=== PATIENT | male | born 1950 | race Caucasian/White ===

== ENCOUNTER → 2018-01-18 09:57 | Outpatient (CLI) | payer BC, MEDICARE, SELFPAY ==
--- NOTE | 2018-01-18 | DI.US.S_ITS ---
PROCEDURE: US ARTERIAL DUPLEX LE BI INDICATIONS: CLAUDICATION BILATERAL TECHNIQUE: Color and pulse Doppler interrogation was performed of both lower extremity arterial systems, with image documentation. COMPARISON: None. FINDINGS: Right lower extremity: Common femoral artery: 111 cm/sec, with triphasic flow. Deep femoral artery: 43 cm/sec, with biphasic flow. Proximal superficial femoral artery: 97 cm/sec, with phasic flow. Mid superficial femoral artery: 88 cm/sec, with triphasic flow. Distal superficial femoral artery: 81 cm/sec, with triphasic flow. Popliteal artery: 77 cm/sec, with triphasic flow. Posterior tibial artery: 68 cm/sec, with biphasic flow. Anterior tibial artery/dorsalis pedis: 48 cm/sec, with triphasic flow. Peterson-scale imaging description: Mild atheromatous plaque throughout. No hemodynamically significant stenosis. Left lower extremity: Common femoral artery: 111 cm/sec, with triphasic flow. Deep femoral artery: 46 cm/sec, with biphasic flow. Proximal superficial femoral artery: 71 cm/sec, with biphasic flow. Mid superficial femoral artery: 78 cm/sec, with triphasic flow. Distal superficial femoral artery: 70 cm/sec, with triphasic flow. Popliteal artery: 82 cm/sec, with triphasic flow. Posterior tibial artery: 58 cm/sec, with triphasic flow. Anterior tibial artery/dorsalis pedis: 33 cm/sec, with triphasic flow. Peterson-scale imaging description: Mild atheromatous plaque throughout. No hemodynamically significant stenosis. IMPRESSION: 1. Mild scattered atheromatous plaque is present throughout the bilateral lower extremities. No hemodynamically significant stenosis to explain patient's calf pain. Dictated by: Paradise Read M.D. on 01/18/2018 at 11:25 Approved by: Paradise Read M.D. on 01/18/2018 at 11:29
== END ==
PROVIDERS: Visit Provider Family Medicine
DX: I73.9 Peripheral vascular disease, unspecified (principal)
CPT/HCPCS: 93925

== ENCOUNTER 2019-09-15 16:48 | Emergency (ER) | payer BC, MEDICARE, SELFPAY ==
--- NOTE | 2019-09-15 16:54 | DI.CT.S_ITS ---
PROCEDURE: CT CERVICAL SPINE WO CON INDICATIONS: mechanical fall, stubled, + LOC, on Coumadin. TECHNIQUE: Noncontrast 3 mm thick sections acquired from the skull base to the T4 level. Sagittal and coronal reformats were then constructed. For radiation dose reduction, the following was used: automated exposure control, adjustment of mA and/or kV according to patient size. COMPARISON: [facility], CR, XR HAND RT MIN 3V, 09/15/2019, 17:16. [facility], CT, CT FACIAL BONES WO CON, 09/15/2019, 17:02. [facility], CT, CT HEAD/BRAIN WO CON, 09/15/2019, 17:02. [facility], MR, C-SPINE WITHOUT CONTRAST, 12/22/2015, 7:52. FINDINGS: Image quality: This examination is limited by involuntary motion artifact. Bones: No fractures or dislocations. Visualized superior ribs are intact. There is mild retrolisthesis seen at the C2-C3 level. 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 There is minimal retrolisthesis seen at C4-C5. The C5-C6 disc space is relatively well-preserved, although bridging anterior osteophytes are seen anteriorly. At C6-C7, there is at least moderate disc space narrowing. Bridging anterior osteophytes are seen anteriorly. At C7-T1, there is moderate to severe loss of disc height seen. Bridging anterior osteophytes are seen. Posteriorly projected endplate osteophytes are seen. Soft tissues: Prevertebral soft tissues are normal in thickness. No paravertebral hematomas. No apical pneumothoraces. IMPRESSION: No acute fractures are seen. Multiple levels of degenerative change are seen, which are progressed compared to 2016. The alignment abnormalities are similar to 2016. Dictated by: Osmin Saul M.D. on 09/15/2019 at 16:46 Approved by: Osmin Saul M.D. on 09/15/2019 at 16:49
--- NOTE | 2019-09-15 16:54 | DI.CT.S_ITS ---
PROCEDURE: CT HEAD/BRAIN WO CON INDICATIONS: mechanical fall, stubled, + LOC, on coumadin. TECHNIQUE: Noncontrast 4.5 mm thick angled axial sections acquired from the foramen magnum to the vertex, with coronal and sagittal reformats. For radiation dose reduction, the following was used: automated exposure control, adjustment of mA and/or kV according to patient size. COMPARISON: [facility], MR, BRAIN W&WO CONTRAST, 09/27/2014, 18:15. [facility], CR, XR HAND RT MIN 3V, 09/15/2019, 17:16. [facility], CT, CT CERVICAL SPINE WO CON, 09/15/2019, 17:02. [facility], CT, CT FACIAL BONES WO CON, 09/15/2019, 17:02. FINDINGS: Image quality: Excellent. CSF spaces: Basal cisterns are patent. No extra-axial fluid collections. The ventricles are symmetric in size and shape. Brain: No intracranial bleeds or masses. There is cerebral volume loss for age, with resultant ventricular and sulcal prominence. There are periventricular and deep white matter chronic small vessel ischemic changes. There is intracranial internal carotid artery atherosclerosis. Skull and face: Calvarium and visualized facial bones appear intact, without suspicious lesions. Sinuses: Visualized sinuses and mastoids are clear. IMPRESSION: Unremarkable intracranial study for age, without acute intracranial hemorrhage. Note is made of age-appropriate brain parenchymal volume loss and chronic small vessel ischemic changes. Dictated by: Osmin Saul M.D. on 09/15/2019 at 16:42 Approved by: Osmin Saul M.D. on 09/15/2019 at 16:43
[2019-09-15 16:55] VITALS: BP 134/107; PULSE 77; RESP 14; TEMP 36.6; O2SAT 98
--- NOTE | 2019-09-15 17:04 | DI.CT.S_ITS ---
PROCEDURE: CT FACIAL BONES WO CON INDICATIONS: fall, on Coumadin, facial trauma on right TECHNIQUE: Noncontrast 2.5 mm thick axial images acquired from the mandible through the frontal sinuses, with coronal and sagittal reformatting. For radiation dose reduction, the following was used: automated exposure control, adjustment of mA and/or kV according to patient size. COMPARISON: [facility], CR, XR HAND RT MIN 3V, 09/15/2019, 17:16. [facility], CT, CT CERVICAL SPINE WO CON, 09/15/2019, 17:02. [facility], CT, CT HEAD/BRAIN WO CON, 09/15/2019, 17:02. FINDINGS: Image quality: Excellent. Bones and teeth: Orbital salinas are intact. Sinus salinas show no fracture or deformity. Nasal bones and septum are intact. Visualized portions of the mandible demonstrate no fractures or subluxation. Zygomatic arches are intact. Pterygoid plates are intact. Visualized portions of the skull base and auditory canals are intact. Sinuses: Mild mucosal thickening is seen involving the inferior right maxillary sinus. Paranasal sinuses are otherwise well aerated, without fluid levels, mucosal thickening, or mucoceles. Mastoid air cells are aerated. Soft tissues: Mild soft tissue irregularity and hematoma can be seen involving the right cheek. Vascular: Visualized vascular structures appear normal in the absence of contrast. Bony vascular foramina and canals are intact. IMPRESSION: No displaced facial bone fractures are seen. Mild soft tissue facial injury on the right. Focal mild right maxillary sinus disease. Dictated by: Osmin Saul M.D. on 09/15/2019 at 16:43 Approved by: Osmin Saul M.D. on 09/15/2019 at 16:46
--- NOTE | 2019-09-15 17:04 | DI.RAD.S_ITS ---
PROCEDURE: XR HAND RT MIN 3V INDICATIONS: fall, on Coumadin, facial trauma on right TECHNIQUE: 3 views of the hand(s) acquired. COMPARISON: None. FINDINGS: Bones: Mildly comminuted fractures are seen involving the 4th and 5th metacarpal bases. No definite intra-articular involvement is detected. No definite additional fractures are detected. Age-appropriate bony degenerative changes are seen. No suspicious lytic or blastic lesions are seen. Soft tissues: No suspicious soft tissue calcifications. IMPRESSION: Fractures are seen involving the 4th and 5th metacarpal bases. If it would be helpful for clinical management decision making, please consider a dedicated hand CT for further evaluation. Dictated by: Osmin Saul M.D. on 09/15/2019 at 16:29 Approved by: Osmin Saul M.D. on 09/15/2019 at 16:31
[2019-09-15] MEDS: TET,DIPH,PERTUSS(ACELL),VAC/PF 0.5 ML SYRINGE IM (17:13)
--- NOTE | 2019-09-15 17:24 | ED.HEATRA ---
HPI - Head Injury General Chief complaint: Trauma Stated complaint: GLF, hit his face Time Seen by Provider: 09/15/19 16:58 Source: patient and family Mode of arrival: Ambulatory Limitations: no limitations History of Present Illness HPI Narrative: CC: A mechanical trip and fall with head neck and facial injury. HPI: The patient is a 69-year-old male with a chronic history of atrial fibrillation for which she is on Xarelto. The patient states that he has had surgery on his back with an infection and now has a week right leg that he must use a cane to ambulate. He states that he was outside and tripped and fell. He used his right hand try and break his fall and injured his right hand. He struck his head on the pavement and is unsure whether or not he lost consciousness but does not remember after the fall and getting up. He complains of a mild headache and right facial pain with an abrasion over his face. He denies any incontinence of urine or stool or seizure activity. He has had no abdominal pain nausea vomiting. He currently has a headache but denies any neck pain. He denies any loss of vision blind spots in front of his eyes however he states that his eyes did not want a focus and seem to want across. He complains of chronic back pain but denies any chest pain or shortness of breath. He has a mild cough. He is a former smoker. He has had no nasal congestion sinus congestion sore throat. He has had no diarrhea and no urinary symptoms. Related Data Home Medications Medication Instructions Recorded Confirmed melatonin 10 mg PO HS #0 06/02/17 09/25/19 trazodone 100 mg PO BEDTIME #0 06/02/17 09/25/19 Xarelto 20 mg PO DAILY 09/15/19 09/25/19 Alfuzosine 10 mg PO DAILY 09/20/19 09/20/19 cyclobenzaprine 10 mg PO TID PRN 09/20/19 09/25/19 famotidine 20 mg PO DAILY 09/20/19 09/25/19 furosemide 20 mg PO DAILY 09/20/19 09/25/19 lisinopril 2.5 mg PO DAILY 09/20/19 09/25/19 metoclopramide HCl [Reglan] 5 mg PO TID 09/20/19 09/25/19 omeprazole 40 mg PO DAILY 09/20/19 09/25/19 oxybutynin chloride 10 mg PO DAILY 09/20/19 09/25/19 pramipexole 0.25 mg PO DAILY 09/20/19 09/25/19 spironolactone 25 mg PO DAILY 09/20/19 09/25/19 Previous Rx's Medication Instructions Recorded hydrocodone-acetaminophen 1 tab PO Q6H PRN 7 Days #20 tab 09/29/19 miscellaneous medical supply See Rx Instructions .ROUTE 09/29/19 .COMPLEX #1 each Allergies Allergy/AdvReac Type Severity Reaction Status Date / Time methadone [METHADONE] Allergy Unknown Verified 09/20/19 12:19 Review of Systems Review of Systems Narrative: His review of systems were all negative except for those mentioned in the history of present illness. 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 Does not appear toxic or ill. HEAD: AT/NC except for an abrasion over his right lateral cheek/maxilla and zygoma. He is diffusely tender to palpation in this area without any depression or bony deformity. EENT: PERRL, FROM of eyes, no discharge, no nystagmus EARS:No drainage from the ears, Tympanic membranes intact bilaterally, clear EAC, no evidence of hemotympanum. NOSE:No epistaxis or nasal drainage MOUTH:Oral mucosa is moist and pink, posterior pharynx is without erythema or exudate. NECK: Supple, no obvious JVD, Trachea is midline without stridor, no palpable LN. SPINE: Palpationof the cervical, Thoracic, and Sacral spine reveals no gross deformity or tenderness. No CVA tenderness. The patient has a scar over the lower lumbar spine which is tender to palpation. THORAX: No deformity, retractions, chest wall tenderness. LUNGS: Clear, symmetrical breath sounds without respiratory distress. HEART: Normal heart tones, heart tones are distant and irregular irregular without an appreciable murmur. ABDOMEN: Soft, non-tender, normal bowel sounds without guarding, rebound, rigidity or palpable mass. EXTREMITIES: No edema, deformity,or cyanosis. The patient's right hand was used to catch himself. He has no tenderness or deformity of the distal radius or ulna. The patient's the patient is tender to palpation over his 3rd 4th and 5th metacarpals of his right hand. He has an abrasion over the palmar metacarpophalangeal joint of his right hand. SKIN: No rash, bruising, petechiae or purpura noted other than those already mentioned. NEURO: Awake, alert, oriented, conversive, cranial nerves II-XII are symmetrical , moves all 4 extremities and is ambulatory with a cane. The patient has symmetrical sensation. The patellar reflex on the left was 1+ well on the right it was 2+. The patient has no drift in his right or left hand in arms against gravity. The patient cannot hold his right leg off the bed against gravity. The right leg drops to the at and then is lifted slightly off the bed. The patient has symmetrical dorsiflexion and plantar flexion strength in his feet. 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 Initial Vital Signs Initial Vital Signs: Vital Signs Temperature 97.8 F 09/15/19 16:55 Pulse Rate 77 09/15/19 16:55 Respiratory Rate 14 09/15/19 16:55 Blood Pressure 134/107 H 09/15/19 16:55 Pulse Oximetry 98 09/15/19 16:55 Course Orders Ordered: Discontinued Medications Hydrocodone Bitart/Acetaminophen (Amagon 5/325) 1 tab PO NOW ONE Stop: 09/15/19 18:08 Last Admin: 09/15/19 18:43 Dose: 1 tab Documented by: RSTONE Diphtheria/Tetanus/Acell Pertussis (Adacel) 0.5 ml IM .ONCE ONE Stop: 09/15/19 17:01 Last Admin: 09/15/19 17:13 Dose: 0.5 ml Documented by: LU Vital Signs Vital signs: Vital Signs - 8 hr 09/15/19 16:55 Temperature 97.8 F Pulse Rate 77 Respiratory Rate 14 Blood Pressure 134/107 H Pulse Oximetry 98 MDM - Head Injury Medical Records Attestation: I reviewed the patient's medical records. Lab Data Attestation: I reviewed the patient's lab results. Result diagrams: 09/15/19 17:34 09/15/19 17:34 Labs: Lab Results 09/15/19 09/15/19 09/15/19 Range/Units 17:34 17:34 17:34 WBC 5.5 (4.5-11.0) X10^3/uL RBC 4.46 L (4.5-5.9) X10^6/uL Hgb 14.0 (13.5-17.5) g/dL Hct 39.8 L (41-53) % MCV 89.4 (80-100) fL MCH 31.4 (26-34) PG MCHC 35.1 (30-36) % RDW 13.4 (11.6-14.8) % Plt Count 251 (150-400) X10^3/uL Neut % (Auto) 57.9 (50-75) % Lymph % (Auto) 30.1 (25-40) % [place] % (Auto) 8.3 (3-14) % Eos % (Auto) 2.2 (2-4) % Baso % (Auto) 1.5 (0-2) % Neut # (Auto) 3200 (9422-0788) /uL Lymph # (Auto) 1700 (4987-6500) /uL [place] # (Auto) 500 (0-900) /uL Eos # (Auto) 100 (0-450) /uL Baso # (Auto) 100 (0-100) /uL PT 27.0 H (10.1-12.7) SECONDS INR 2.4 H (0.9-1.3) Sodium 130 L (137-145) mmol/L Potassium 4.5 (3.4-5.1) mmol/L Chloride 96 L (98-107) mmol/L Carbon Dioxide 27 (22-32) mmol/L BUN 13 (9-20) mg/dL Creatinine 0.91 (0.66-1.25) mg/dL Estimated GFR > 60.0 (>60) mL/min BUN/Creatinine Ratio 14.3 (6-22) Glucose 101 (80-110) mg/dL Calcium 9.3 (8.4-10.2) mg/dL Total Bilirubin 0.4 (0.2-1.3) mg/dL AST 25 (17-59) IU/L ALT 13 (<50) IU/L Alkaline Phosphatase 80 (38-126) U/L Total Protein 7.8 (6.3-8.2) g/dL Albumin 4.2 (3.5-5.0) g/dL Globulin 3.6 (1.7-4.1) g/dL Albumin/Globulin Ratio 1.2 (1.0-2.8) ECG Data Attestation: I personally reviewed and interpreted this ECG as follows: Interpretation: The patient's EKG obtained on September 14 at 5:13 p.m. reveals atrial fibrillation with a ventricular rate of 82. The QRS is 86 milliseconds in duration. QTC is 439 milliseconds. There is mild left axis deviation. The patient has a Q-wave in lead III he and V1 with inverted T-waves in V1 and III. There is also an inverted T-wave in AVF. The patient has artifact in V1. There is low-voltage throughout the precordial leads. There is no acute diagnostic ST segment changes. The EKG is consistent with inferior wall ischemia. Discharge Plan Departure Patient Disposition: Home Clinical Impression: Head, face & neck injury, Fall, Concussion, Abrasion of face, Atrial fibrillation, Injury of hand, right Discharge Date/Time: 09/15/19 19:38 Instructions: DI for Concussion, DI for a Hand Fracture, DI for Closed Head Injury, DI for Abrasion Activity Restrictions/Additional Instructions: 1. Follow up with Dr. Cowan for the fractures in your right hand. 2. The CT scans of your face head and neck revealed that there are no fractures of your facial bones the cervical spine or any bleeding inside your head. 3. Follow-up in be rechecked by calling your primary care physician on Tuesday. If you develop increasing confusion disorientation, persistent nausea and vomiting worsening headache you need to return to the emergency department. 4. For your abrasion on your face, wash it daily and apply a triple antibiotic. Prescriptions: No Action melatonin 10 MG capsule 10 mg PO HS Qty: 0 RF: 0 trazodone 100 MG tablet 100 mg PO BEDTIME Qty: 0 RF: 0 Xarelto 20 mg tablet 20 mg PO DAILY RF: 0 Alfuzosine 10 mg PO DAILY RF: 0 cyclobenzaprine 10 mg Tablet 10 mg PO TID PRN (Reason: Spasms) RF: 0 oxybutynin chloride 10 mg Tablet Extended Release 24hr 10 mg PO DAILY RF: 0 spironolactone 25 mg Tablet 25 mg PO DAILY RF: 0 famotidine 20 mg Tablet 20 mg PO DAILY RF: 0 pramipexole 0.125 mg Tablet 0.25 mg PO DAILY RF: 0 omeprazole 20 mg Capsule,Delayed Release(Dr/Ec) 40 mg PO DAILY RF: 0 furosemide 20 mg Tablet 20 mg PO DAILY RF: 0 lisinopril 2.5 mg Tablet 2.5 mg PO DAILY RF: 0 metoclopramide HCl [Reglan] 5 MG tablet 5 mg PO TID RF: 0 hydrocodone-acetaminophen 5-325 mg Tablet 1 tab PO Q6H PRN (Reason: Muscle Pain) 7 Days Qty: 20 RF: 0 miscellaneous medical supply Misc See Rx Instructions .ROUTE .COMPLEX Qty: 1 RF: 0 Referrals: Cory Cowan MD [Physician] - (call for a follow up evaluation and treatment of metacarpal fractures of the right hand.)
[2019-09-15 17:35] VITALS: BP 122/74; PULSE 77; RESP 18; O2SAT 99
--- NOTE | 2019-09-15 17:38 | DI.RAD.S_ITS ---
PROCEDURE: XR CHEST 1V INDICATIONS: Trip, fall head, neck facial injury, cough TECHNIQUE: One view of the chest was acquired. COMPARISON: [facility], CR, XR HAND RT MIN 3V, 09/15/2019, 17:16. [facility], CT, CT HEAD/BRAIN WO CON, 09/15/2019, 17:02. [facility], CT, CT FACIAL BONES WO CON, 09/15/2019, 17:02. [facility], CT, CT CERVICAL SPINE WO CON, 09/15/2019, 17:02. FINDINGS: Surgical changes and devices: None. Lungs and pleura: An incomplete inspiratory result is noted, causing a crowded appearance to the lung markings. No focal infiltrates are seen. No pneumothorax or significant pleural effusions are seen. Mediastinum: The cardiac contours are within normal limits. The aorta demonstrates calcification and tortuosity. Bones and chest wall: Age-appropriate bony degenerative changes are seen. No suspicious bony lesions. Overlying soft tissues appear unremarkable. IMPRESSION: No acute portable chest abnormality is seen. Dictated by: Osmin Saul M.D. on 09/15/2019 at 17:13 Approved by: Osmin aSul M.D. on 09/15/2019 at 17:14
[2019-09-15 17:43] LABS: Add Manual Diff / Slide Review NO; Basophils Absolute Auto 100 /uL (0-100); Basophils Percent Auto 1.5 % (0-2); Eosinophils Absolute Auto 100 /uL (0-450); Eosinophils Percent Auto 2.2 % (2-4); Hematocrit 39.8 % (41-53); Lymphocytes Absolute Auto 1700 /uL (1100-4500); Lymphocytes Percent Auto 30.1 % (25-40); Mean Corpuscular HGB Conc 35.1 % (30-36); Mean Corpuscular Hemoglobin 31.4 PG (26-34); Mean Corpuscular Volume 89.4 fL (80-100); Monocytes Absolute Auto 500 /uL (0-900); Monocytes Percent Auto 8.3 % (3-14); Neutrophils Absolute Auto 3200 /uL (1500-7000); Neutrophils Percent Auto 57.9 % (50-75); Platelet Count 251 X10^3/uL (150-400); Red Blood Cell Count 4.46 X10^6/uL (4.5-5.9); Red Cell Distribution Width 13.4 % (11.6-14.8); White Blood Cell Count 5.5 X10^3/uL (4.5-11.0)
[2019-09-15 17:52] LABS: INR 2.4 (0.9-1.3)
[2019-09-15 17:55] LABS: Alanine Aminotransferase 13 IU/L (<50); Albumin 4.2 g/dL (3.5-5.0); Albumin Globulin Ratio 1.2 (1.0-2.8); Alkaline Phosphatase 80 U/L (38-126); Aspartate Aminotransferase 25 IU/L (17-59); BUN Creatinine Ratio 14.3 (6-22); Bilirubin Total 0.4 mg/dL (0.2-1.3); Blood Urea Nitrogen 13 mg/dL (9-20); Calcium 9.3 mg/dL (8.4-10.2); Carbon Dioxide 27 mmol/L (22-32); Chloride 96 mmol/L (98-107); Estimated Glomerular Filt Rate > 60.0 mL/min (>60); Globulin 3.6 g/dL (1.7-4.1); Glucose 101 mg/dL (80-110); HEMOLYSIS < 15 (0-50); Potassium 4.5 mmol/L (3.4-5.1); Sodium 130 mmol/L (137-145); Total Protein 7.8 g/dL (6.3-8.2)
[2019-09-15] MEDS: HYDROCODONE/ACET 5/325 TABLET 1 TAB PO (18:43)
[2019-09-15 18:48] VITALS: BP 126/67; PULSE 76; RESP 16; O2SAT 98
[2019-09-15 19:37] VITALS: BP 137/87; PULSE 83; RESP 16; TEMP 36.5; O2SAT 99
== END 2019-09-15 19:38 | disposition home or self-care (01) ==
PROVIDERS: Emergency Provider Emergency Medicine
DX: S19.9XXA Unspecified injury of neck, initial encounter (principal); S06.0X0A Concussion without loss of consciousness, initial encounter; S00.81XA Abrasion of other part of head, initial encounter; S69.91XA Unspecified injury of right wrist, hand and finger(s), initial encounter; I48.91 Unspecified atrial fibrillation; Z79.01 Long term (current) use of anticoagulants; Z23 Encounter for immunization; W19.XXXA Unspecified fall, initial encounter; R07.9 Chest pain, unspecified
CPT/HCPCS: 29125; 36415; 70450; 70486; 71045; 72125; 73130; 80053; 85025; 85610; 90471; 93005; 93010; 99285; 90715

== ENCOUNTER 2019-09-20 12:07 | Inpatient (IN) | payer BC, MEDICARE, SELFPAY ==
[2019-09-20] VITALS (8 sets, daily range): BP systolic 111–147; BP diastolic 62–87; PULSE 81–94; RESP 15–19; TEMP 36.2–37.2; O2SAT 97–100; BMI 28.0
--- NOTE | 2019-09-20 12:20 | ED_ITS ---
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 Patient presents to the emergency department reporting left-sided ankle and foot pain that started yesterday. He reports falling a few days ago from what he believes to be a slippery bathroom floor but did not experience ankle pain at this time. Patient reports a dull aching 5/10 pain that is worse with weight-bearing and palpation. Today he was not able to put any weight on his ankle. Patient denies any difficulty wiggling his toes. He denies any other injury such as hitting his head, hip pain, knee p ain, chills, cough, shortness of breath, chest pain, syncope, dizziness or any other concerns. Family states he has had a temp of 99?F for the past 2 nights without any other symptoms. Patient has a cast on right wrist from previous injury from fall. Related Data Home Medications Medication Instructions Recorded Confirmed melatonin 10 mg PO HS #0 06/02/17 09/25/19 trazodone 100 mg PO BEDTIME #0 06/02/17 09/25/19 Xarelto 20 mg PO DAILY 09/15/19 09/25/19 Alfuzosine 10 mg PO DAILY 09/20/19 09/20/19 cyclobenzaprine 10 mg PO TID PRN 09/20/19 09/25/19 famotidine 20 mg PO DAILY 09/20/19 09/25/19 furosemide 20 mg PO DAILY 09/20/19 09/25/19 hydrocodone-acetaminophen 1 tab PO Q6H PRN 09/20/19 09/25/19 lisinopril 2.5 mg PO DAILY 09/20/19 09/25/19 metoclopramide HCl [Reglan] 5 mg PO TID 09/20/19 09/25/19 metoprolol succinate 25 mg PO BID 09/20/19 09/25/19 omeprazole 40 mg PO DAILY 09/20/19 09/25/19 oxybutynin chloride 10 mg PO DAILY 09/20/19 09/25/19 pramipexole 0.25 mg PO DAILY 09/20/19 09/25/19 spironolactone 25 mg PO DAILY 09/20/19 09/25/19 Previous Rx's Medication Instructions Recorded cephalexin 500 mg PO Q8H #20 cap 09/22/19 Allergies Allergy/AdvReac Type Severity Reaction Status Date / Time methadone [METHADONE] Allergy Unknown Verified 09/20/19 12:19 Review of Systems <JULIUS Davis - Last Filed: 09/20/19 18:35> Review of Systems Narrative: REVIEW OF SYSTEMS: GENERAL: Denies chills. HENT: No head trauma. EYES: No double vision or vision loss. CARDIOVASCULAR: No chest pain or syncope. RESPIRATORY: No shortness of breath or cough. GASTROINTESTINAL: No nausea, vomiting, diarrhea, or constipation. MUSCULOSKELETAL: Complains of right ankle and foot pain, see HPI. INTEGUMENTARY: No rash, lesions, or pruritus. NEURO: No numbness, tingling. Patient History <JULIUS Davis - Last Filed: 09/20/19 18:35> Social History household members: spouse Smoking Status: Former smoker alcohol intake: current Smoking Status: Former smoker alcohol intake frequency: 0-2 drinks per day Substance Use Type: does not use Exam <JULIUS Davis - Last Filed: 09/20/19 18:35> Initial Vital Signs Initial Vital Signs: Vital Signs Temperature 98.9 F 09/20/19 12:10 Pulse Rate 87 09/20/19 12:10 Respiratory Rate 15 09/20/19 12:10 Blood Pressure 131/87 09/20/19 12:10 Pulse Oximetry 97 09/20/19 12:10 PHYSICAL EXAMINATION: GENERAL: Well groomed, alert, and cooperative. Answers questions promptly and appropriately. Vital signs noted. HENT: Normocephalic, atraumatic. EYES: Symmetrical, sclera white, no periorbital swelling. CARDIOVASCULAR: AFib as seen on monitor. RESPIRATORY: Normal respiratory rate, trachea midline, airway patent. No stridor, nasal flaring or accessory muscle use. MUSCULOSKELETAL: Tenderness and mild to moderate swelling noted to left lateral malleolus, some tenderness to right malleolus. Patient also exhibits some tenderness to distal aspect of 5th metatarsal. No ecchymosis. No pain to palpation of knee. EXTREMITIES: CMS intact. No pedal edema. SKIN: Warm, dry, soft, appropriate color for ethnicity. No lesions, rashes, or wounds on visible area. NEURO: Alert and Oriented X 3. PSYCH: Appropriate affect and mood. <Serjio Palma MD - Last Filed: 09/29/19 07:55> Initial Vital Signs Initial Vital Signs: Vital Signs Temperature 98.9 F 09/20/19 12:10 Pulse Rate 87 09/20/19 12:10 Respiratory Rate 15 09/20/19 12:10 Blood Pressure 131/87 09/20/19 12:10 Pulse Oximetry 97 09/20/19 12:10 Course <JULIUS Davis - Last Filed: 09/20/19 18:35> Course Course Narrative: Discussed with patient and daughter about discharge instructions, daughter was concerned about mobility around the house as patient is unable to bear weight on ankle. Physical therapy was called for re-evaluation. Patient was given a Vicodin before evaluation to help with pain in hopes of improving mobility. Physical therapy evaluated patient, reported he was very unstable, patient was unable to use walker due to fracture right wrist. Patient is at increased risk for falls due to previous drop foot and current left ankle swelling and cellulitis. Orders Ordered: Discontinued Medications Acetaminophen (Tylenol) 650 mg PO NOW ONE Stop: 09/20/19 12:24 Last Admin: 09/20/19 12:54 Dose: 650 mg Documented by: DENIZ Acetaminophen (Tylenol) 650 mg PO Q6HR PRN PRN Reason: Fever/Mild Pain (1-3) Hydrocodone Bitart/Acetaminophen ([place] 5/325) 1 tab PO NOW ONE Stop: 09/20/19 16:29 Last Admin: 09/20/19 16:34 Dose: 1 tab Documented by: LU Hydrocodone Bitart/Acetaminophen ([place] 5/325) 1 tab PO Q4HR PRN PRN Reason: Pain, Moderate (4-6) Last Admin: 09/22/19 09:02 Dose: 1 tab Documented by: Admin: 09/21/19 21:39 Dose: 1 tab Documented by: Admin: 09/21/19 16:53 Dose: 1 tab Documented by: Admin: 09/21/19 09:35 Dose: 1 tab Documented by: Admin: 09/21/19 05:06 Dose: 1 tab Documented by: Admin: 09/20/19 21:34 Dose: 1 tab Documented by: KAREL Bisacodyl (Dulcolax) 10 mg NM DAILY PRN PRN Reason: Constipation Cyclobenzaprine HCl (Flexeril) 10 mg PO TID PRN PRN Reason: Spasms Last Admin: 09/22/19 09:02 Dose: 10 mg Documented by: Admin: 09/21/19 21:40 Dose: 10 mg Documented by: Admin: 09/21/19 16:52 Dose: 10 mg Documented by: Admin: 09/21/19 09:35 Dose: 10 mg Documented by: Admin: 09/20/19 22:11 Dose: 10 mg Documented by: KAREL Docusate Sodium (Colace) 100 mg PO BID PRN PRN Reason: Constipation Last Admin: 09/21/19 09:35 Dose: 100 mg Documented by: Admin: 09/20/19 22:12 Dose: 100 mg Documented by: KAREL Famotidine (Pepcid Ac) 20 mg PO DAILY [facility] Last Admin: 09/22/19 07:47 Dose: 20 mg Documented by: Admin: 09/21/19 09:25 Dose: 20 mg Documented by: HATTIE Furosemide (Lasix) 20 mg PO DAILY [facility] Last Admin: 09/22/19 07:47 Dose: 20 mg Documented by: Admin: 09/21/19 09:25 Dose: 20 mg Documented by: HATTIE Heparin Sodium (Porcine) (Heparin) 5,000 unit SUBCUT BID [facility] Last Admin: 09/20/19 21:34 Dose: 5,000 unit Documented by: KAREL Vancomycin HCl/Dextrose (Vancomycin) 1,500 mg in 300 mls @ 200 mls/hr IV NOW ONE Stop: 09/20/19 16:11 Last Infusion: 09/20/19 16:59 Dose: 0 mls/hr Documented by: Admin: 09/20/19 15:18 Dose: 200 mls/hr Documented by: LU Sodium Chloride (Normal Saline 0.9%) 1,000 mls @ 150 mls/hr IV CONT SIVAN Last Infusion: 09/20/19 18:32 Dose: 0 mls/hr Documented by: Admin: 09/20/19 15:18 Dose: 150 mls/hr Documented by: LU Doxycycline Hyclate 100 mg/ (Sodium Chloride) 100 mls @ 100 mls/hr IV Q12H [facility] Last Infusion: 09/21/19 01:06 Dose: 0 mls/hr Documented by: Admin: 09/20/19 23:39 Dose: 100 mls/hr Documented by: KAREL Sodium Chloride (Normal Saline 0.9%) 250 mls @ 21 mls/hr IV Q24H PRN PRN Reason: Flush Last Admin: 09/20/19 23:39 Dose: 21 mls/hr Documented by: WANDA Ceftriaxone Sodium/Dextrose (Rocephin) 2 gm in 50 mls @ 100 mls/hr IV Q24H [facility] Last Infusion: 09/22/19 10:40 Dose: 0 mls/hr Documented by: Admin: 09/22/19 09:06 Dose: 100 mls/hr Documented by: Rosalinda Infusion: 09/21/19 12:31 Dose: 100 mls/hr Documented by: Y Admin: 09/21/19 12:01 Dose: 100 mls/hr Documented by: HATTIE Vancomycin HCl/Dextrose (Vancomycin) 1,500 mg in 300 mls @ 200 mls/hr IV Q12H [facility] Last Infusion: 09/22/19 14:30 Dose: 0 mls/hr Documented by: Rosalinda Admin: 09/22/19 11:35 Dose: 150 mls/hr Documented by: Infusion: 09/22/19 01:29 Dose: 200 mls/hr Documented by: Admin: 09/21/19 23:59 Dose: 200 mls/hr Documented by: Infusion: 09/21/19 18:00 Dose: 200 mls/hr Documented by: Admin: 09/21/19 12:55 Dose: 200 mls/hr Documented by: CWOOD Sodium Chloride (Normal Saline 0.9%) 500 mls @ 1,000 mls/hr IV BOLUS ONE Stop: 09/22/19 07:56 Last Admin: 09/22/19 07:50 Dose: 1,000 mls/hr Documented by: BETHANY Ketorolac Tromethamine (Toradol) 15 mg IV Q6HR PRN PRN Reason: Pain, Moderate (4-6) Stop: 09/25/19 19:44 Last Admin: 09/21/19 17:52 Dose: 15 mg Documented by: KAREL Lisinopril (Zestril) 2.5 mg PO DAILY [facility] Last Admin: 09/22/19 07:47 Dose: 2.5 mg Documented by: Admin: 09/21/19 09:25 Dose: 2.5 mg Documented by: HATTIE Melatonin (Melatonin) 9 mg PO BEDTIME [facility] Last Admin: 09/21/19 21:39 Dose: 9 mg Documented by: KAREL Metoclopramide HCl (Reglan) 5 mg PO TID [facility] Last Admin: 09/21/19 09:27 Dose: 5 mg Documented by: Admin: 09/20/19 22:23 Dose: Not Given Documented by: KAREL Metoclopramide HCl (Reglan) 5 mg PO AC [facility] Last Admin: 09/22/19 10:48 Dose: 5 mg Documented by: Admin: 09/22/19 07:50 Dose: 5 mg Documented by: Admin: 09/21/19 16:42 Dose: 5 mg Documented by: KAREL Metoprolol Succinate (Toprol Xl) 25 mg PO BID [facility] Last Admin: 09/22/19 07:47 Dose: 25 mg Documented by: Admin: 09/21/19 19:33 Dose: 25 mg Documented by: Admin: 09/21/19 09:26 Dose: 25 mg Documented by: Admin: 09/20/19 22:12 Dose: 25 mg Documented by: KAREL Metoprolol Tartrate (Lopressor) 5 mg IV NOW ONE Stop: 09/22/19 04:37 Last Admin: 09/22/19 04:50 Dose: 5 mg Documented by: KEITH Naloxone HCl (Narcan) 0.2 mg IV Q2MIN PRN PRN Reason: Opiate Reversal Non-Formulary Medication (Melatonin) 10 mg PO BEDTIME [facility] Last Admin: 09/20/19 22:07 Dose: Not Given Documented by: KAREL Ondansetron HCl (Zofran) 4 mg IV Q8HR PRN PRN Reason: Nausea And Vomiting Oxybutynin Chloride (Ditropan Xl) 10 mg PO DAILY [facility] Last Admin: 09/22/19 07:50 Dose: 10 mg Documented by: Y Admin: 09/21/19 09:26 Dose: 10 mg Documented by: HATTIE Pramipexole Dihydrochloride (Mirapex) 0.25 mg PO DAILY [facility] Last Admin: 09/22/19 07:51 Dose: 0.25 mg Documented by: Y Admin: 09/21/19 09:26 Dose: 0.25 mg Documented by: HATTIE Rivaroxaban (Xarelto) 20 mg PO DAILY [facility] Last Admin: 09/22/19 07:47 Dose: 20 mg Documented by: Y Admin: 09/21/19 09:26 Dose: 20 mg Documented by: HATTIE Sodium Chloride (Normal Saline 0.9% Flush) 10 ml IV PRN PRN PRN Reason: Flush Last Admin: 09/21/19 17:52 Dose: 10 ml Documented by: KAREL Sodium Chloride (Normal Saline 0.9% Flush) 10 ml IV BID [facility] Last Admin: 09/22/19 07:51 Dose: 10 ml Documented by: Admin: 09/21/19 21:39 Dose: 10 ml Documented by: Admin: 09/21/19 09:27 Dose: 10 ml Documented by: Admin: 09/20/19 22:24 Dose: 10 ml Documented by: KAREL Spironolactone (Aldactone) 25 mg PO DAILY [facility] Last Admin: 09/22/19 07:48 Dose: 25 mg Documented by: Rosalinda Admin: 09/21/19 09:25 Dose: 25 mg Documented by: HATTIE Trazodone HCl (Desyrel) 100 mg PO BEDTIME [facility] Last Admin: 09/21/19 21:39 Dose: 100 mg Documented by: Admin: 09/20/19 22:11 Dose: 100 mg Documented by: KAREL Vancomycin HCl (Vancomycin Per Pharmacy) 1 request MISC NOW ONE Stop: 09/21/19 10:16 Last Admin: 09/21/19 12:55 Dose: Not Given Documented by: HATTIE Vancomycin HCl (Vancomycin Trough) 1 request [facility] NOW ONE Stop: 09/22/19 23:31 Consultations Consultation #1: Patient staffed with Dr. Palma discussed history, symptoms, results, and plan of care. 1545: Spoke with Dr. Guzman for possible admission, concern with wrist fracture, left-sided drop foot, and difficulty bearing weight on left foot due to new infection. Discussed patient lives at home with his . Discussed that patient does not meet inpatient criteria. 1720: Physical therapy at bedside to evaluate mobility of patient. 1730: Spoke with Dr. Guzman about PT evaluation, accepts patient to be admitted under observation. Requested CT before admission. Vital Signs Vital signs: Vital Signs - 8 hr 09/20/19 12:10 09/20/19 14:16 09/20/19 15:27 Temperature 98.9 F Pulse Rate 87 93 H 94 H Respiratory Rate 15 19 18 Blood Pressure 131/87 Blood Pressure [Left Arm] 116/67 Blood Pressure [Right Arm] 120/74 Pulse Oximetry 97 98 100 09/20/19 16:56 Temperature Pulse Rate 93 H Respiratory Rate 16 Blood Pressure Blood Pressure [Left Arm] 111/62 Blood Pressure [Right Arm] Pulse Oximetry 98 <Serjio Palma MD - Last Filed: 09/29/19 07:55> Orders Ordered: Discontinued Medications Acetaminophen (Tylenol) 650 mg PO NOW ONE Stop: 09/20/19 12:24 Last Admin: 09/20/19 12:54 Dose: 650 mg Documented by: LAURELOTEM Acetaminophen (Tylenol) 650 mg PO Q6HR PRN PRN Reason: Fever/Mild Pain (1-3) Hydrocodone Bitart/Acetaminophen ([place] 5/325) 1 tab PO NOW ONE Stop: 09/20/19 16:29 Last Admin: 09/20/19 16:34 Dose: 1 tab Documented by: LU Hydrocodone Bitart/Acetaminophen ([place] 5/325) 1 tab PO Q4HR PRN PRN Reason: Pain, Moderate (4-6) Last Admin: 09/22/19 09:02 Dose: 1 tab Documented by: Admin: 09/21/19 21:39 Dose: 1 tab Documented by: Admin: 09/21/19 16:53 Dose: 1 tab Documented by: Admin: 09/21/19 09:35 Dose: 1 tab Documented by: Admin: 09/21/19 05:06 Dose: 1 tab Documented by: Admin: 09/20/19 21:34 Dose: 1 tab Documented by: KAREL Bisacodyl (Dulcolax) 10 mg NM DAILY PRN PRN Reason: Constipation Cyclobenzaprine HCl (Flexeril) 10 mg PO TID PRN PRN Reason: Spasms Last Admin: 09/22/19 09:02 Dose: 10 mg Documented by: Admin: 09/21/19 21:40 Dose: 10 mg Documented by: Admin: 09/21/19 16:52 Dose: 10 mg Documented by: Admin: 09/21/19 09:35 Dose: 10 mg Documented by: Admin: 09/20/19 22:11 Dose: 10 mg Documented by: KAREL Docusate Sodium (Colace) 100 mg PO BID PRN PRN Reason: Constipation Last Admin: 09/21/19 09:35 Dose: 100 mg Documented by: Admin: 09/20/19 22:12 Dose: 100 mg Documented by: KAREL Famotidine (Pepcid Ac) 20 mg PO DAILY [facility] Last Admin: 09/22/19 07:47 Dose: 20 mg Documented by: Admin: 09/21/19 09:25 Dose: 20 mg Documented by: HATTIE Furosemide (Lasix) 20 mg PO DAILY [facility] Last Admin: 09/22/19 07:47 Dose: 20 mg Documented by: Admin: 09/21/19 09:25 Dose: 20 mg Documented by: HATTIE Heparin Sodium (Porcine) (Heparin) 5,000 unit SUBCUT BID [facility] Last Admin: 09/20/19 21:34 Dose: 5,000 unit Documented by: KAREL Vancomycin HCl/Dextrose (Vancomycin) 1,500 mg in 300 mls @ 200 mls/hr IV NOW O NE Stop: 09/20/19 16:11 Last Infusion: 09/20/19 16:59 Dose: 0 mls/hr Documented by: Admin: 09/20/19 15:18 Dose: 200 mls/hr Documented by: RSTONE Sodium Chloride (Normal Saline 0.9%) 1,000 mls @ 150 mls/hr IV CONT SIVAN Last Infusion: 09/20/19 18:32 Dose: 0 mls/hr Documented by: Admin: 09/20/19 15:18 Dose: 150 mls/hr Documented by: LU Doxycycline Hyclate 100 mg/ (Sodium Chloride) 100 mls @ 100 mls/hr IV Q12H [facility] Last Infusion: 09/21/19 01:06 Dose: 0 mls/hr Documented by: Admin: 09/20/19 23:39 Dose: 100 mls/hr Documented by: KAREL Sodium Chloride (Normal Saline 0.9%) 250 mls @ 21 mls/hr IV Q24H PRN PRN Reason: Flush Last Admin: 09/20/19 23:39 Dose: 21 mls/hr Documented by: WANDA Ceftriaxone Sodium/Dextrose (Rocephin) 2 gm in 50 mls @ 100 mls/hr IV Q24H [facility] Last Infusion: 09/22/19 10:40 Dose: 0 mls/hr Documented by: Admin: 09/22/19 09:06 Dose: 100 mls/hr Documented by: Infusion: 09/21/19 12:31 Dose: 100 mls/hr Documented by: Admin: 09/21/19 12:01 Dose: 100 mls/hr Documented by: HATTIE Vancomycin HCl/Dextrose (Vancomycin) 1,500 mg in 300 mls @ 200 mls/hr IV Q12H [facility] Last Infusion: 09/22/19 14:30 Dose: 0 mls/hr Documented by: Admin: 09/22/19 11:35 Dose: 150 mls/hr Documented by: Infusion: 09/22/19 01:29 Dose: 200 mls/hr Documented by: Admin: 09/21/19 23:59 Dose: 200 mls/hr Documented by: Infusion: 09/21/19 18:00 Dose: 200 mls/hr Documented by: Admin: 09/21/19 12:55 Dose: 200 mls/hr Documented by: HATTIE Sodium Chloride (Normal Saline 0.9%) 500 mls @ 1,000 mls/hr IV BOLUS ONE Stop: 09/22/19 07:56 Last Admin: 09/22/19 07:50 Dose: 1,000 mls/hr Documented by: BETHANY Ketorolac Tromethamine (Toradol) 15 mg IV Q6HR PRN PRN Reason: Pain, Moderate (4-6) Stop: 09/25/19 19:44 Last Admin: 09/21/19 17:52 Dose: 15 mg Documented by: KAREL Lisinopril (Zestril) 2.5 mg PO DAILY [facility] Last Admin: 09/22/19 07:47 Dose: 2.5 mg Documented by: Admin: 09/21/19 09:25 Dose: 2.5 mg Documented by: HATTIE Melatonin (Melatonin) 9 mg PO BEDTIME [facility] Last Admin: 09/21/19 21:39 Dose: 9 mg Documented by: KAREL Metoclopramide HCl (Reglan) 5 mg PO TID [facility] Last Admin: 09/21/19 09:27 Dose: 5 mg Documented by: Admin: 09/20/19 22:23 Dose: Not Given Documented by: KAREL Metoclopramide HCl (Reglan) 5 mg PO AC [facility] Last Admin: 09/22/19 10:48 Dose: 5 mg Documented by: Admin: 09/22/19 07:50 Dose: 5 mg Documented by: Admin: 09/21/19 16:42 Dose: 5 mg Documented by: KAREL Metoprolol Succinate (Toprol Xl) 25 mg PO BID [facility] Last Admin: 09/22/19 07:47 Dose: 25 mg Documented by: Admin: 09/21/19 19:33 Dose: 25 mg Documented by: Admin: 09/21/19 09:26 Dose: 25 mg Documented by: Admin: 09/20/19 22:12 Dose: 25 mg Documented by: KAREL Metoprolol Tartrate (Lopressor) 5 mg IV NOW ONE Stop: 09/22/19 04:37 Last Admin: 09/22/19 04:50 Dose: 5 mg Documented by: KEITH Naloxone HCl (Narcan) 0.2 mg IV Q2MIN PRN PRN Reason: Opiate Reversal Non-Formulary Medication (Melatonin) 10 mg PO BEDTIME [facility] Last Admin: 09/20/19 22:07 Dose: Not Given Documented by: KAREL Ondansetron HCl (Zofran) 4 mg IV Q8HR PRN PRN Reason: Nausea And Vomiting Oxybutynin Chloride (Ditropan Xl) 10 mg PO DAILY [facility] Last Admin: 09/22/19 07:50 Dose: 10 mg Documented by: Rosalinda Admin: 09/21/19 09:26 Dose: 10 mg Documented by: HATTIE Pramipexole Dihydrochloride (Mirapex) 0.25 mg PO DAILY [facility] Last Admin: 09/22/19 07:51 Dose: 0.25 mg Documented by: Rosalinda Admin: 09/21/19 09:26 Dose: 0.25 mg Documented by: HATTIE Rivaroxaban (Xarelto) 20 mg PO DAILY [facility] Last Admin: 09/22/19 07:47 Dose: 20 mg Documented by: Rosalinda Admin: 09/21/19 09:26 Dose: 20 mg Documented by: HATTIE Sodium Chloride (Normal Saline 0.9% Flush) 10 ml IV PRN PRN PRN Reason: Flush Last Admin: 09/21/19 17:52 Dose: 10 ml Documented by: KAREL Sodium Chloride (Normal Saline 0.9% Flush) 10 ml IV BID [facility] Last Admin: 09/22/19 07:51 Dose: 10 ml Documented by: Admin: 09/21/19 21:39 Dose: 10 ml Documented by: Admin: 09/21/19 09:27 Dose: 10 ml Documented by: Admin: 09/20/19 22:24 Dose: 10 ml Documented by: KAREL Spironolactone (Aldactone) 25 mg PO DAILY [facility] Last Admin: 09/22/19 07:48 Dose: 25 mg Documented by: Admin: 09/21/19 09:25 Dose: 25 mg Documented by: HATTIE Trazodone HCl (Desyrel) 100 mg PO BEDTIME [facility] Last Admin: 09/21/19 21:39 Dose: 100 mg Documented by: Admin: 09/20/19 22:11 Dose: 100 mg Documented by: KAREL Vancomycin HCl (Vancomycin Per Pharmacy) 1 request [facility] NOW ONE Stop: 09/21/19 10:16 Last Admin: 09/21/19 12:55 Dose: Not Given Documented by: HATTIE Vancomycin HCl (Vancomycin Trough) 1 request [facility] NOW ONE Stop: 09/22/19 23:31 Vital Signs Vital signs: Vital Signs - 8 hr 09/20/19 12:10 09/20/19 14:16 09/20/19 15:27 Temperature 98.9 F Pulse Rate 87 93 H 94 H Respiratory Rate 15 19 18 Blood Pressure 131/87 Blood Pressure [Left Arm] 116/67 Blood Pressure [Right Arm] 120/74 Pulse Oximetry 97 98 100 09/20/19 16:56 Temperature Pulse Rate 93 H Respiratory Rate 16 Blood Pressure Blood Pressure [Left Arm] 111/62 Blood Pressure [Right Arm] Pulse Oximetry 98 MDM - Extremity Injury (Lower) <JULIUS Davis - Last Filed: 09/20/19 18:35> Medical Records Attestation: I reviewed the patient's medical records. Lab Data Attestation: I reviewed the patient's lab results. Result diagrams: 09/22/19 05:26 09/22/19 05:26 Labs: Lab Results 09/20/19 09/20/19 09/20/19 Range/Units 13:42 13:42 13:42 WBC 8.2 (4.5-11.0) X10^3/uL RBC 4.01 L (4.5-5.9) X10^6/uL Hgb 12.7 L (13.5-17.5) g/dL Hct 36.3 L (41-53) % MCV 90.5 (80-100) fL MCH 31.5 (26-34) PG MCHC 34.8 (30-36) % RDW 13.4 (11.6-14.8) % Plt Count 292 (150-400) X10^3/uL Neut % (Auto) 71.4 (50-75) % Lymph % (Auto) 16.8 L (25-40) % [place] % (Auto) 11.3 (3-14) % Eos % (Auto) 0.2 L (2-4) % Baso % (Auto) 0.3 (0-2) % Neut # (Auto) 5800 (2379-7379) /uL Lymph # (Auto) 1400 (4028-4632) /uL [place] # (Auto) 900 (0-900) /uL Eos # (Auto) 0 (0-450) /uL Baso # (Auto) 0 (0-100) /uL ESR 81 H (0-15) MM/HR Sodium 129 L (137-145) mmol/L Potassium 3.9 (3.4-5.1) mmol/L Chloride 91 L (98-107) mmol/L Carbon Dioxide 28 (22-32) mmol/L BUN 13 (9-20) mg/dL Creatinine 0.83 (0.66-1.25) mg/dL Estimated GFR > 60.0 (>60) mL/min BUN/Creatinine Ratio 15.7 (6-22) Glucose 159 H (80-110) mg/dL Lactate 1.8 (0.7-2.1) mmol/L Uric Acid 5.1 (3.5-8.5) mg/dL Calcium 9.3 (8.4-10.2) mg/dL Magnesium (1.6-2.3) mg/dL Total Bilirubin 1.1 (0.2-1.3) mg/dL AST 24 (17-59) IU/L ALT 16 (<50) IU/L Alkaline Phosphatase 101 (38-126) U/L C-Reactive Protein 15.1 H (<1.0) mg/dL Total Protein 8.0 (6.3-8.2) g/dL Albumin 4.2 (3.5-5.0) g/dL Globulin 3.8 (1.7-4.1) g/dL Albumin/Globulin Ratio 1.1 (1.0-2.8) Procalcitonin (<0.5) ng/mL Urine Color Urine Appearance Urine pH (4.5-8.0) Ur Specific [place] (1.000-1.035) Urine Protein (Negative) Urine Glucose (UA) (Negative) g/dL Urine Ketones (NEGATIVE) Urine Occult Blood (Negative) Urine Nitrate (Negative) Urine Bilirubin (NEGATIVE) Urine Urobilinogen (0.2) E.U./dL Ur Leukocyte Esterase (NEGATIVE) Urine RBC (0-5/HPF) Urine WBC (0-5/HPF) Ur Squamous Epith Cells (0-5/HPF) Urine Bacteria (None) Ur Culture Indicated? 09/20/19 09/20/19 09/21/19 Range/Units 13:42 15:15 04:45 WBC 5.6 (4.5-11.0) X10^3/uL RBC 3.60 L (4.5-5.9) X10^6/uL Hgb 11.5 L (13.5-17.5) g/dL Hct 32.2 L (41-53) % MCV 89.6 (80-100) fL MCH 32.1 (26-34) PG MCHC 35.8 (30-36) % RDW 13.3 (11.6-14.8) % Plt Count 253 (150-400) X10^3/uL Neut % (Auto) 54.1 (50-75) % Lymph % (Auto) 29.8 (25-40) % [place] % (Auto) 11.9 (3-14) % Eos % (Auto) 3.0 (2-4) % Baso % (Auto) 1.2 (0-2) % Neut # (Auto) 3000 (5989-0920) /uL Lymph # (Auto) 1700 (2724-2161) /uL [place] # (Auto) 700 (0-900) /uL Eos # (Auto) 200 (0-450) /uL Baso # (Auto) 100 (0-100) /uL ESR (0-15) MM/HR Sodium (137-145) mmol/L Potassium (3.4-5.1) mmol/L Chloride (98-107) mmol/L Carbon Dioxide (22-32) mmol/L BUN (9-20) mg/dL Creatinine (0.66-1.25) mg/dL Estimated GFR (>60) mL/min BUN/Creatinine Ratio (6-22) Glucose (80-110) mg/dL Lactate (0.7-2.1) mmol/L Uric Acid (3.5-8.5) mg/dL Calcium (8.4-10.2) mg/dL Magnesium 2.1 (1.6-2.3) mg/dL Total Bilirubin (0.2-1.3) mg/dL AST (17-59) IU/L ALT (<50) IU/L Alkaline Phosphatase (38-126) U/L C-Reactive Protein (<1.0) mg/dL Total Protein (6.3-8.2) g/dL Albumin (3.5-5.0) g/dL Globulin (1.7-4.1) g/dL Albumin/Globulin Ratio (1.0-2.8) Procalcitonin < 0.05 (<0.5) ng/mL Urine Color Urine Appearance Urine pH (4.5-8.0) Ur Specific [place] (1.000-1.035) Urine Protein (Negative) Urine Glucose (UA) (Negative) g/dL Urine Ketones (NEGATIVE) Urine Occult Blood (Negative) Urine Nitrate (Negative) Urine Bilirubin (NEGATIVE) Urine Urobilinogen (0.2) E.U./dL Ur Leukocyte Esterase (NEGATIVE) Urine RBC (0-5/HPF) Urine WBC (0-5/HPF) Ur Squamous Epith Cells (0-5/HPF) Urine Bacteria (None) Ur Culture Indicated? 09/21/19 09/21/19 09/22/19 Range/Units 04:45 05:00 05:26 WBC 11.5 H D (4.5-11.0) X10^3/uL RBC 4.18 L (4.5-5.9) X10^6/uL Hgb 13.1 L (13.5-17.5) g/dL Hct 38.3 L (41-53) % MCV 91.6 (80-100) fL MCH 31.3 (26-34) PG MCHC 34.2 (30-36) % RDW 13.3 (11.6-14.8) % Plt Count 331 (150-400) X10^3/uL Neut % (Auto) 82.6 H D (50-75) % Lymph % (Auto) 10.0 L (25-40) % [place] % (Auto) 6.0 (3-14) % Eos % (Auto) 1.2 L (2-4) % Baso % (Auto) 0.2 (0-2) % Neut # (Auto) 9500 H (6210-7703) /uL Lymph # (Auto) 1200 (7375-1370) /uL [place] # (Auto) 700 (0-900) /uL Eos # (Auto) 100 (0-450) /uL Baso # (Auto) 0 (0-100) /uL ESR (0-15) MM/HR Sodium 130 L (137-145) mmol/L Potassium 4.0 (3.4-5.1) mmol/L Chloride 97 L (98-107) mmol/L Carbon Dioxide 25 (22-32) mmol/L BUN 13 (9-20) mg/dL Creatinine 0.74 (0.66-1.25) mg/dL Estimated GFR > 60.0 (>60) mL/min BUN/Creatinine Ratio 17.6 (6-22) Glucose 96 (80-110) mg/dL Lactate (0.7-2.1) mmol/L Uric Acid (3.5-8.5) mg/dL Calcium 9.0 (8.4-10.2) mg/dL Magnesium (1.6-2.3) mg/dL Total Bilirubin (0.2-1.3) mg/dL AST (17-59) IU/L ALT (<50) IU/L Alkaline Phosphatase (38-126) U/L C-Reactive Protein (<1.0) mg/dL Total Protein (6.3-8.2) g/dL Albumin (3.5-5.0) g/dL Globulin (1.7-4.1) g/dL Albumin/Globulin Ratio (1.0-2.8) Procalcitonin (<0.5) ng/mL Urine Color Yellow Urine Appearance Clear Urine pH 6.5 (4.5-8.0) Ur Specific [place] <=1.005 (1.000-1.035) Urine Protein Negative (Negative) Urine Glucose (UA) Negative (Negative) g/dL Urine Ketones Negative (NEGATIVE) Urine Occult Blood Negative (Negative) Urine Nitrate Negative (Negative) Urine Bilirubin Negative (NEGATIVE) Urine Urobilinogen 0.2 (0.2) E.U./dL Ur Leukocyte Esterase Negative (NEGATIVE) Urine RBC 0-1/hpf (0-5/HPF) Urine WBC 0-1/hpf (0-5/HPF) Ur Squamous Epith Cells 0-1 /hpf (0-5/HPF) Urine Bacteria None seen (None) Ur Culture Indicated? Cult not indicated 09/22/19 09/22/19 09/22/19 Range/Units 05:26 05:26 05:26 WBC (4.5-11.0) X10^3/uL RBC (4.5-5.9) X10^6/uL Hgb (13.5-17.5) g/dL Hct (41-53) % MCV (80-100) fL MCH (26-34) PG MCHC (30-36) % RDW (11.6-14.8) % Plt Count (150-400) X10^3/uL Neut % (Auto) (50-75) % Lymph % (Auto) (25-40) % [place] % (Auto) (3-14) % Eos % (Auto) (2-4) % Baso % (Auto) (0-2) % Neut # (Auto) (8201-3364) /uL Lymph # (Auto) (9423-6145) /uL [place] # (Auto) (0-900) /uL Eos # (Auto) (0-450) /uL Baso # (Auto) (0-100) /uL ESR (0-15) MM/HR Sodium 129 L (137-145) mmol/L Potassium 4.4 (3.4-5.1) mmol/L Chloride 92 L (98-107) mmol/L Carbon Dioxide 28 (22-32) mmol/L BUN 22 H (9-20) mg/dL Creatinine 1.08 (0.66-1.25) mg/dL Estimated GFR > 60.0 (>60) mL/min BUN/Creatinine Ratio 20.4 (6-22) Glucose 97 (80-110) mg/dL Lactate (0.7-2.1) mmol/L Uric Acid 5.6 (3.5-8.5) mg/dL Calcium 9.9 (8.4-10.2) mg/dL Magnesium (1.6-2.3) mg/dL Total Bilirubin (0.2-1.3) mg/dL AST (17-59) IU/L ALT (<50) IU/L Alkaline Phosphatase (38-126) U/L C-Reactive Protein 16.0 H (<1.0) mg/dL Total Protein (6.3-8.2) g/dL Albumin (3.5-5.0) g/dL Globulin (1.7-4.1) g/dL Albumin/Globulin Ratio (1.0-2.8) Procalcitonin < 0.05 (<0.5) ng/mL Urine Color Urine Appearance Urine pH (4.5-8.0) Ur Specific [place] (1.000-1.035) Urine Protein (Negative) Urine Glucose (UA) (Negative) g/dL Urine Ketones (NEGATIVE) Urine Occult Blood (Negative) Urine Nitrate (Negative) Urine Bilirubin (NEGATIVE) Urine Urobilinogen (0.2) E.U./dL Ur Leukocyte Esterase (NEGATIVE) Urine RBC (0-5/HPF) Urine WBC (0-5/HPF) Ur Squamous Epith Cells (0-5/HPF) Urine Bacteria (None) Ur Culture Indicated? Imaging Data Extremity x-ray #1: Radiologist's Impression: [address] [address] XRay Report Signed Patient: Devonte Larson PMR#: [id number] : 1950Acct:[id number] Age/Sex: 69 / MDate of Service: 09/20/19 Loc: ED Accession Number: [id number] Procedure: XR foot LT min 3V Ordering Provider: Flor Mujica PROCEDURE: XR FOOT LT MIN 3V INDICATIONS: Midfoot pain, history of falls. TECHNIQUE: 3 views of the foot were acquired. COMPARISON: None. FINDINGS: Bones: No fractures or dislocations. No suspicious bony lesions. 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 Soft tissues: No tibiotalar joint effusion. Achilles tendon appears normal. IMPRESSION: Mild midfoot arthritis, first MTP degenerative arthritis. Dictated by: Jarrett Rosales M.D. on 09/20/2019 at 12:53 Approved by: Jarrett Rosales M.D. on 09/20/2019 at 13:01 Extremity x-ray #2: Radiologist's Impression: [address] [address] XRay Report Signed Patient: Devonte Larson PMR#: [id number] : 1950Acct:[id number] Age/Sex: 69 / MDate of Service: 09/20/19 Loc: ED Accession Number: [id number] Procedure: XR ankle LT min 3V Ordering Provider: Flor Mujica PROCEDURE: XR ANKLE LT MIN 3V INDICATIONS: Lateral malleolus pain, history of falls TECHNIQUE: 3 views of the ankle were acquired. COMPARISON: None. FINDINGS: Bones: No fractures or dislocations. Ankle mortise is normally aligned. No suspicious bony lesions. There is degenerative arthritis involving the tibiotalar joint, likely posttraumatic. Soft tissues: There is a tibiotalar joint effusion. Achilles tendon appears normal. IMPRESSION: Degenerative arthritis of the tibiotalar joint, likely posttraumatic. Tibiotalar joint effusion. No evidence acute bony abnormality of the left ankle. If clinical suspicion and/or symptoms persist, further assessment with repeat plain films, or advanced imaging (e.g., CT, MRI, or bone scan) may be helpful for further assessment. Dictated by: Jarrett Rosales M.D. on 09/20/2019 at 12:52 Approved by: Jarrett Rosales M.D. on 09/20/2019 at 12:53 MDM Narrative Medical decision making narrative: 69yo male with a history of AFib, multiple staph infections, and previous admission for elbow cellulitis at [facility] on 07/14/2019, as well as a recent right extremity fracture from a recent fall, presents emergency department for a left sided ankle pain for the past 24 hours. Patient reports 2 mechanical falls approximately 2-3 days ago without ankle pain until today. Redness, swelling, and tenderness to left lateral malleolus present. X-ray negative for fractures, CT negative for osteomyelitis at this time or occult fractures. Patient failed PT ambulation trial. I suspect patient's symptoms are most likely caused by cellulitis due to appearance of left ankle, no acute reports of trauma, no fractures found on x-ray or CT. Due to patient's extensive history of staph infections that progressed quite quickly and recent admission in June, patient was given a dose of IV vancomycin. Patient's CRP an ESR were significantly elevated, less suspicion of sepsis due to lack of fever, tachycardia, and presence of normal white blood cell count. However, I do have increased suspicion for start of osteomyelitis despite negative CT and x-ray due to significant pain with ambulation, swelling, and history of quickly progressing infections. Differential also includes ankle sprain versus contusion (less likely due to lack of ecchymosis, and patient's history). Patient was admitted to Dr. Guzman for observation. Patient consented to admission, family made aware. <Serjio Palma MD - Last Filed: 09/29/19 07:55> Lab Data Labs: Lab Results 09/20/19 09/20/19 09/20/19 Range/Units 13:42 13:42 13:42 WBC 8.2 (4.5-11.0) X10^3/uL RBC 4.01 L (4.5-5.9) X10^6/uL Hgb 12.7 L (13.5-17.5) g/dL Hct 36.3 L (41-53) % MCV 90.5 (80-100) fL MCH 31.5 (26-34) PG MCHC 34.8 (30-36) % RDW 13.4 (11.6-14.8) % Plt Count 292 (150-400) X10^3/uL Neut % (Auto) 71.4 (50-75) % Lymph % (Auto) 16.8 L (25-40) % [place] % (Auto) 11.3 (3-14) % Eos % (Auto) 0.2 L (2-4) % Baso % (Auto) 0.3 (0-2) % Neut # (Auto) 5800 (0248-5924) /uL Lymph # (Auto) 1400 (7497-3769) /uL [place] # (Auto) 900 (0-900) /uL Eos # (Auto) 0 (0-450) /uL Baso # (Auto) 0 (0-100) /uL ESR 81 H (0-15) MM/HR Sodium 129 L (137-145) mmol/L Potassium 3.9 (3.4-5.1) mmol/L Chloride 91 L (98-107) mmol/L Carbon Dioxide 28 (22-32) mmol/L BUN 13 (9-20) mg/dL Creatinine 0.83 (0.66-1.25) mg/dL Estimated GFR > 60.0 (>60) mL/min BUN/Creatinine Ratio 15.7 (6-22) Glucose 159 H (80-110) mg/dL Lactate 1.8 (0.7-2.1) mmol/L Uric Acid 5.1 (3.5-8.5) mg/dL Calcium 9.3 (8.4-10.2) mg/dL Magnesium (1.6-2.3) mg/dL Total Bilirubin 1.1 (0.2-1.3) mg/dL AST 24 (17-59) IU/L ALT 16 (<50) IU/L Alkaline Phosphatase 101 (38-126) U/L C-Reactive Protein 15.1 H (<1.0) mg/dL Total Protein 8.0 (6.3-8.2) g/dL Albumin 4.2 (3.5-5.0) g/dL Globulin 3.8 (1.7-4.1) g/dL Albumin/Globulin Ratio 1.1 (1.0-2.8) Procalcitonin (<0.5) ng/mL Urine Color Urine Appearance Urine pH (4.5-8.0) Ur Specific [place] (1.000-1.035) Urine Protein (Negative) Urine Glucose (UA) (Negative) g/dL Urine Ketones (NEGATIVE) Urine Occult Blood (Negative) Urine Nitrate (Negative) Urine Bilirubin (NEGATIVE) Urine Urobilinogen (0.2) E.U./dL Ur Leukocyte Esterase (NEGATIVE) Urine RBC (0-5/HPF) Urine WBC (0-5/HPF) Ur Squamous Epith Cells (0-5/HPF) Urine Bacteria (None) Ur Culture Indicated? 09/20/19 09/20/19 09/21/19 Range/Units 13:42 15:15 04:45 WBC 5.6 (4.5-11.0) X10^3/uL RBC 3.60 L (4.5-5.9) X10^6/uL Hgb 11.5 L (13.5-17.5) g/dL Hct 32.2 L (41-53) % MCV 89.6 (80-100) fL MCH 32.1 (26-34) PG MCHC 35.8 (30-36) % RDW 13.3 (11.6-14.8) % Plt Count 253 (150-400) X10^3/uL Neut % (Auto) 54.1 (50-75) % Lymph % (Auto) 29.8 (25-40) % [place] % (Auto) 11.9 (3-14) % Eos % (Auto) 3.0 (2-4) % Baso % (Auto) 1.2 (0-2) % Neut # (Auto) 3000 (7152-0677) /uL Lymph # (Auto) 1700 (4902-0893) /uL [place] # (Auto) 700 (0-900) /uL Eos # (Auto) 200 (0-450) /uL Baso # (Auto) 100 (0-100) /uL ESR (0-15) MM/HR Sodium (137-145) mmol/L Potassium (3.4-5.1) mmol/L Chloride (98-107) mmol/L Carbon Dioxide (22-32) mmol/L BUN (9-20) mg/dL Creatinine (0.66-1.25) mg/dL Estimated GFR (>60) mL/min BUN/Creatinine Ratio (6-22) Glucose (80-110) mg/dL Lactate (0.7-2.1) mmol/L Uric Acid (3.5-8.5) mg/dL Calcium (8.4-10.2) mg/dL Magnesium 2.1 (1.6-2.3) mg/dL Total Bilirubin (0.2-1.3) mg/dL AST (17-59) IU/L ALT (<50) IU/L Alkaline Phosphatase (38-126) U/L C-Reactive Protein (<1.0) mg/dL Total Protein (6.3-8.2) g/dL Albumin (3.5-5.0) g/dL Globulin (1.7-4.1) g/dL Albumin/Globulin Ratio (1.0-2.8) Procalcitonin < 0.05 (<0.5) ng/mL Urine Color Urine Appearance Urine pH (4.5-8.0) Ur Specific [place] (1.000-1.035) Urine Protein (Negative) Urine Glucose (UA) (Negative) g/dL Urine Ketones (NEGATIVE) Urine Occult Blood (Negative) Urine Nitrate (Negative) Urine Bilirubin (NEGATIVE) Urine Urobilinogen (0.2) E.U./dL Ur Leukocyte Esterase (NEGATIVE) Urine RBC (0-5/HPF) Urine WBC (0-5/HPF) Ur Squamous Epith Cells (0-5/HPF) Urine Bacteria (None) Ur Culture Indicated? 09/21/19 09/21/19 09/22/19 Range/Units 04:45 05:00 05:26 WBC 11.5 H D (4.5-11.0) X10^3/uL RBC 4.18 L (4.5-5.9) X10^6/uL Hgb 13.1 L (13.5-17.5) g/dL Hct 38.3 L (41-53) % MCV 91.6 (80-100) fL MCH 31.3 (26-34) PG MCHC 34.2 (30-36) % RDW 13.3 (11.6-14.8) % Plt Count 331 (150-400) X10^3/uL Neut % (Auto) 82.6 H D (50-75) % Lymph % (Auto) 10.0 L (25-40) % [place] % (Auto) 6.0 (3-14) % Eos % (Auto) 1.2 L (2-4) % Baso % (Auto) 0.2 (0-2) % Neut # (Auto) 9500 H (2772-6132) /uL Lymph # (Auto) 1200 (9409-2857) /uL [place] # (Auto) 700 (0-900) /uL Eos # (Auto) 100 (0-450) /uL Baso # (Auto) 0 (0-100) /uL ESR (0-15) MM/HR Sodium 130 L (137-145) mmol/L Potassium 4.0 (3.4-5.1) mmol/L Chloride 97 L (98-107) mmol/L Carbon Dioxide 25 (22-32) mmol/L BUN 13 (9-20) mg/dL Creatinine 0.74 (0.66-1.25) mg/dL Estimated GFR > 60.0 (>60) mL/min BUN/Creatinine Ratio 17.6 (6-22) Glucose 96 (80-110) mg/dL Lactate (0.7-2.1) mmol/L Uric Acid (3.5-8.5) mg/dL Calcium 9.0 (8.4-10.2) mg/dL Magnesium (1.6-2.3) mg/dL Total Bilirubin (0.2-1.3) mg/dL AST (17-59) IU/L ALT (<50) IU/L Alkaline Phosphatase (38-126) U/L C-Reactive Protein (<1.0) mg/dL Total Protein (6.3-8.2) g/dL Albumin (3.5-5.0) g/dL Globulin (1.7-4.1) g/dL Albumin/Globulin Ratio (1.0-2.8) Procalcitonin (<0.5) ng/mL Urine Color Yellow Urine Appearance Clear Urine pH 6.5 (4.5-8.0) Ur Specific [place] <=1.005 (1.000-1.035) Urine Protein Negative (Negative) Urine Glucose (UA) Negative (Negative) g/dL Urine Ketones Negative (NEGATIVE) Urine Occult Blood Negative (Negative) Urine Nitrate Negative (Negative) Urine Bilirubin Negative (NEGATIVE) Urine Urobilinogen 0.2 (0.2) E.U./dL Ur Leukocyte Esterase Negative (NEGATIVE) Urine RBC 0-1/hpf (0-5/HPF) Urine WBC 0-1/hpf (0-5/HPF) Ur Squamous Epith Cells 0-1 /hpf (0-5/HPF) Urine Bacteria None seen (None) Ur Culture Indicated? Cult not indicated 09/22/19 09/22/19 09/22/19 Range/Units 05:26 05:26 05:26 WBC (4.5-11.0) X10^3/uL RBC (4.5-5.9) X10^6/uL Hgb (13.5-17.5) g/dL Hct (41-53) % MCV (80-100) fL MCH (26-34) PG MCHC (30-36) % RDW (11.6-14.8) % Plt Count (150-400) X10^3/uL Neut % (Auto) (50-75) % Lymph % (Auto) (25-40) % [place] % (Auto) (3-14) % Eos % (Auto) (2-4) % Baso % (Auto) (0-2) % Neut # (Auto) (3594-1190) /uL Lymph # (Auto) (8744-9343) /uL [place] # (Auto) (0-900) /uL Eos # (Auto) (0-450) /uL Baso # (Auto) (0-100) /uL ESR (0-15) MM/HR Sodium 129 L (137-145) mmol/L Potassium 4.4 (3.4-5.1) mmol/L Chloride 92 L (98-107) mmol/L Carbon Dioxide 28 (22-32) mmol/L BUN 22 H (9-20) mg/dL Creatinine 1.08 (0.66-1.25) mg/dL Estimated GFR > 60.0 (>60) mL/min BUN/Creatinine Ratio 20.4 (6-22) Glucose 97 (80-110) mg/dL Lactate (0.7-2.1) mmol/L Uric Acid 5.6 (3.5-8.5) mg/dL Calcium 9.9 (8.4-10.2) mg/dL Magnesium (1.6-2.3) mg/dL Total Bilirubin (0.2-1.3) mg/dL AST (17-59) IU/L ALT (<50) IU/L Alkaline Phosphatase (38-126) U/L C-Reactive Protein 16.0 H (<1.0) mg/dL Total Protein (6.3-8.2) g/dL Albumin (3.5-5.0) g/dL Globulin (1.7-4.1) g/dL Albumin/Globulin Ratio (1.0-2.8) Procalcitonin < 0.05 (<0.5) ng/mL Urine Color Urine Appearance Urine pH (4.5-8.0) Ur Specific [place] (1.000-1.035) Urine Protein (Negative) Urine Glucose (UA) (Negative) g/dL Urine Ketones (NEGATIVE) Urine Occult Blood (Negative) Urine Nitrate (Negative) Urine Bilirubin (NEGATIVE) Urine Urobilinogen (0.2) E.U./dL Ur Leukocyte Esterase (NEGATIVE) Urine RBC (0-5/HPF) Urine WBC (0-5/HPF) Ur Squamous Epith Cells (0-5/HPF) Urine Bacteria (None) Ur Culture Indicated? Discharge Plan Departure Patient Disposition: Home Clinical Impression: Cellulitis of left ankle, Gait instability, Frequent falls, Debility, unspecified Discharge Date/Time: 09/20/19 18:33 Admit Date/Time: 09/22/19 09:40 Admit Provider: Tanvi Guzman
[2019-09-20] MEDS: ACETAMINOPHEN 325 MG TABLET 650 MG PO (12:54)
[2019-09-20 14:16] LABS: Add Manual Diff / Slide Review NO; Basophils Absolute Auto 0 /uL (0-100); Basophils Percent Auto 0.3 % (0-2); Eosinophils Absolute Auto 0 /uL (0-450); Eosinophils Percent Auto 0.2 % (2-4); Hematocrit 36.3 % (41-53); Hemoglobin 12.7 g/dL (13.5-17.5); Lymphocytes Absolute Auto 1400 /uL (1100-4500); Lymphocytes Percent Auto 16.8 % (25-40); Mean Corpuscular HGB Conc 34.8 % (30-36); Mean Corpuscular Hemoglobin 31.5 PG (26-34); Mean Corpuscular Volume 90.5 fL (80-100); Monocytes Absolute Auto 900 /uL (0-900); Monocytes Percent Auto 11.3 % (3-14); Neutrophils Absolute Auto 5800 /uL (1500-7000); Neutrophils Percent Auto 71.4 % (50-75); Platelet Count 292 X10^3/uL (150-400); Red Blood Cell Count 4.01 X10^6/uL (4.5-5.9); Red Cell Distribution Width 13.4 % (11.6-14.8); White Blood Cell Count 8.2 X10^3/uL (4.5-11.0)
[2019-09-20 14:33] LABS: Erythrocyte Sedimentation Rate 81 MM/HR (0-15)
[2019-09-20 14:37] LABS: Lactate (Lactic Acid) 1.8 mmol/L (0.7-2.1)
[2019-09-20 14:39] LABS: Alanine Aminotransferase 16 IU/L (<50); Albumin 4.2 g/dL (3.5-5.0); Albumin Globulin Ratio 1.1 (1.0-2.8); Alkaline Phosphatase 101 U/L (38-126); Aspartate Aminotransferase 24 IU/L (17-59); BUN Creatinine Ratio 15.7 (6-22); Bilirubin Total 1.1 mg/dL (0.2-1.3); Blood Urea Nitrogen 13 mg/dL (9-20); Calcium 9.3 mg/dL (8.4-10.2); Carbon Dioxide 28 mmol/L (22-32); Chloride 91 mmol/L (98-107); Estimated Glomerular Filt Rate > 60.0 mL/min (>60); Globulin 3.8 g/dL (1.7-4.1); Glucose 159 mg/dL (80-110); HEMOLYSIS 20 (0-50); Potassium 3.9 mmol/L (3.4-5.1); Sodium 129 mmol/L (137-145); Uric Acid 5.1 mg/dL (3.5-8.5)
[2019-09-20 14:50] LABS: C-Reactive Protein Quant 15.1 mg/dL (<1.0)
[2019-09-20] MEDS: VANCOMYCIN 1,500 MG/300 ML FROZ.PIGGY 200 MG IV (15:18)
[2019-09-20] MEDS: SODIUM CHLORIDE 0.9% 1,000 ML 150 ML IV (15:18)
[2019-09-20 15:59] LABS: Procalcitonin < 0.05 ng/mL (<0.5)
[2019-09-20] MEDS: HYDROCODONE/ACET 5/325 TABLET 1 TAB PO ×2 (16:34→21:34)
--- NOTE | 2019-09-20 17:40 | DI.CT.S_ITS ---
PROCEDURE: CT LE LT W CON INDICATIONS: Ankle pain r/o osteomyelitis versus occult fracture TECHNIQUE: Noncontrast 1-1.5 mm axial sections acquired from above the tibiotalar joint to the bottom of the calcaneus, with coronal and sagittal reformats. COMPARISON: [facility], CR, XR FOOT LT MIN 3V, 09/20/2019, 12:16. [facility], CR, XR ANKLE LT MIN 3V, 09/20/2019, 12:16. FINDINGS: Image quality: Excellent. Bones: No acute fracture or dislocation. No osseous erosion identified. There is moderate degenerative change and well corticated ossicles about the ankle joint in keeping with prior traumatic injury. There is moderate degenerative change in the mid and forefoot. Hallux valgus deformity. Soft tissues: Soft tissue thickening at the lateral malleolus. Small tibiotalar joint effusion. Scattered atherosclerotic calcifications. Achilles tendon enthesophyte. Bunion formation. IMPRESSION: 1. No acute fracture or dislocation. Sequelae of prior injury and moderate degenerative change. 2. No focal areas of sclerosis or osseous erosion to suggest osteomyelitis. Mild tibiotalar joint effusion. Mild soft tissue thickening at the lateral malleolus. Consider MRI of the ankle or 3 phase bone scan could be performed to rule out osteomyelitis. 3. Hallux valgus deformity with bunion formation. Dictated by: Aidan Hernandez M.D. on 09/20/2019 at 18:15 Approved by: Aidan Hernandez M.D. on 09/20/2019 at 18:25
--- NOTE | 2019-09-20 18:51 | PT.IIE ---
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 He has a right foot drop from a previous spine infection years ago. He has been using a care to walk but doesn't always use it in the house. Pt slipped a few days ago and fell in his bathroom. He began reporting left sided ankle pain today and had difficulty placing weight through his left ankle. Social History Household Members spouse Living Arrangements House Number of Stairs To Enter/Railing? 2 Home Equipment Straight Cane M2 PT-IP Current Condition Start: 09/20/19 18:25 Freq: NEEDED Status: Active Protocol: Document 09/20/19 18:28 [facility] (Rec: 09/20/19 18:51 [facility] [id number]) Physical Therapy Current Condition Current Condition Evaluation Date 09/20/19 Treatment Diagnosis left swollen foot, evaluate for safety with ambulation with crutches Precautions Other Precautions hx of right wrist fracture in cast and non weight bearing, right foot drop Weight Bearing Status Weight Bearing Status Full Weight Bearing M3 PT-IP Subjective Start: 09/20/19 18:25 Freq: NEEDED Status: Active Protocol: Document 09/20/19 18:28 [facility] (Rec: 09/20/19 18:51 [facility] [id number]) Subjective Physical Therapy Visit Type Type Initial Evaluation Visit Start Time 16:45 Visit Stop Time 17:05 Total Visit Minutes 20 Notes PT called to consult for safety evaluation with crutches Physical Therapy Visit Comments Patient Comments The patient reports he is unable to use his right thumb at all due to cast, he reports he is non weight wearing through his right wrist. He is eager to attempt waking with a crutch. Patient Goals The patient would like to return home with a crutch Therapy Pain Assessment Pain Present Pain Present Pain Reported Location Left Foot Intensity 5 Scale Used Numeric (1 - 10) M4 PT-IP Mobility and Gait Start: 09/20/19 18:25 Freq: NEEDED Status: Active Protocol: Document 09/20/19 18:28 [facility] (Rec: 09/20/19 18:51 [facility] [id number]) PT-Bed Mobility Assessment Rolling Type of Rolling Roll to Left Level of Assist Standby Assistance Supine to Sit Supine to Sit Contact Guard Assistance Scooting Scooting to Edge of Bed Contact Guard Assistance PT-Transfer Assessment Sit to and From Stand Sit to and from Stand Minimal Assistance Equipment Transfer Assistive Device Gait Belt Orthotic/Prosthetic Devices or Brace: Yes Gait Assessment Gait Gait Assistance Required: Maximum Assistance Distance (Feet) 15 Assistive Devices Assistive Device Gait Belt,Axillary Crutches Factors Limiting Gait Function Factors Limiting Gait Function Decreased Activity Tolerance, Decreased Strength,Limited Range of Motion,Pain,Poor Balance,Poor Safety Awareness Comments Gait Comments The patient is unable to use a walker due to restricted used and non WB right UE. A axillary crutch was used on the left side for gait. The patient ambulated around room with max A to keep from falling. He stated that his ankle felt a little better the more he walked on it. Gait was attempted again without the crutch. Due to the weakness in his right foot and the pain in his left he was still max A and lost balance a few times in his attempt to walk. The patient is a high fall risk at this time and not safe to ambulate. PT-Balance Assessment Standing Balance and Reactions Static Standing Balance Ability Fair Dynamic Standing Balance Ability Fair M5 PT-IP Objective Assessments Start: 09/20/19 18:25 Freq: NEEDED Status: Active Protocol: Document 09/20/19 18:28 [facility] (Rec: 09/20/19 18:51 [facility] [id number]) Orientation Orientation/Cognition Level of Alertness Alert Safety Awareness Decreased Safety Awareness Memory Description No Deficits Noted Gross Range of Motion Upper Extremity ROM Assessment Right Impaired Impairments right wrist fx with non weight bearing precautions Lower Extremity ROM Assessment Bilaterally Impaired Impairments history of right sided foot drop, left ankle pain with ROM all directions Strength Upper Extremity Strength Assessment Right Impaired Wrist right wrist fx Lower Extremity Strength Assessment Bilaterally Impaired Ankle left ankle 3/5 with pain, right ankle foot drop Comments Strength Comments pt has pain with weight bearing left LE, able to weight bear on the right but does not have a AFO to assist with right foot drop. Coordination Assessment Gross Coordination Gross Coordination WNL Sensation Assessment Sensation Gross Sensation WNL Muscle Tone Muscle Tone WNL Yes M7 PT-IP Assessment and Plan Start: 09/20/19 18:25 Freq: NEEDED Status: Active Protocol: Document 09/20/19 18:28 [facility] (Rec: 09/20/19 18:51 [facility] [id number]) PT Summary Assessment and Plan Potential Rehabilitation Potential Good Status of Condition at Evaluation Evolving Summary Impairments Pain,ROM,Strength,Balance, Activity Tolerance Assessment Summary 69 year old male with history of right sided foot drop from a spinal infection years ago, he has a right wrist fracture in a cast and is non WB through the right LE. He has a history of falls and daughter is present to report he has had falls at home. He fell a few days ago in his bathroom. He denies having ankle pain at the time but today the left ankle started hurting and pain increases with weight bearing. PT was called to consult safety of ambulation with crutches. With examination it was found that the patient required max A to ambulate with one crutch under his left arm. He lost his balance many times with ambulation in room and in hallway. He is unable to use 2 crutches due to wrist fx. He is unsafe to ambulate at this time. Goals Transfer Goal Minimal Assistance Gait Goal Moderate Assistance Other Goals Family is able to participate in medicare sales representative training to safely transfer pt home Days to Meet Goals 5 Frequency of Treatment Frequency Of Treatment Once a Day Treatment Plan Physical Therapy Treatment Plan Transfer Training,Gait Training Discharge Recommendations Other Discharge Recommendations needs further assessment
[2019-09-20 20:34] LABS: Magnesium 2.1 mg/dL (1.6-2.3)
--- NOTE | 2019-09-20 21:23 | PM.HP.1 ---
History of Present Illness History of Present Illness Date Patient Seen: 09/20/19 Time Patient Seen: 21:23 Chief complaint: left foot swollen x2days Narrative: Mr. Devonte Larson is a 69-year-old male with a past medical history significant for atrial fibrillation with long-term anticoagulation on Xarelto, history of spinal infection developing neurogenic bladder and right footdrop who presents to the ER with left ankle pain and swelling. The patient sustained a fall 5 days ago on 09/15/2019 which she describes as a trip and fall catching his toe and falling forward. He was evaluated in the ER and found to have a right wrist fracture and sustained abrasions to his chin and right face. He was treated and discharged home. Patient again 2 days ago which was a slip and fall the bathroom which he was able get up by himself reportedly sustained no injury. The patient developed left ankle swelling 1 day ago with increasing pain and inability to bear weight. Family at bedside also reports that the patient had low-grade temperature at home prior to presenting to the ER. Patient reports the pain is worsened with ambulation and palpation. Reports no other complaints of recent illness, no chills, nasal congestion or sore throat. He denies complaints of chest pain and has palpitation with a history of atrial fibrillation. He denies shortness of breath cough or wheezing. Has no abdominal pain, heartburn, nausea vomiting. He reports no diarrhea or constipation. He has a history of neurogenic bladder and was self catheterizing in the past but no longer needs to. Patient has a cast on the right are and at baseline the patient ambulates with a cane but has sustained frequent falls. Upon arrival to the ER the patient has a temperature of 98.9?, heart rate of 87, blood pressure 131/87, respiratory rate of 15 as an oxygen saturation 97% on room air. Imaging is obtained of the left ankle finding degenerative arthritis of the tibiotalar joint, likely posttraumatic, tibiotalar joint effusion, midfoot arthritis. CT of the left ankle is obtained to assess for osteomyelitis finding No focal areas of sclerosis or osseous erosion to suggest osteomyelitis, mild tibiotalar joint effusion, mild soft tissue thickening at the lateral malleolus, with recommendation for MRI to rule out osteomyelitis. Laboratory analysis finds a white count of 8.2, hemoglobin of 12.7, hematocrit of 36.3, platelets of 292. Electrolytes are within normal limits with potassium of 3.9 magnesium of 2.1. A BUN of 13 and creatinine 0.883. Nonfasting glucose is 159. Liver functions are all within normal range. Uric acid is 5.1, lactic acid is 1.8 ESR is 81 and CRP 15.1. Procalcitonin is less than 0.05. The patient is admitted to the medicine service for frequent falls and cellulitis left ankle. 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) Neurogenic bladder (Acute) Restless leg syndrome (Acute) Surgical History (Updated 09/21/19 @ 09:05 by JULIUS Dupont) History of spinal surgery (Acute) Family & Social History Family History (Updated 09/21/19 @ 09:06 by JULIUS Dupont) Father Stroke Mother Diabetes mellitus Brother Diabetes mellitus Social History: household members spouse Prior Living Arrangements House Safety & Behavioral: Feels Safe in Current Yes Environment Been Physically Hurt or No Threatened By a Person Suicidal Ideation Description None Suicide Plan Description No Plan Tobacco & Substance use: Smoking Status Former smoker alcohol intake current alcohol intake frequency holiday/special occasion Substance Use Type does not use Meds Home Medications and Allergies Home Medications Medication Instructions Recorded Confirmed Type melatonin 10 mg PO HS #0 06/02/17 09/20/19 History trazodone 100 mg PO BEDTIME #0 06/02/17 09/20/19 History rivaroxaban [Xarelto] 20 mg PO DAILY 09/15/19 09/20/19 History Alfuzosine 10 mg PO DAILY 09/20/19 09/20/19 History cyclobenzaprine 10 mg PO TID PRN 09/20/19 09/20/19 History famotidine 20 mg PO DAILY 09/20/19 09/20/19 History furosemide 20 mg PO DAILY 09/20/19 09/20/19 History hydrocodone-acetaminophen 1 tab PO Q6H PRN 09/20/19 09/20/19 History lisinopril 2.5 mg PO DAILY 09/20/19 09/20/19 History metoclopramide HCl [Reglan] 5 mg PO TID 09/20/19 09/20/19 History metoprolol succinate 25 mg PO BID 09/20/19 09/20/19 History omeprazole 40 mg PO DAILY 09/20/19 09/20/19 History oxybutynin chloride 10 mg PO DAILY 09/20/19 09/20/19 History pramipexole 0.25 mg PO DAILY 09/20/19 09/20/19 History spironolactone 25 mg PO DAILY 09/20/19 09/20/19 History Allergies Allergy/AdvReac Type Severity Reaction Status Date / Time methadone [METHADONE] Allergy Unknown Verified 09/20/19 12:19 Review of Systems Review of Systems ROS: Yes All systems reviewed with the patient and are negative except as otherwise documented Exam Vital Signs (past 8 hours): - 09/20/19 14:16 09/20/19 15:27 09/20/19 16:56 Temperature Pulse Rate 93 H 94 H 93 H Respiratory Rate 19 18 16 Blood Pressure Blood Pressure [Left Arm] 116/67 111/62 Blood Pressure [Right Arm] 120/74 Pulse Oximetry 98 100 98 09/20/19 18:34 09/20/19 19:41 Temperature 98.1 F Pulse Rate 92 H 88 Respiratory Rate 17 18 Blood Pressure 129/79 Blood Pressure [Left Arm] 111/70 Blood Pressure [Right Arm] Pulse Oximetry 98 100 Oxygen Delivery Method Room Air Narrative Exam Narrative: GENERAL APPEARANCE: well developed, well nourished, in no acute distress. HEENT: Abrasion right zygoma, abrasion chin, PERRLA, conjunctiva clear, EOMs intact without nystagmus, no sinus tenderness to percussion, no epistaxis or rhinorrhea, mucous membranes are moist and pink without lesions or exudate. NECK/THYROID: neck supple, nontender to palpation, no step-offs, no JVD, no carotid bruit, trachea midline. LYMPH NODES: no cervical or supraclavicular lymphadenopathy. SKIN: [place], warm and dry. Redness warmth and swelling left ankle. HEART: Irregularly irregular rhythm, S1-S2, no murmur, no rubs or gallops, brisk capillary refill, no edema LUNGS: clear to auscultation bilaterally, no coarseness crackles or wheezing, no cough present CHEST: Symmetrical movement, no accessory muscle use, good tidal volume, no pain on AP or lateral compression. ABDOMEN: Soft, no distention, no abdominal tenderness, no organomegaly, no flank or suprapubic tenderness, active bowel tones. BACK: Normal curvature, nontender to palpation, no CVA tenderness on percussion EXTREMITIES: Cast on right forearm, pain, redness, warmth and swelling left ankle from forefoot to the distal 3rd of the lower leg, left leg strength is 5/5, right leg 4/5 with no dorsiflexion. NEUROLOGIC: AAO x 3, weakness right lower extremity, cranial nerves II-XII grossly intact, sensation intact to light touch, hearing grossly normal to speech. PSYCH: cooperative, appropriate with stable behavior Objective Labs Result Diagrams: 09/21/19 04:45 09/21/19 04:45 Labs: Laboratory Results - last 24 hr 09/20/19 09/20/19 09/20/19 13:42 13:42 13:42 WBC 8.2 RBC 4.01 L Hgb 12.7 L Hct 36.3 L MCV 90.5 MCH 31.5 MCHC 34.8 RDW 13.4 Plt Count 292 Neut % (Auto) 71.4 Lymph % (Auto) 16.8 L [place] % (Auto) 11.3 Eos % (Auto) 0.2 L Baso % (Auto) 0.3 Neut # (Auto) 5800 Lymph # (Auto) 1400 [place] # (Auto) 900 Eos # (Auto) 0 Baso # (Auto) 0 ESR 81 H Sodium 129 L Potassium 3.9 Chloride 91 L Carbon Dioxide 28 BUN 13 Creatinine 0.83 Estimated GFR > 60.0 BUN/Creatinine Ratio 15.7 Glucose 159 H Lactate 1.8 Uric Acid 5.1 Calcium 9.3 Magnesium Total Bilirubin 1.1 AST 24 ALT 16 Alkaline Phosphatase 101 C-Reactive Protein 15.1 H Total Protein 8.0 Albumin 4.2 Globulin 3.8 Albumin/Globulin Ratio 1.1 Procalcitonin 09/20/19 09/20/19 13:42 15:15 WBC RBC Hgb Hct MCV MCH MCHC RDW Plt Count Neut % (Auto) Lymph % (Auto) [place] % (Auto) Eos % (Auto) Baso % (Auto) Neut # (Auto) Lymph # (Auto) [place] # (Auto) Eos # (Auto) Baso # (Auto) ESR Sodium Potassium Chloride Carbon Dioxide BUN Creatinine Estimated GFR BUN/Creatinine Ratio Glucose Lactate Uric Acid Calcium Magnesium 2.1 Total Bilirubin AST ALT Alkaline Phosphatase C-Reactive Protein Total Protein Albumin Globulin Albumin/Globulin Ratio Procalcitonin < 0.05 Assessment & Plan Assessment & Plan narrative: This is a 69-year-old male patient who has sustained multiple falls. He for all fracturing his arm 5 days ago and fell again after which the following day he developed left ankle pain swelling and redness. 1. Cellulitis left ankle, present on admission, active -patient sustained a fall the day before she ankle swelling started. -stay CT of the ankle finds talofibular joint effusion but no fractures or dislocations. On exam insufficient fluid accumulation to be tapped. -there is redness and swelling from the forefoot to the distal 3rd of lower extremity that is warm to the touch most prominent around the lateral malleolus of the left ankle and is tender to palpation. -patient with history of staph infections and started on doxycycline 100 mg IV twice daily to include MRSA coverage. 2. Frequent falls, gait instability secondary to right leg weakness and footdrop, present on admission, active. -patient endorses history of frequent falls having had 2 falls in the last 5 days. Both episodes are described as tripping. -patient uses a cane to ambulate typically in the right hand with right leg weakness, he seldom uses his AFO brace. -physical and occupational therapy to consult evaluate and treat. 3. Atrial fibrillation, probable chronic, present on admission, stable. -Twelve lead EKG obtained on 09/15/2019 finds patient atrial fibrillation with a ventricular rate of 82. -electrolytes are within normal range with a magnesium 2.1 and a potassium of 3.9. -will continue home regimen of metoprolol 25 mg twice daily for rate control. 4. Long-term anticoagulation, present on admission, stable. -Patient reports no abnormal bleeding or bruising and has no hemoptysis, hematemesis, hematochezia or melena. -Will continue rivaroxaban 20 mg daily. Isolation: None VTE prophylaxis: Patient is anticoagulated on rivaroxaban. IV fluid: Saline lock Diet: Heart healthy, low-sodium Code status: FULL CODE, the patient designates his Heather to be his surrogate decision maker. The patient is admitted to the hospital for frequent falls debility and cellulitis with IV antibiotic therapy. The patient mid as observation status with expected length of stay to be less than 2 midnights. COVID-19 COVID-19 status: Not tested Scores GCS Fidel coma scale eye opening: Spontaneous Fidel coma scale verbal response: Orientated [place] coma scale motor response: Obey commands [place] coma scale total score: 15 Quality VTE Deep Vein Thrombosis/Pulmonary Embolism Present on Admission: No
[2019-09-20] MEDS: HEPARIN 5,000 UNIT/ML VIAL 5000 UNIT SUBCUT (21:34)
[2019-09-20] MEDS: TRAZODONE 100 MG TABLET PO (22:11)
[2019-09-20] MEDS: CYCLOBENZAPRINE 10 MG TABLET PO (22:11)
[2019-09-20] MEDS: METOPROLOL ER 25 MG TABLET PO (22:12)
[2019-09-20] MEDS: DOCUSATE 100 MG CAPSULE PO (22:12)
[2019-09-20] MEDS: SODIUM CHLORIDE 0.9% FLUSH 10 ML IV (22:24)
--- NOTE | 2019-09-20 22:37 | PC.NURSE ---
Addendum entered by Melba Mccrary R.N. 09/20/19 23:29: Addendum late entry to original note: Pt admits to right hand pain. Original Note: Pt to room 223 from E.R. approximately 1900. Has difficulty ambulating from stretcher to bed on left LE. Cast in place to right wrist/forearm. Pt admits to left hand pain and left lateral ankle pain. Slight edema left ankle. Supported on pillows x 2. Elevated casted right arm on pillow. Daughter, Eda, accompanies pt to room 223 to assist in accurate healthy history. Hospitalist Ricardo has seen pt this evening shift and conversed with pt's daughter who has since left the building.
[2019-09-20] MEDS: DOXYCYCLINE 100 MG in SODIUM CHLORIDE 0.9% 100 ML IV (23:39)
[2019-09-20] MEDS: SODIUM CHLORIDE 0.9% 250 ML 21 ML IV (23:39)
[2019-09-21] VITALS (11 sets, daily range): BP systolic 96–115; BP diastolic 59–84; PULSE 83–110; RESP 16–20; TEMP 36.7–37.3; O2SAT 92–99
--- NOTE | 2019-09-21 02:15 | PC.NURSE ---
Addendum entered by Kristal Toscano R.N. 09/21/19 05:10: Up to bathroom with staff assist and voided; UA sent to lab. States pain in left ankle/right arm is 4/10; medicated with Vicodin (patient's choice). Original Note: Patient seen and assessed at 0040. Is alert and oriented. Breath sounds CTA with RA sat of 97%. HR irregular and has hx of afib; on telemetry with reading of afib CVR. Denies nausea. BT present and abdomen is soft; states he has had problems with constipation recently but last BM was yesterday. Voiding per urinal and denies dysuria but states he does experience urgency. Is able to turn himself in bed. 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 Now also having difficulty with walking related to left ankle being red and swollen. Has been experiencing frequent falls at home and noted to have bruising on chin, right upper cheek and left cheek. Stated pain was tolerable at 3/10 and declined offer of pain medication but does have leg elevated on pillows. Right arm in cast; fingers are warm and patient able to move all fingers except small finger. Fall risk score is high and bed alarm is activated.
[2019-09-21 04:57] LABS: Add Manual Diff / Slide Review NO; Basophils Absolute Auto 100 /uL (0-100); Basophils Percent Auto 1.2 % (0-2); Eosinophils Absolute Auto 200 /uL (0-450); Hematocrit 32.2 % (41-53); Hemoglobin 11.5 g/dL (13.5-17.5); Lymphocytes Absolute Auto 1700 /uL (1100-4500); Lymphocytes Percent Auto 29.8 % (25-40); Mean Corpuscular HGB Conc 35.8 % (30-36); Mean Corpuscular Hemoglobin 32.1 PG (26-34); Mean Corpuscular Volume 89.6 fL (80-100); Monocytes Absolute Auto 700 /uL (0-900); Monocytes Percent Auto 11.9 % (3-14); Neutrophils Absolute Auto 3000 /uL (1500-7000); Neutrophils Percent Auto 54.1 % (50-75); Platelet Count 253 X10^3/uL (150-400); Red Cell Distribution Width 13.3 % (11.6-14.8); White Blood Cell Count 5.6 X10^3/uL (4.5-11.0)
[2019-09-21 05:05] LABS: Bacteria Urine None Seen
[2019-09-21 05:06] LABS: Appearance Urine UA CLEAR; Bilirubin Urine UA NEGATIVE (NEGATIVE); Color Urine UA YELLOW; Glucose Urine UA NEGATIVE (Negative); Ketones Urine UA NEGATIVE (NEGATIVE); Leukocyte Esterase Urine UA NEGATIVE (NEGATIVE); Nitrite Urine UA NEGATIVE (Negative); Occult Blood Urine UA NEGATIVE (Negative); Protein Urine UA NEGATIVE (Negative); Specific Gravity Urine UA <=1.005 (1.000-1.035); Urobilinogen Urine UA 0.2 E.U./dL (0.2); pH Urine UA 6.5 (4.5-8.0)
[2019-09-21] MEDS: HYDROCODONE/ACET 5/325 TABLET 1 TAB PO ×4 (05:06→21:39)
[2019-09-21 05:08] LABS: BUN Creatinine Ratio 17.6 (6-22); Blood Urea Nitrogen 13 mg/dL (9-20); Carbon Dioxide 25 mmol/L (22-32); Chloride 97 mmol/L (98-107); Estimated Glomerular Filt Rate > 60.0 mL/min (>60); Glucose 96 mg/dL (80-110); HEMOLYSIS < 15 (0-50); Sodium 130 mmol/L (137-145)
[2019-09-21 05:12] LABS: Culture Indicated Urine Cult Not Indicated; RBC Urine 0-1/HPF (0-5/HPF); Squamous Epithelial Cell Urine 0-1 /HPF (0-5/HPF); WBC Urine 0-1/HPF (0-5/HPF)
[2019-09-21] MEDS: FUROSEMIDE 20 MG TABLET PO (09:25)
[2019-09-21] MEDS: FAMOTIDINE 20 MG TABLET PO (09:25)
[2019-09-21] MEDS: SPIRONOLACTONE 25 MG TABLET PO (09:25)
[2019-09-21] MEDS: lisinopriL 5 MG TABLET 2.5 MG PO (09:25)
[2019-09-21] MEDS: RIVAROXABAN 10 MG TABLET 20 MG PO (09:26)
[2019-09-21] MEDS: METOPROLOL ER 25 MG TABLET PO ×2 (09:26→19:33)
[2019-09-21] MEDS: OXYBUTYNIN 5 MG ER TAB 10 MG PO (09:26)
[2019-09-21] MEDS: PRAMIPEXOLE 0.25 MG TABLET PO (09:26)
[2019-09-21] MEDS: METOCLOPRAMIDE HCL 5 MG TABLET PO ×2 (09:27→16:42)
[2019-09-21] MEDS: SODIUM CHLORIDE 0.9% FLUSH 10 ML IV ×3 (09:27→21:39)
[2019-09-21] MEDS: DOCUSATE 100 MG CAPSULE PO (09:35)
[2019-09-21] MEDS: CYCLOBENZAPRINE 10 MG TABLET PO ×3 (09:35→21:40)
--- NOTE | 2019-09-21 11:22 | OT.IP.EVAL ---
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) Neurogenic bladder (Acute) Restless leg syndrome (Acute) Surgical History (Last Updated 09/21/19 @ 09:05 by JULIUS Dupont) History of spinal surgery (Acute) Occupational Therapy Inpatient Evaluation/Re-Eval M1 PT/OT-IP Prior Functional Status Start: 09/20/19 18:25 Freq: NEEDED Status: Active Protocol: Document 09/21/19 15:46 CGR (Rec: 09/21/19 16:08 CGR [email or web address]) Medical Review Prior Functional Status Medical History Reviewed Yes Communication pts daughter was present for consult today and reports her father has taken many falls at home Mobility and Gait the patient has a right wrist fracutre and is in a cast, he is non weight bearing through the right wrist. He has a right foot drop from a previous spine infection years ago. He has been using a care to walk but doesn't always use it in the house. Pt slipped a few days ago and fell in his bathroom. He began reporting left sided ankle pain today and had difficulty placing weight through his left ankle. Activities of Daily Living and IADL's Pt was IND with all ADLs Social History Household Members spouse Living Arrangements House Number of Floors (Floors) One Floor Number of Stairs To Enter/Railing? 3 steps with no rail. Home Environment Standard Height Toilet,High Toilet Home Equipment Front Wheel Walker,Straight Cane,Shower Seat with Backrest Employment Status Retired Additional Social History Comment Pt lives with his . Pt's daughter is a ESL INSTRUCTIONAL ASSISTANT at the hospital. M2 OT-IP Current Condition Start: 09/21/19 15:45 Freq: Status: Active Protocol: Document 09/21/19 15:46 CGR (Rec: 09/21/19 16:08 CGR [email or web address]) Occupational Therapy Current Condition Current Condition Evaluation Date 09/21/19 Treatment Diagnosis L ankle pain s/p fall. Diagnosis Onset Date 09/20/19 Post Operative Precautions Other Precautions Pt is NWB to the R wrist. Per MD, ok to weight bear through the forearm to use a platform walker. M3 OT- IP Subjective and Pain Start: 09/21/19 15:45 Freq: Status: Active Protocol: Document 09/21/19 15:46 CGR (Rec: 09/21/19 16:08 CGR [email or web address]) OT- Subjective Occupational Therapy Visit Type Type Initial Evaluation Visit Start Time 10:52 Visit Stop Time 11:22 Total Visit Minutes 30 Notes Partial co-treat with P.T. Occupational Therapy Visit Comments Patient/Caregiver Goals Pt's daughter states that pt's memory is not good. OT Pain Assessment Pain When Pain Assessed At Rest Pain Present Pain Present Pain Reported Location Right Arm Intensity 3 Scale Used Numeric (1 - 10) Management Techniques Modification of Treatment,Re- positioning,Timing of Activity with Medications M4 OT- IP ADL's Start: 09/21/19 15:45 Freq: Status: Active Protocol: Document 09/21/19 15:46 CGR (Rec: 09/21/19 16:08 CGR [email or web address]) OT [id number] Comments OT Self-Feeding Comments Not meal time OT ADL-Grooming Comments OT Grooming Comments not performed OT ADL-Oral Care Comments Oral Care Comments not performed OT ADL-Dressing General Eval Lower Body Dressing Ability Contact Guard Assistance Areas Needing Assistance Socks OT ADL-Toileting General Evaluation Toileting Ability Standby Assistance Devices Toileting Assistive Devices Grab Bars Comments OT Toileting Comments high toilet OT ADL-Bathing Comments OT Bathing Comments not performed M5 OT- IP IADL's Start: 09/21/19 15:45 Freq: Status: Active Protocol: Document 09/21/19 15:46 CGR (Rec: 09/21/19 16:08 CGR [email or web address]) OT-Instrumental Activities of Daily Living Deficits IADL Deficits Identified Deficits Home Safety Awareness Awareness of Need for Assistance at Home Good Awareness Ability to Problem Solve Emergency Able to Problem Solve Situations Medication Management Medication Management Caregiver Administers Money Management Money Management Caregiver Provides Assistance Meal Preparation Meal Preparation Caregiver Provides Assist Hem Inspector Hem Inspector Caregiver Provides Assist Driving Driving Comments 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 M6 OT- IP Functional Cognition Start: 09/21/19 15:45 Freq: Status: Active Protocol: Document 09/21/19 15:46 CGR (Rec: 09/21/19 16:08 CGR [email or web address]) Cognitive Factors Limiting Selfcare Function Cognitive Ability Level of Alertness Alert Patient Orientation Name,Age,Birthday,Month,Date, Year,Day of Week,Place, Situation Attention Span Ability Capable of Focused Attention, Capable of Sustained Attention Ability to Follow Commands Able to Follow Multi-Step Commands Memory Description No Deficits Noted Safety Awareness Underestimates Need for Assistance Cognitive Comments Cognitive Assessment Comments No memory defictis noted during session but per daughter pt has memory deficits. Will plan for cog testing tomorrow. OT- Vision and Hearing OT- Hearing Assessment OT- Hearing Assessment Hearing Impaired OT- Vision Assessment Visual Acuity Glasses For Reading Visual Attentiveness WFL Occular Pursuits WFL Visual Convergence WFL M7 OT- IP Mobility and Balance Start: 09/21/19 15:45 Freq: Status: Active Protocol: Document 09/21/19 15:46 CGR (Rec: 09/21/19 16:08 CGR [email or web address]) OT- Bed Mobility Assessment Supine to Sit Supine to Sit Assist Standby Assistance Sit to Supine Sit to Supine Assist Standby Assistance Scooting Scooting to Edge of Bed Standby Assistance OT-Transfer Assessment Sit to and From Stand Sit to and from Stand Contact Guard Assistance Transfers Transfer Ability Contact Guard Assistance, Moderate Assistance,1 Person Assistance Technique Transfer Destination Bed,Chair,Toilet Transfer Technique Stand Step Pivot Devices Transfer Assistive Devices Gait Belt,Front Wheeled Walker ,Platform Walker Comments Mobility Comments Pt mobilized in room with platform walker for the RUE and needed CGA for most transfers but mod a for sit to stand from toilet. OT- Gait Assessment Gait Gait Assistance Required: Contact Guard Assist Assistive Devices Assistive Device Gait Belt,Front Wheeled Walker ,Platform Walker OT- Balance Assessment Sitting Balance and Reactions Static Sitting Balance Ability Good Dynamic Sitting Balance Ability Fair M8 OT- IP Objective Assessments Start: 09/21/19 15:45 Freq: Status: Active Protocol: Document 09/21/19 15:46 CGR (Rec: 09/21/19 16:08 CGR [email or web address]) OT Gross Range of Motion Upper Extremity Range of Motion Assessment Right Impaired ROM Impairments R wrist in cast OT Strength Upper Extremity Strength Assessment Right Impaired OT- Coordination Assessment Upper Extremity Finger to Nose Test Within Functional Limits OT-Muscle Tone Assessment Muscle Tone WNL Yes OT Sensation Assessment Edema Edema Absent M9 OT- IP Assessment and Plan Start: 09/21/19 15:45 Freq: Status: Active Protocol: Document 09/21/19 15:46 CGR (Rec: 09/21/19 16:08 CGR [email or web address]) OT Summary Assessment and Plan Potential Rehabilitation Potential Good Analytic Complexity at Evaluation Moderate Summary OT Impairments Pain,Strength,Balance, Functional Cognition, Functional Mobility,Dressing, Toileting,Bathing,Toilet Transfers,Shower Transfers, Activity Tolerance Progress Towards Goals Slow Progress due to Pain,Slow Progress due to Activity Tolerance Assessment Summary Pt presents as a moderate complexity evaluation s/p fall at home. Pt now with R wrist fx in cast (from previous fall ) and L ankle pain and swelling. Pt is mobilizing better today with the platform walker but will have difficulty with LB dressing and bathing. Pt had difficulty with sit to stand from toilet . Discussed case with daughter who plans to get tub transfer bench and raised toilet seat with handles. Goals Grooming Goal Independent Dressing Goal Independent Toileting Goal Independent Bathing Goal Independent Toilet Transfer Goal Independent Shower Transfer Goal Independent,Tub Transfer Bench Days to Meet Goals 10 Frequency of Treatment Frequency Of Treatment Once a Day Treatment Plan OT Treatment Plan ADL Training,Functional Cognition Training,Functional Mobility,Patient/Family Education,Discharge Planning Other Treatment Recommendations and Next standing grooming, dressing, Treatment Focus shower Discharge Recommendations OT Discharge Recommendations SNF Rehab Other Discharge Recommendations SNF vs home with assit. Pt is a significant fall risk. Home Equipment Needs raised toilet seat with handles and tub transfer bench . Transportation Needs at Discharge Private Vehicle 11
--- NOTE | 2019-09-21 11:34 | PT.IPTN ---
Physical Therapy Treatment Note M2 PT-IP Current Condition Start: 09/20/19 18:25 Freq: NEEDED Status: Active Protocol: Document 09/20/19 18:28 AMH (Rec: 09/20/19 18:51 AMH [id number]) Physical Therapy Current Condition Current Condition Evaluation Date 09/20/19 Treatment Diagnosis left swollen foot, evaluate for safety with ambulation with crutches Precautions Other Precautions hx of right wrist fracture in cast and non weight bearing, right foot drop Weight Bearing Status Weight Bearing Status Full Weight Bearing M3 PT-IP Subjective Start: 09/20/19 18:25 Freq: NEEDED Status: Active Protocol: Document 09/21/19 10:54 SP (Rec: 09/21/19 15:06 SP [id number]) Subjective Physical Therapy Visit Type Type Treatment Note Visit Start Time 10:54 Visit Stop Time 11:34 Total Visit Minutes 40 Number of RETAIL LEADER Visits 1 Physical Therapy Visit Comments Patient Comments Pt was willing to work with PT , arrived during OT treatment. Patient Goals Cotreatment with OT. Therapy Pain Assessment Pain When Pain Assessed At Rest Pain Present Pain Present Pain Reported Location Right Arm Intensity 2 Scale Used 2/10 L foot at rest, 7-8/10 during WB gait Pain Management Techniques Re-positioning,Timing of Activity with Medications M4 PT-IP Mobility and Gait Start: 09/20/19 18:25 Freq: NEEDED Status: Active Protocol: Document 09/21/19 10:54 SP (Rec: 09/21/19 15:06 SP [id number]) PT-Bed Mobility Assessment Sit to Supine Sit to Supine Standby Assistance PT-Transfer Assessment Sit to and From Stand Sit to and from Stand Contact Guard Assistance, Minimal Assistance,Use of Upper Extremities Equipment Transfer Assistive Device Gait Belt,Platform Walker Orthotic/Prosthetic Devices or Brace: Yes Transfers Transfer Destination Bed,Chair,Toilet Transfer Technique Stand Step Pivot Transfer Ability Level of Assist Contact Guard Assistance,Use of Upper Extremities Comments Mobility Comments Pt was sitting in chair when arrived, in midst of OT treatment. Pt required CGA- Gisel to sit to stand from chair, cGA during gait using platform fWW, SBA sitting to supine. see assessment comments. Gait Assessment Gait Gait Assistance Required: Contact Guard Assist,Minimum Assistance Distance (Feet) 150 Able to Maintain Weight Bearing Status Yes During Gait Assistive Devices Assistive Device Gait Belt,Platform Walker Orthotic/Prosthetic Devices or Brace: Yes Gait Deviations General Gait Pattern Antalgic,Decreased Stride Length,Decreased Feet Clearance,Step-to Gait Factors Limiting Gait Function Factors Limiting Gait Function Decreased Activity Tolerance, Decreased Strength,Limited Range of Motion,Pain,Poor Balance,Poor Safety Awareness Comments Gait Comments See assessment comments. PT-Balance Assessment Sitting Balance and Reactions Static Sitting Balance Ability Normal Dynamic Sitting Balance Ability Good Standing Balance and Reactions Static Standing Balance Ability Fair Dynamic Standing Balance Ability Fair Device Used platform FWW M5 PT-IP Objective Assessments Start: 09/20/19 18:25 Freq: NEEDED Status: Active Protocol: Document 09/20/19 18:28 AMH (Rec: 09/20/19 18:51 AMH [id number]) Orientation Orientation/Cognition Level of Alertness Alert Safety Awareness Decreased Safety Awareness Memory Description No Deficits Noted Gross Range of Motion Upper Extremity ROM Assessment Right Impaired Impairments right wrist fx with non weight bearing precautions Lower Extremity ROM Assessment Bilaterally Impaired Impairments history of right sided foot drop, left ankle pain with ROM all directions Strength Upper Extremity Strength Assessment Right Impaired Wrist right wrist fx Lower Extremity Strength Assessment Bilaterally Impaired Ankle left ankle 3/5 with pain, right ankle foot drop Comments Strength Comments pt has pain with weight bearing left LE, able to weight bear on the right but does not have a AFO to assist with right foot drop. Coordination Assessment Gross Coordination Gross Coordination WNL Sensation Assessment Sensation Gross Sensation WNL Muscle Tone Muscle Tone WNL Yes M6 PT-IP Treatment Start: 09/20/19 18:25 Freq: NEEDED Status: Active Protocol: Document 09/21/19 10:54 SP (Rec: 09/21/19 15:06 SP [id number]) Physical Therapy Treatment Exercises Exercises Ankle Pumps,Heel Slides Education Education Provided Precautions,Safety M7 PT-IP Assessment and Plan Start: 09/20/19 18:25 Freq: NEEDED Status: Active Protocol: Document 09/21/19 10:54 SP (Rec: 09/21/19 15:06 SP [id number]) PT Summary Assessment and Plan Potential Rehabilitation Potential Good Status of Condition at Evaluation Evolving Summary Impairments Pain,ROM,Strength,Balance, Activity Tolerance Assessment Summary Provided and adjusted height of platform FWW (RUE support). Pt required Gisel to complete sit to stand from chair using LUE on chair arm and platform RUE to rest on for contact balance. Pt allowed to WB through R elbow (NWB through R wrist/hand) during mobility. Pt ambulated chair to bathroom toilet using platform FWW approx 8 ft, provided SBA for safety while OT gave support CGA and Min A for slow descent , cued for LUE reaching back and using on toilet for self guidence. Pt able to complete self hygiene, mod A to stand from low toilet provided by OT , RETAIL LEADER SBA. Pt requested to rest in chair after bathroom use. Pt was able to ambulate using platform FWW in hallway approx 150 ft with cuing for R knee flexion during RLE advancement to allow for increrased foot clearance with improvement as distance progressed, CGA. Pt stated experienced increased pain in L lateral foot during WB/gait but tolerable 7-8/10, 2/10 at rest end of tx. Pt requested to lay back down SBA sitting to supine end. Pt had all needs in reach before left. Pt is able to ambulate with nursing between PT treatments, per patient request. Goals Transfer Goal Minimal Assistance Gait Goal Moderate Assistance Other Goals Family is able to participate in care consultant training to safely transfer pt home Days to Meet Goals 5 Frequency of Treatment Frequency Of Treatment Once a Day Treatment Plan Physical Therapy Treatment Plan Transfer Training,Gait Training Other Recommendations and Next Treatment transfers, gait with LRAD, Focus assess stairs 3 platform steps to assimulate home enterance using SPC or platform FWW if requires more support. Recommendations To Nursing Amount of Assist Needed 1 Person Assist Discharge Recommendations PT Discharge Recommendations Home with Assistance,Home Health Other Discharge Recommendations caregiver training with daughter Equipment Needed for Home Before (R)Platform FWW if unable to Discharge ambulate with SPC as PLOF. Transportation Needs at Discharge Private Vehicle
[2019-09-21] MEDS: CEFTRIAXONE 2 GM/50 ML FROZ.PIGGY IV (12:01)
--- NOTE | 2019-09-21 12:50 | CM.DANOTE ---
Addendum entered by Annabel Christy LPN 09/21/19 13:13: Pt is currently on IV antibiotics for L foot cellulitis. His swollen foot has also impeded his functional mobility. Dr. Guzman this morning in Team Rounds did state that she thought he would be able to d/c on oral antibiotics once he is stable to d/c to the home setting. Original Note: Discharge Planning/Care Management DCP: assessment: Case received, EMR reviewed. Discussed in Team Rounds. Met then with pt who was just completing session with OT/PT. Introduced self and role. Pt is a 69 year old male who admitted yesterday evening to care of hospitalist team. PCP: Bindu Mancia Payer: [facility] out of [facility] (pt's spouse works) and Medicare A and B. Admission status: OBS: per [facility] BOONE Suero. Pt with history of falls and some debility from a prior spinal infection. Uses a cane prn. R foot drop. currently has a case on R wrist from a prior fall. Dr. Guzman has consulted informally with orthopedic: Dr. Cowan who has advised on needed DME. OT and PT are assisting to obtain this and teach pt how to use it. Pt's daughter Eda, a ARMED SECURITY OFFICER at on the acute care floor has been allowed to be at bedside part of the time because pt does reportedly have some short term memory deficits. Eda was not here during the therapy session and reports it is very likely he will not retain much of what was told or shown him by the therapists. She is here now in the hospital and is speaking with the therapy team now. OT/CJ, confirms she plans to do a SLUMS test as part of session tomorrow to look more deeply at cognitive status. PT/OT notes are not in yet. DCP team will be following. At very least would anticipate pt would benefit from HH services at d/c....DCP team will be following. CM Discharge Assessment Start: 09/21/19 12:47 Freq: Status: Active Protocol: Document 09/21/19 12:47 ITV (Rec: 09/21/19 12:49 ITV [id number]) Discharge Planning Assessment Advance Directives? Yes History Provided By Patient,Family Member,Medical Record Has Patient been admitted in last 30 No days? Prior Living Arrangements House Household Members spouse DME Already Rented / Owned Cane Comment AFO for long time R foot-drop, reportedly used rarely. Review Status In Process
[2019-09-21] MEDS: VANCOMYCIN 1,500 MG/300 ML FROZ.PIGGY 200 MG IV ×2 (12:55→23:59)
--- NOTE | 2019-09-21 14:42 | PC.NURSE ---
Safety: Pt reports pain in his back and in his rt wrist, recieved vicodin x2 and had relief of pain. Pt is very unsteady on feet, loses balance easily. Must have 1-2 people with him for safety. Rt arm is in a cast and this seems to leave him off balance, he does have foot drop to the rt side and then a cellulitis to the lt lateral malleolous. He can't recall injuring his lt lower leg. However does report he has fallen several times and he does have bruises to his face as well as abrasions. He has some light scattered bruises across body. He does limp with the lt lateral malleolous, it is painful. Discussed use of call light and use of same in the bathroom. If he takes a couple of steps and then stops he is safer than just trying to walk to the bathroom with out stopping, he can be seen visably weaving. Is is willing to go slowly. Cont w/poc.
--- NOTE | 2019-09-21 17:33 | PC.NURSE ---
Addendum entered by Melba Mccrary R.N. 09/22/19 00:01: Medicated for sleep and pain multiple sites 09/29. Bed alarm in place and reinforced to pt to call for needs and when desires/needs out of bed. Pt acknowledges agreement. Addendum entered by Melba Mccrary R.N. 09/21/19 20:05: Hospitalist Ricardo in to see patient. Addendum entered by Melba Mccrary R.N. 09/21/19 19:41: Pt moved from one recliner to one that has footrest for elevation of BL LE's. With standing only, SENIOR COMPLIANCE ANALYST Loraine reports pt's HR 150. BP taken and recorded with administered early metoprolol dose. Loraine reports pt's HR has been elevated one teens and greater. Pt now at rest in recliner with BL LE's elevated. Hospitalist Ricardo was informed of this scenario. Addendum entered by Melba Mccrary R.N. 09/21/19 18:04: C/o back pain re so much time in bed. Little if any relief from vicodin. Administered toradol as per emar. Pt set up for oral care as per request. Original Note: Pt assisted to stand at bedside with modified walker to utilize urinal for void. Requires assistance to move legs BL back into bed. Refuses offer to elevate LLE and right wrist. Right forearm cast in place with pt's use of exposed digits right hand. No neurovascular compromise noted to RUE/R hand.Pt reports greater pain today left ankle. Erythema and warmth to left lateral malleolus. Medicated for pain as per emar. Set up for evening meal by CLERK CASHIER. Bed alarm in place.
[2019-09-21] MEDS: KETOROLAC 15 MG/ML VIAL IV (17:52)
--- NOTE | 2019-09-21 19:50 | P.PN_ITS ---
Subjective Subjective Date Patient Seen: 09/21/19 Time Patient Seen: 19:32 Interval history: Mr. Devonte Larson is a 69-year-old male with a past medical history significant for atrial fibrillation with long-term anticoagulation on Xarelto, history of spinal infection developing neurogenic bladder and right footdrop who presents to the ER on 09/20/2019 with left ankle pain and swelling following multiple falls. The patient is assessed today sitting up in a recl iner with no new complaints stating he slept well last night. The patient was assessed by physical therapy today and ambulated 150 ft in the rockwell with a front wheel walker with right forearm platform. The patient experienced increased left ankle pain with ambulation to an 8/10 while ambulating to 2 out of rest. Patient continues to swelling of the joint but improvement in redness swelling. CT exam obtained admission identifies tibiotalar joint infusion which appears evident with surrounding swelling diminishing. Patient denies complaints chest pain the while ambulating his heart rate be to 120s and to 150s transiently. Patient is unaware of his cardiac irregularity and denies complaints of dizziness, chest pain or shortness of breath diaphoresis or nausea. Exam Vital Signs (past 8 hours): - 09/21/19 15:52 09/21/19 16:00 09/21/19 19:30 Temperature 99.1 F Pulse Rate 97 H 95 H Respiratory Rate 18 Blood Pressure 110/67 97/62 Pulse Oximetry 99 99 09/21/19 19:33 09/21/19 19:42 09/21/19 20:00 Temperature 98.3 F Pulse Rate 95 H 103 H Respiratory Rate 20 Blood Pressure 97/62 109/84 Pulse Oximetry 97 97 Oxygen Delivery Method Room Air Oxygen Flow Rate 0 Narrative Exam Narrative: GENERAL APPEARANCE: well developed, well nourished, sitting up in recliner in no acute distress. HEENT: Normocephalic, PERRLA. SKIN: [place], warm and dry, no visible lesions, rashes. HEART: Irregularly irregular rhythm, no peripheral edema 1+ dorsalis pedis pulses LUNGS: clear to auscultation bilaterally, no coarseness crackles or wheezing, no cough present CHEST: Symmetrical movement, no accessory muscle use, good tidal volume. ABDOMEN: Soft, no abdominal tenderness, active bowel tones.on EXTREMITIES: Decreased swelling redness and warmth left lower extremity, tenderness to palpation over lateral malleolus. NEUROLOGIC: AAO x3, no focal neurologic deficits, sensation intact to light touch, hearing grossly normal to speech. PSYCH: Good eye contact, cooperative, appropriate with stable behavior Objective Labs Result Diagrams: 09/21/19 04:45 09/21/19 04:45 Labs: Laboratory Results - last 24 hr 09/20/19 09/21/19 09/21/19 13:42 04:45 04:45 WBC 5.6 RBC 3.60 L Hgb 11.5 L Hct 32.2 L MCV 89.6 MCH 32.1 MCHC 35.8 RDW 13.3 Plt Count 253 Neut % (Auto) 54.1 Lymph % (Auto) 29.8 [place] % (Auto) 11.9 Eos % (Auto) 3.0 Baso % (Auto) 1.2 Neut # (Auto) 3000 Lymph # (Auto) 1700 [place] # (Auto) 700 Eos # (Auto) 200 Baso # (Auto) 100 Sodium 130 L Potassium 4.0 Chloride 97 L Carbon Dioxide 25 BUN 13 Creatinine 0.74 Estimated GFR > 60.0 BUN/Creatinine Ratio 17.6 Glucose 96 Calcium 9.0 Magnesium 2.1 Urine Color Urine Appearance Urine pH Ur Specific [place] Urine Protein Urine Glucose (UA) Urine Ketones Urine Occult Blood Urine Nitrate Urine Bilirubin Urine Urobilinogen Ur Leukocyte Esterase Urine RBC Urine WBC Ur Squamous Epith Cells Urine Bacteria Ur Culture Indicated? 09/21/19 05:00 WBC RBC Hgb Hct MCV MCH MCHC RDW Plt Count Neut % (Auto) Lymph % (Auto) [place] % (Auto) Eos % (Auto) Baso % (Auto) Neut # (Auto) Lymph # (Auto) [place] # (Auto) Eos # (Auto) Baso # (Auto) Sodium Potassium Chloride Carbon Dioxide BUN Creatinine Estimated GFR BUN/Creatinine Ratio Glucose Calcium Magnesium Urine Color Yellow Urine Appearance Clear Urine pH 6.5 Ur Specific [place] <=1.005 Urine Protein Negative Urine Glucose (UA) Negative Urine Ketones Negative Urine Occult Blood Negative Urine Nitrate Negative Urine Bilirubin Negative Urine Urobilinogen 0.2 Ur Leukocyte Esterase Negative Urine RBC 0-1/hpf Urine WBC 0-1/hpf Ur Squamous Epith Cells 0-1 /hpf Urine Bacteria None seen Ur Culture Indicated? Cult not indicated Assessment & Plan Assessment & Plan narrative: This is a 69-year-old male patient who has sustained multiple falls. He for all fracturing his arm 5 days ago and fell again after which the following day he developed left ankle pain swelling and redness. 1. Cellulitis left ankle, present on admission, active -patient sustained a fall the day before she ankle swelling started. -stay CT of the ankle finds talofibular joint effusion but no fractures or dislocations. On exam insufficient fluid accumulation to be tapped. -redness of the left lateral ankle is markedly improved, redness predominately over the lateral malleolus previously extending into foot and the distal 3rd of the lower leg, swelling is diminished the batch still operator to palpation. -antibiotics have been broadened to vancomycin and ceftriaxone. 2. Frequent falls, gait instability secondary to right leg weakness and héctor tdrop, present on admission, active. -patient endorses history of frequent falls having had 2 falls in the last 5 days. Both episodes are described as tripping. -patient uses a cane to ambulate typically in the right hand with right leg weakness, he seldom uses his AFO brace. -patient evaluated by physical therapy and ambulated the rock[place] using front wheel walker with right forearm platform. -current recommendations are discharged home with [facility] and home health 3. Atrial fibrillation, probable chronic, present on admission, stable. -Twelve lead EKG obtained on 09/15/2019 finds patient atrial fibrillation with a ventricular rate of 82. -electrolytes are within normal range with a potassium of 4 point. Will recheck magnesium.. -heart rate remains mildly elevated just over 100, blood pressure at 109/84, concern for hypertension with increase of medication. -will continue home regimen of metoprolol 25 mg twice daily for rate control. -encourage p.o. fluids 4. Long-term anticoagulation, present on admission, stable. -Patient reports no abnormal bleeding or bruising and has no hemoptysis, hematemesis, hematochezia or melena. -Will continue rivaroxaban 20 mg daily. 5. Tibiotalar joint effusion, present on admission, active -swelling reduced left ankle now present over lateral ankle though still not enough fluid to be tapped. -improving redness swelling and less warmth lessening concern for possibility of septic joint. -recommended continued elevation and ice. Isolation: None VTE prophylaxis: Patient is anticoagulated on rivaroxaban. IV fluid: Saline lock Diet: Heart healthy, low-sodium Disposition: Home in 1-2 days with home health per PT recommendation. Quality VTE Deep Vein Thrombosis/Pulmonary Embolism Present on Admission: No
[2019-09-21] MEDS: MELATONIN 3 MG TABLET 9 MG PO (21:39)
[2019-09-21] MEDS: TRAZODONE 100 MG TABLET PO (21:39)
[2019-09-22] VITALS (9 sets, daily range): BP systolic 98–143; BP diastolic 59–97; PULSE 77–169; RESP 16–24; TEMP 36.2–37.6; O2SAT 94–98; BMI 25.5
--- NOTE | 2019-09-22 04:44 | PC.NURSE ---
Addendum entered by Irene Mehta R.N. 09/22/19 05:12: HR down to 90-100's, HEALTH IT SPECIALIST in to assess. Stopped O2 as patient is maintaining sats now. Original Note: ICU nurse notified this RN of patient's rapid rate between 120-160's. Notified HEALTH IT SPECIALIST of increased rate, SOB, and hypertension. Ordered IV metoprolol. Placed 2L by NC for desaturations below 88% on RA.
[2019-09-22] MEDS: METOPROLOL TARTRATE 5 MG/5 ML INJ IV (04:50)
[2019-09-22 06:23] LABS: Add Manual Diff / Slide Review NO; Basophils Absolute Auto 0 /uL (0-100); Basophils Percent Auto 0.2 % (0-2); Eosinophils Absolute Auto 100 /uL (0-450); Eosinophils Percent Auto 1.2 % (2-4); Hematocrit 38.3 % (41-53); Hemoglobin 13.1 g/dL (13.5-17.5); Lymphocytes Absolute Auto 1200 /uL (1100-4500); Mean Corpuscular HGB Conc 34.2 % (30-36); Mean Corpuscular Hemoglobin 31.3 PG (26-34); Mean Corpuscular Volume 91.6 fL (80-100); Monocytes Absolute Auto 700 /uL (0-900); Neutrophils Absolute Auto 9500 /uL (1500-7000); Neutrophils Percent Auto 82.6 % (50-75); Platelet Count 331 X10^3/uL (150-400); Red Blood Cell Count 4.18 X10^6/uL (4.5-5.9); Red Cell Distribution Width 13.3 % (11.6-14.8); White Blood Cell Count 11.5 X10^3/uL (4.5-11.0)
[2019-09-22 06:28] LABS: BUN Creatinine Ratio 20.4 (6-22); Blood Urea Nitrogen 22 mg/dL (9-20); Calcium 9.9 mg/dL (8.4-10.2); Carbon Dioxide 28 mmol/L (22-32); Chloride 92 mmol/L (98-107); Estimated Glomerular Filt Rate > 60.0 mL/min (>60); Glucose 97 mg/dL (80-110); HEMOLYSIS < 15 (0-50); Potassium 4.4 mmol/L (3.4-5.1); Sodium 129 mmol/L (137-145)
[2019-09-22 06:42] LABS: Procalcitonin < 0.05 ng/mL (<0.5)
[2019-09-22] MEDS: METOPROLOL ER 25 MG TABLET PO (07:47)
[2019-09-22] MEDS: RIVAROXABAN 10 MG TABLET 20 MG PO (07:47)
[2019-09-22] MEDS: lisinopriL 5 MG TABLET 2.5 MG PO (07:47)
[2019-09-22] MEDS: FUROSEMIDE 20 MG TABLET PO (07:47)
[2019-09-22] MEDS: FAMOTIDINE 20 MG TABLET PO (07:47)
[2019-09-22] MEDS: SPIRONOLACTONE 25 MG TABLET PO (07:48)
[2019-09-22] MEDS: METOCLOPRAMIDE HCL 5 MG TABLET PO ×2 (07:50→10:48)
[2019-09-22] MEDS: SODIUM CHLORIDE 0.9% 500 ML 1000 ML IV (07:50)
[2019-09-22] MEDS: OXYBUTYNIN 5 MG ER TAB 10 MG PO (07:50)
[2019-09-22] MEDS: PRAMIPEXOLE 0.25 MG TABLET PO (07:51)
[2019-09-22] MEDS: SODIUM CHLORIDE 0.9% FLUSH 10 ML IV (07:51)
--- NOTE | 2019-09-22 08:00 | PC.NURSE ---
Day shift: Gave AM meds early after conversation with Dr Guzman about Pt's Afib.
--- NOTE | 2019-09-22 08:01 | PC.NURSE ---
Day shift: Had conversation with Pt about falls at hospital and the importance of using call light so staff can help him stay safe. Pt was agreeable to this plan. Pt agrees to not get OOB w/o help from staff. Call light in reach and bed alarm is on.
[2019-09-22] MEDS: CYCLOBENZAPRINE 10 MG TABLET PO (09:02)
[2019-09-22] MEDS: HYDROCODONE/ACET 5/325 TABLET 1 TAB PO (09:02)
[2019-09-22] MEDS: CEFTRIAXONE 2 GM/50 ML FROZ.PIGGY IV (09:06)
--- NOTE | 2019-09-22 10:51 | OT.IP.TRT ---
Current Diagnoses Cellulitis of left lower limb (09/22/19) Occupational Therapy Treatment Note M2 OT-IP Current Condition Start: 09/21/19 15:45 Freq: Status: Active Protocol: Document 09/21/19 15:46 CGR (Rec: 09/21/19 16:08 CGR [email or web address]) Occupational Therapy Current Condition Current Condition Evaluation Date 09/21/19 Treatment Diagnosis L ankle pain s/p fall. Diagnosis Onset Date 09/20/19 Post Operative Precautions Other Precautions Pt is NWB to the R wrist. Per MD, ok to weight bear through the forearm to use a platform walker. M3 OT- IP Subjective and Pain Start: 09/21/19 15:45 Freq: Status: Active Protocol: Document 09/22/19 14:07 CGR (Rec: 09/22/19 14:16 CGR [email or web address]) OT- Subjective Occupational Therapy Visit Type Type Progress Note Visit Start Time 10:10 Visit Stop Time 10:51 Total Visit Minutes 41 Notes cog testing with pt on this date. Dsicussed findings with his daughter and provided with recources for memory improvement. Occupational Therapy Visit Comments Patient Comments I have notices that I often don't remember things that I have done just yesterday. OT Pain Assessment Pain Present Pain Present Pain Reported Location Back Intensity 3 Scale Used Numeric (1 - 10) Management Techniques Modification of Treatment,Re- positioning M4 OT- IP ADL's Start: 09/21/19 15:45 Freq: Status: Active Protocol: Document 09/22/19 14:07 CGR (Rec: 09/22/19 14:16 CGR [email or web address]) OT [id number] Comments OT Self-Feeding Comments Not meal time OT ADL-Grooming Comments OT Grooming Comments Not performed OT ADL-Oral Care Comments Oral Care Comments Not performed OT ADL-Dressing General Eval Lower Body Dressing Ability Standby Assistance Areas Needing Assistance Socks Comments OT Dressing Comments Pt able to don socks seated in chair using BUE OT ADL-Toileting Comments OT Toileting Comments Not performed OT ADL-Bathing Comments OT Bathing Comments Not performed on this date. Pt with fluctuating HR so defered shower as HR monitor would be removed for shower. M5 OT- IP IADL's Start: 09/21/19 15:45 Freq: Status: Active Protocol: Document 09/21/19 15:46 CGR (Rec: 09/21/19 16:08 CGR [email or web address]) OT-Instrumental Activities of Daily Living Deficits IADL Deficits Identified Deficits Home Safety Awareness Awareness of Need for Assistance at Home Good Awareness Ability to Problem Solve Emergency Able to Problem Solve Situations Medication Management Medication Management Caregiver Administers Money Management Money Management Caregiver Provides Assistance Meal Preparation Meal Preparation Caregiver Provides Assist Director Global Development Director Global Development Caregiver Provides Assist Driving Driving Comments 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 M6 OT- IP Functional Cognition Start: 09/21/19 15:45 Freq: Status: Active Protocol: Document 09/22/19 14:07 CGR (Rec: 09/22/19 14:16 CGR [email or web address]) Cognitive Factors Limiting Selfcare Function Cognitive Ability Level of Alertness Alert Patient Orientation Name,Age,Birthday,Month,Date, Year,Day of Week,Place, Situation Attention Span Ability Capable of Focused Attention, Capable of Sustained Attention Ability to Follow Commands Able to Follow One Step Commands with Increased Time, Able to Follow One Step Commands with Repetition Memory Description No Deficits Noted Safety Awareness Underestimates Need for Assistance Cognitive Tests SLUMS Pt scored a 24/30 on the slums . Pt was only able to remember 2 of the 5 items he was asked to remember and missed one of the listening comprehension questions. 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 M7 OT- IP Mobility and Balance Start: 09/21/19 15:45 Freq: Status: Active Protocol: Document 09/22/19 14:07 CGR (Rec: 09/22/19 14:16 CGR [email or web address]) OT- Bed Mobility Assessment Supine to Sit Supine to Sit Assist Independent Scooting Scooting to Edge of Bed Independent OT-Transfer Assessment Sit to and From Stand Sit to and from Stand Contact Guard Assistance Transfers Transfer Ability Contact Guard Assistance Technique Transfer Destination Bed,Chair Transfer Technique Stand Step Pivot Devices Transfer Assistive Devices Gait Belt,Front Wheeled Walker ,Platform Walker M8 OT- IP Objective Assessments Start: 09/21/19 15:45 Freq: Status: Active Protocol: Document 09/21/19 15:46 CGR (Rec: 09/21/19 16:08 CGR [email or web address]) OT Gross Range of Motion Upper Extremity Range of Motion Assessment Right Impaired ROM Impairments R wrist in cast OT Strength Upper Extremity Strength Assessment Right Impaired OT- Coordination Assessment Upper Extremity Finger to Nose Test Within Functional Limits OT-Muscle Tone Assessment Muscle Tone WNL Yes OT Sensation Assessment Edema Edema Absent M9 OT- IP Assessment and Plan Start: 09/21/19 15:45 Freq: Status: Active Protocol: Document 09/22/19 14:07 CGR (Rec: 09/22/19 14:16 CGR [email or web address]) OT Summary Assessment and Plan Potential Rehabilitation Potential Good Analytic Complexity at Evaluation Moderate Summary OT Impairments Pain,Strength,Balance, Functional Cognition, Functional Mobility,Dressing, Toileting,Bathing,Toilet Transfers,Shower Transfers, Activity Tolerance Progress Towards Goals Slow Progress due to Pain,Slow Progress due to Activity Tolerance Assessment Summary Pt is progressing well with therapy. Pt will benefit from memory activities that were provided to his daughter. Pt was steady with the platform walker and is likely able to perform dressing without assist if needed. Recommendation is for d/c to home with assist. Goals Grooming Goal Independent Dressing Goal Independent Toileting Goal Independent Bathing Goal Independent Toilet Transfer Goal Independent Shower Transfer Goal Independent,Tub Transfer Bench Days to Meet Goals 9 Frequency of Treatment Frequency Of Treatment Once a Day Treatment Plan OT Treatment Plan ADL Training,Functional Cognition Training,Functional Mobility,Patient/Family Education,Discharge Planning Other Treatment Recommendations and Next standing grooming, dressing, Treatment Focus shower Discharge Recommendations OT Discharge Recommendations Home with Assistance Other Discharge Recommendations home with assist. Pt is a significant fall risk. Home Equipment Needs raised toilet seat with handles and tub transfer bench . Transportation Needs at Discharge Private Vehicle
--- NOTE | 2019-09-22 11:32 | PM.PN.1 ---
Exam Vital Signs (past 8 hours): - 09/22/19 04:25 09/22/19 04:41 09/22/19 07:29 Temperature 98.8 F Pulse Rate 169 H Respiratory Rate 24 Blood Pressure 143/97 H Pulse Oximetry 98 98 94 09/22/19 08:23 09/22/19 08:32 09/22/19 10:58 Temperature 99.7 F H Pulse Rate 122 H 129 H Respiratory Rate 19 Blood Pressure 116/59 L Pulse Oximetry 94 94 Oxygen Delivery Method Room Air Oxygen Flow Rate 0 Objective Labs Result Diagrams: 09/22/19 05:26 09/22/19 05:26 Labs: Laboratory Results - last 24 hr 09/22/19 09/22/19 09/22/19 05:26 05:26 05:26 WBC 11.5 H D RBC 4.18 L Hgb 13.1 L Hct 38.3 L MCV 91.6 MCH 31.3 MCHC 34.2 RDW 13.3 Plt Count 331 Neut % (Auto) 82.6 H D Lymph % (Auto) 10.0 L Sweet Grass % (Auto) 6.0 Eos % (Auto) 1.2 L Baso % (Auto) 0.2 Neut # (Auto) 9500 H Lymph # (Auto) 1200 Sweet Grass # (Auto) 700 Eos # (Auto) 100 Baso # (Auto) 0 Sodium 129 L Potassium 4.4 Chloride 92 L Carbon Dioxide 28 BUN 22 H Creatinine 1.08 Estimated GFR > 60.0 BUN/Creatinine Ratio 20.4 Glucose 97 Calcium 9.9 Procalcitonin < 0.05 Quality VTE Deep Vein Thrombosis/Pulmonary Embolism Present on Admission: No
[2019-09-22] MEDS: VANCOMYCIN 1,500 MG/300 ML FROZ.PIGGY 150 MG IV (11:35)
--- NOTE | 2019-09-22 11:48 | PT.IPTN ---
Current Diagnoses Cellulitis of left lower limb (09/22/19) Physical Therapy Treatment Note M2 PT-IP Current Condition Start: 09/20/19 18:25 Freq: NEEDED Status: Active Protocol: Document 09/20/19 18:28 AMH (Rec: 09/20/19 18:51 AMH [id number]) Physical Therapy Current Condition Current Condition Evaluation Date 09/20/19 Treatment Diagnosis left swollen foot, evaluate for safety with ambulation with crutches Precautions Other Precautions hx of right wrist fracture in cast and non weight bearing, right foot drop Weight Bearing Status Weight Bearing Status Full Weight Bearing M3 PT-IP Subjective Start: 09/20/19 18:25 Freq: NEEDED Status: Active Protocol: Document 09/22/19 15:15 SP (Rec: 09/22/19 16:25 SP [id number]) Subjective Physical Therapy Visit Type Type Treatment Note Visit Start Time 11:15 Visit Stop Time 11:48 Total Visit Minutes 33 Number of CASTING OPERATOR Visits 2 Physical Therapy Visit Comments Patient Comments Pt willing to work with PT. Therapy Pain Assessment Pain When Pain Assessed During Mobility Pain Present Pain Present Pain Reported Location Back Intensity 3 Scale Used Numeric (1 - 10) lateral L foot post steps Pain Behaviors Restlessness Pain Management Techniques Re-positioning,Timing of Activity with Medications M4 PT-IP Mobility and Gait Start: 09/20/19 18:25 Freq: NEEDED Status: Active Protocol: Document 09/22/19 15:15 SP (Rec: 09/22/19 16:25 SP [id number]) PT-Transfer Assessment Sit to and From Stand Sit to and from Stand Standby Assistance,Contact Guard Assistance,Minimal Assistance,Use of Upper Extremities Equipment Transfer Assistive Device Gait Belt,Straight Cane, Platform Walker Orthotic/Prosthetic Devices or Brace: Yes Transfers Transfer Destination Chair,Wheelchair Transfer Technique ambulated with FWW and step pivot Transfer Ability Level of Assist Standby Assistance,Contact Guard Assistance,Use of Upper Extremities Comments Mobility Comments Pt was upright seated in chair when arrived. Sit to stand using SPC in LUE while pushing himself up to standing Min A, no WB through RUE. Pt was able to maintain standing wtih SPC in LUE CGA, no LOB. Pt ambulated to w/c usign SPC in LUE just outside in hallway step to gait initially leading LLE then step over step patterning improved as 15 ft distance progressed, CGA- 10% A for little wt shift deviations, improved R foot clearance and upright posture and patterning SPC with RLE then pivoted to sit in w/c with safety awareness of IV tubing, asked if w/c was locked and slow graded self using LUE on w/c arm to sit. Pt stated is used to using SPC in RUE. CASTING OPERATOR managed IV pole during gait, pushed patient down to platform step. CGA sit to stand from w/c and patient complete 1 step ascend/ descend using SPC in LUE leading LUE step to patterning requiring Mod A for balance 1st step then decreased to Min A x2 more trials to assimulate home steps to get to enterance of home. Pt and daughter (spoke to yesterday) stated platform steps are big enough to use PFWW if needed. Pt was pushed in w/c back to his hallway where a nursing assistants teacher followed patietn with w/c while patient walked further distance using SPC in LUE CASTING OPERATOR provided CGA initially with noted good R foot clearance so cuing required ( CASTING OPERATOR managed IV pole), LOB x1 scissor cross LLE over RLE when turned head to L as stepping LLE. Pt required 25% A x1 for trunk support and balance while cuing for recorrecting L LE repositioning normal stance and COG balance, brief standing rest break. Pt declined to sit in w/c. Pt demonstrated 3 wt shift deviations to R and L during rest of distance to chair in room and safely pivoted and proper hand placement and slow descent to sit in chair, walked approx 90ft. CASTING OPERATOR educated patient use of SPC at this time is unsafe and required support at times during LOB and wt shift deivations, has increased risk for falls during gait and stair mgt. CASTING OPERATOR suggested gait with platform walker reassessment, patient agreed ( nurse in room initially for change IV). Pt walked about 150 ft using platform walker CGA, cued for head upright and posture to allow for increase R LE foot clearance during swing through and noted R LE almost locks out during midstance while L pelvic depression during swing through, improvement in posture and R foot clearance with occasional cues end of distance. Pt pivoted backing up to chair and unstrapped R arm on platform, proper LUE hand placement with slow descent to sit in chair when returned to room, CGA. CASTING OPERATOR recommended to continue to use platform walked during gait at this time for safety, patient verbalized understanding. Pt had call light, chair alarm donned and all needs in reach before left . Gait Assessment Gait Gait Assistance Required: Contact Guard Assist,Minimum Assistance,1 Person Assist Distance (Feet) 90 Able to Maintain Weight Bearing Status Yes During Gait Assistive Devices Assistive Device Gait Belt,Straight Cane, Platform Walker Orthotic/Prosthetic Devices or Brace: Yes Gait Deviations General Gait Pattern Antalgic,Decreased Stride Length,Decreased Feet Clearance,Flexed Trunk,Narrow Based Gait,Step-to Gait Factors Limiting Gait Function Factors Limiting Gait Function Decreased Activity Tolerance, Decreased Strength,Difficulty Following Directions,Pain,Poor Balance,Poor Safety Awareness Comments Gait Comments See mobility comments. Stair Climbing Assessment Evaluation Level of Assist On Stairs Minimal Assistance,Moderate Assistance,1 Person Assistance Devices Stair Climbing Assistive Devices Straight Cane Technique/Endurance Stair Climbing Direction Ascend and Descend Stair Climbing Technique Step to Step Number of Steps Climbed 1 Stair Climbing Set # Repetitions (reps) 3 Comments Stair Climbing Comments See mobility comments. Assess platform step using platform walker next tx for safety, assess safety and decreased assistance needed. PT-Balance Assessment Sitting Balance and Reactions Static Sitting Balance Ability Normal Dynamic Sitting Balance Ability Good Standing Balance and Reactions Static Standing Balance Ability Fair Dynamic Standing Balance Ability Poor Device Used SPC M5 PT-IP Objective Assessments Start: 09/20/19 18:25 Freq: NEEDED Status: Active Protocol: Document 09/20/19 18:28 AMH (Rec: 09/20/19 18:51 AMH [id number]) Orientation Orientation/Cognition Level of Alertness Alert Safety Awareness Decreased Safety Awareness Memory Description No Deficits Noted Gross Range of Motion Upper Extremity ROM Assessment Right Impaired Impairments right wrist fx with non weight bearing precautions Lower Extremity ROM Assessment Bilaterally Impaired Impairments history of right sided foot drop, left ankle pain with ROM all directions Strength Upper Extremity Strength Assessment Right Impaired Wrist right wrist fx Lower Extremity Strength Assessment Bilaterally Impaired Ankle left ankle 3/5 with pain, right ankle foot drop Comments Strength Comments pt has pain with weight bearing left LE, able to weight bear on the right but does not have a AFO to assist with right foot drop. Coordination Assessment Gross Coordination Gross Coordination WNL Sensation Assessment Sensation Gross Sensation WNL Muscle Tone Muscle Tone WNL Yes M6 PT-IP Treatment Start: 09/20/19 18:25 Freq: NEEDED Status: Active Protocol: Document 09/22/19 15:15 SP (Rec: 09/22/19 16:25 SP [id number]) Physical Therapy Treatment Education Education Provided Precautions,Safety M7 PT-IP Assessment and Plan Start: 09/20/19 18:25 Freq: NEEDED Status: Active Protocol: Document 09/22/19 15:15 SP (Rec: 09/22/19 16:25 SP [id number]) PT Summary Assessment and Plan Potential Rehabilitation Potential Good Status of Condition at Evaluation Evolving Summary Impairments Pain,ROM,Strength,Balance, Activity Tolerance Assessment Summary Readjusted/ decreased height of platform walker for LLE and increased height of platform for RUE support. Pt required increased support durign gait with SPC, LOB x1 Min A to recover but over all improved RLE foot clearance, CGA during gait using platform walker cuing required upright posture and RLE foot clearance. Pt completed 1 step using SPC Min - Mod A for balance and transition ascend/descend platform step to assimulate enterance to home. CGA- Min A sit to stand from chair and w/ c using SPC, CGA using platform (RUE) walker. Recommend continued use of platform walker during ambulate for safety with CGA. Unless balance improves patient will need platform for his FWW prior to DC. Pt had all needs in reach before left. Pt is able to ambulate with nursing between PT treatments, per patient request. Anticipate caregiver training prior to DC. Goals Transfer Goal Minimal Assistance Gait Goal Moderate Assistance Other Goals Family is able to participate in vision care associate training to safely transfer pt home Days to Meet Goals 5 Frequency of Treatment Frequency Of Treatment Once a Day Treatment Plan Physical Therapy Treatment Plan Transfer Training,Gait Training Other Recommendations and Next Treatment transfers, gait with (R) Focus Platform FWW if unable to ambulate with SPC as PLOF. reassess stairs 3 platform steps to assimulate home enterance using platform FWW if requires more support, caregiver training prior to DC . Recommendations To Nursing Amount of Assist Needed 1 Person Assist Discharge Recommendations PT Discharge Recommendations Home with Assistance,Home Health Other Discharge Recommendations caregiver training with daughter Equipment Needed for Home Before (R) Platform FWW if unable to Discharge ambulate with SPC as PLOF. Transportation Needs at Discharge Private Vehicle
[2019-09-22 14:02] LABS: Uric Acid 5.6 mg/dL (3.5-8.5)
--- NOTE | 2019-09-22 14:37 | P.DS_ITS ---
History of Present Illness History of Present Illness Date Patient Seen: 09/22/19 Time Patient Seen: 14:38 Chief complaint: left foot swollen x2days Narrative: Mr. Devonte Larson is a 69-year-old male with a past medical history significant for atrial fibrillation with long-term anticoagulation on Xarelto, history of spinal infection developing neurogenic bladder and right footdrop who presents to the ER with left ankle pain and swelling. The patient sustained a fall 5 days ago on 09/15/2019 which she describes as a trip and fall catching his toe and falling forward. He was evaluated in the ER and found to have a right wrist fracture and sustained abrasions to his chin and right face. He was treated and discharged home. Patient again 2 days ago which was a slip and fall the bathroom which he was able get up by himself reportedly sustained no injury. The patient developed left ankle swelling 1 day ago with increasing pain and inability to bear weight. Family at bedside also reports that the patient had low-grade temperature at home prior to presenting to the ER. Patient reports the pain is worsened with ambulation and palpation. Reports no other complaints of recent illness, no chills, nasal congestion or sore throat. He denies complaints of chest pain and has palpitation with a history of atrial fibrillation. He denies shortness of breath cough or wheezing. Has no abdominal pain, heartburn, nausea vomiting. He reports no diarrhea or constipation. He has a history of neurogenic bladder and was self catheterizing in the past but no longer needs to. Patient has a cast on the right are and at baseline the patient ambulates with a cane but has sustained frequent falls. Upon arrival to the ER the patient has a temperature of 98.9?, heart rate of 87, blood pressure 131/87, respiratory rate of 15 as an oxygen saturation 97% on room air. Imaging is obtained of the left ankle finding degenerative arthritis of the tibiotalar joint, likely posttraumatic, tibiotalar joint effusion, midfoot arthritis. CT of the left ankle is obtained to assess for osteomyelitis finding No focal areas of sclerosis or osseous erosion to suggest osteomyelitis, mild tibiotalar joint effusion, mild soft tissue thickening at the lateral malleolus, with recommendation for MRI to rule out osteomyelitis. Laboratory analysis finds a white count of 8.2, hemoglobin of 12.7, hematocrit of 36.3, platelets of 292. Electrolytes are within normal limits with potassium of 3.9 magnesium of 2.1. A BUN of 13 and creatinine 0.883. Nonfasting glucose is 159. Liver functions are all within normal range. Uric acid is 5.1, lactic acid is 1.8 ESR is 81 and CRP 15.1. Procalcitonin is less than 0.05. The patient is admitted to the medicine service for frequent falls and cellulitis left ankle. Discharge Providers Provider Date of admission: 09/22/19 09:40 Discharge Date: 09/22/19 Primary care physician: Bindu Mancia PA-C Consults: 09/20/19 16:25 Consult to Physical Therapy Evaluate & Treat Comment: Physician Instructions: Evaluate and Treat 09/20/19 19:11 Consult to Dietitian, Adult Routine Comment: Reason For Exam: daughter states poor appetite with ? weight loss 09/20/19 19:47 Consult to Discharge Planning Routine Comment: Consult to Occupational Therapy Evaluate & Treat Comment: falls, fx wrist, swollen L ankle, R foot drop Physician Instructions: Evaluate and treat 09/20/19 19:48 Consult to Physical Therapy Evaluate & Treat Comment: falls, fx wrist, swollen L ankle, R foot drop Physician Instructions: Evaluate and Treat Discharge provider: Mei Lopez MD Summary Hospital Course Discharge Diagnosis: 1. Cellulitis left ankle, present on admission, active 2. Frequent falls, gait instability secondary to right leg weakness and footdrop, present on admission, active. 3. Atrial fibrillation, probable chronic, present on admission, stable. 4. Long-term anticoagulation, present on admission, stable. 5. Tibiotalar joint effusion, present on admission, active . Hospital Course: 1. Cellulitis left ankle, present on admission, active -patient sustained a fall the day before his ankle swelling started. -CT of the ankle finds talofibular joint effusion but no fractures or dislocations. On exam insufficient fluid accumulation to be tapped. -redness of the left lateral ankle is resolved on 09/21 -antibiotics of vancomycin and ceftriaxone will be changed to Keflex for 7 more days and he will be discharged 09/21. -CRP of 15.2 on 09/20 and up to 16.0 on 09/21. Plan repeat with PCP later this week. 2. Frequent falls, gait instability secondary to right leg weakness and footdrop, present on admission, active. -patient endorses history of frequent falls having had 2 falls in the last 5 days. Both episodes are described as tripping. -patient uses a cane to ambulate typically in the right hand with right leg weakness, he seldom uses his AFO brace. -patient evaluated by physical therapy and ambulated the [place] using front wheel walker with right forearm platform. -current recommendations are [place] [facility] [place] 3. Atrial fibrillation, probable chronic, present on admission, stable. -Twelve lead EKG obtained on 09/15/2019 finds patient atrial fibrillation with a ventricular rate of 82. -electrolytes are within normal range with a potassium of 4 point. Will recheck magnesium.. -heart rate remains mildly elevated just over 100, blood pressure at 109/84, concern for hypertension with increase of medication. -resume home regimen of metoprolol 25 mg twice daily for rate control. 4. Long-term anticoagulation, present on admission, stable. -Patient reports no abnormal bleeding or bruising and has no hemoptysis, hematemesis, hematochezia or melena. -continue rivaroxaban 20 mg daily. 5. Tibiotalar joint effusion, present on admission, active -swelling reduced left ankle now present over lateral ankle though still not enough fluid to be tapped. -improving redness swelling and less warmth lessening concern for possibility of septic joint. -recommended continued elevation and ice. -Uric Acid level 5.6 and no history of gout -CRP of 15.2 on 09/20 and up to 16.0 on 09/21. Plan repeat with PCP later this week. Exam Vital Signs (past 8 hours): - 09/22/19 07:29 09/22/19 08:23 09/22/19 08:32 Temperature 99.7 F H Pulse Rate 122 H 129 H Respiratory Rate 19 Blood Pressure 116/59 L Pulse Oximetry 94 94 09/22/19 10:58 09/22/19 12:01 Temperature 98.8 F Pulse Rate 103 H Respiratory Rate 18 Blood Pressure 101/59 L Pulse Oximetry 94 96 Oxygen Delivery Method Room Air Oxygen Flow Rate 0 Narrative Exam Narrative: He is alert and oriented x3. He is in no apparent distress. His daughter says that his memory is suspect but there are no signs of that during my discussion with him today. Heart is regular rate and rhythm without murmur. Lungs are clear to auscultation bilaterally. There is no ankle edema. There is no redness on the lateral aspect of the left foot where there is some very minimal residual swelling still present. There is no tenderness. Objective Labs Result Diagrams: 09/22/19 05:26 09/22/19 05:26 Labs: Laboratory Results - last 24 hr 09/22/19 09/22/19 09/22/19 05:26 05:26 05:26 WBC 11.5 H D RBC 4.18 L Hgb 13.1 L Hct 38.3 L MCV 91.6 MCH 31.3 MCHC 34.2 RDW 13.3 Plt Count 331 Neut % (Auto) 82.6 H D Lymph % (Auto) 10.[address] [place] % (Auto) 6.0 Eos % (Auto) 1.2 L Baso % (Auto) 0.2 Neut # (Auto) 9500 H Lymph # (Auto) 1200 [place] # (Auto) 700 Eos # (Auto) 100 Baso # (Auto) 0 Sodium 129 L Potassium 4.4 Chloride 92 L Carbon Dioxide 28 BUN 22 H Creatinine 1.08 Estimated GFR > 60.0 BUN/Creatinine Ratio 20.4 Glucose 97 Uric Acid Calcium 9.9 C-Reactive Protein Procalcitonin < 0.05 09/22/19 05:26 WBC RBC Hgb Hct MCV MCH MCHC RDW Plt Count Neut % (Auto) Lymph % (Auto) [place] % (Auto) Eos % (Auto) Baso % (Auto) Neut # (Auto) Lymph # (Auto) [place] # (Auto) Eos # (Auto) Baso # (Auto) Sodium Potassium Chloride Carbon Dioxide BUN Creatinine Estimated GFR BUN/Creatinine Ratio Glucose Uric Acid 5.6 Calcium C-Reactive Protein 16.0 H Procalcitonin Discharge Plan Discharge Plan Patient Disposition: Home Discharge comment: Follow up with PCP Oleg Mancia next week Discharge orders & Medications Prescriptions: New cephalexin 500 mg capsule 500 mg PO Q8H Qty: 20 RF: 0 Continued melatonin 10 MG capsule 10 mg PO HS Qty: 0 RF: 0 trazodone 100 MG tablet 100 mg PO BEDTIME Qty: 0 RF: 0 Xarelto 20 mg tablet 20 mg PO DAILY RF: 0 Alfuzosine 10 mg PO DAILY RF: 0 cyclobenzaprine 10 mg Tablet 10 mg PO TID PRN (Reason: Spasms) RF: 0 oxybutynin chloride 10 mg Tablet Extended Release 24hr 10 mg PO DAILY RF: 0 spironolactone 25 mg Tablet 25 mg PO DAILY RF: 0 famotidine 20 mg Tablet 20 mg PO DAILY RF: 0 pramipexole 0.125 mg Tablet 0.25 mg PO DAILY RF: 0 omeprazole 20 mg Capsule,Delayed Release(Dr/Ec) 40 mg PO DAILY RF: 0 furosemide 20 mg Tablet 20 mg PO DAILY RF: 0 metoprolol succinate 25 mg Tablet Extended Release 24 Hr 25 mg PO BID RF: 0 lisinopril 2.5 mg Tablet 2.5 mg PO DAILY RF: 0 metoclopramide HCl [Reglan] 5 MG tablet 5 mg PO TID RF: 0 hydrocodone-acetaminophen 5-325 mg Tablet 1 tab PO Q6H PRN (Reason: Muscle Pain) RF: 0 Follow up/Referrals: Bindu Mancia PA-C [Primary Care Provider] - Visit Report/Discharge Packet Instructions: DI for Cellulitis -- Adult, Cellulitis, Atrial Fibrillation, DI for Atrial Fibrillation, How to Prevent Falls Discharge Data Primary Care Provider: Bindu Mancia Quality VTE Deep Vein Thrombosis/Pulmonary Embolism Present on Admission: No
--- NOTE | 2019-09-22 16:01 | CM.DPNOTE ---
DC NOte: DC order in place. Patient, spouse Heather and dtr Alesha in agreement to honor patient's wishes for home w/ family and HH Placed call to [facility] at [facility] and gave referral; patient going home today w/ family. Requested RN/PT/OT faxed signed F2F, HH order, H+P, therapy notes and DC summary P: DC home w/family and [facility] RN/PT/OT via dtr's pov MIHAI Arroyo
--- NOTE | 2019-09-22 16:38 | PC.NURSE ---
Discharge Note Patient discharged by day shift RN. Patient A&O, VSS, and no complaints of pain or discomfort before departure. All belongings packed and given to patient along with discharge instructions. Patient taken down to personal vehicle via wheelchair by [employer].
== END 2019-09-22 16:15 | disposition home health service (06) | DRG 603 ==
LOC: ED 12:24 → AC 17:46
PROVIDERS: Family Medicine; Nurse Practitioner Adult Health; Admitting Provider Internal Medicine; Emergency Provider Nurse Practitioner; PCP Physician Assistant; Visit Provider Internal Medicine
DX: L03.116 Cellulitis of left lower limb (principal); I48.20 Chronic atrial fibrillation, unspecified; Z79.01 Long term (current) use of anticoagulants; M21.371 Foot drop, right foot; M25.472 Effusion, left ankle; R29.6 Repeated falls; W01.0XXA Fall on same level from slipping, tripping and stumbling without subsequent striking against object, initial encounter; Y92.002 Bathroom of unspecified non-institutional (private) residence as the place of occurrence of the external cause; Z87.891 Personal history of nicotine dependence
CPT/HCPCS: 36415; 73610; 73630; 73700; 80048; 80053; 81001; 83605; 83735; 84145; 84550; 85025; 85651; 86140; 87040; 93005; 96361; 96365; 96366; 97116; 97129; 97130; 97161; 97166; 97530; 97535; 99284; G0378; A9270; J0696; J1644; J1885

== ENCOUNTER 2019-09-25 10:05 | Inpatient (IN) | payer BC, MEDICARE, SELFPAY ==
[2019-09-22 06:26] VITALS: BMI 25.5
[2019-09-25 10:16] VITALS: BP 119/69; PULSE 79; RESP 12; TEMP 36; O2SAT 99
--- NOTE | 2019-09-25 10:27 | DI.MRI.S_ITS ---
PROCEDURE: MR FOOT LT WO/W CON INDICATIONS: Pain/injury/swelling TECHNIQUE: Noncontrast sagittal T1 spin echo and T2 fast spin echo with fat saturation, long-axis T1 spin echo and T2 fast spin echo with fat saturation; short-axis T1 spin echo, proton density fast spin echo, and T2 fast spin echo with fat saturation through the forefoot. Post-contrast short axis, long axis, and sagittal T1 spin echo with fat saturation through the forefoot. COMPARISON: [facility], CT, CT LE LT WO CON, 09/20/2019, 17:45. [facility], CR, XR ANKLE LT MIN 3V, 09/20/2019, 12:16. [facility], CR, XR FOOT LT MIN 3V, 09/20/2019, 12:16. FINDINGS: Image quality: Diagnostic. Bones and joints: No acute fracture, dislocation, or suspicious osseous lesion is identified involving the osseous structures of the left midfoot or forefoot. Moderate degenerative changes are noted involving the midfoot joints. Mild to moderate degenerative changes are present involving the metatarsophalangeal joints, most pronounced involving the 1st metatarsophalangeal joint. No suspicious of bony enhancement is evident. No osseous erosions are identified. No significant joint effusions are appreciated. Soft tissues: Mild subcutaneous edema about the midfoot and forefoot is more prominent overlying the region of the midfoot. There are no drainable or loculated fluid collections. No suspicious soft tissue enhancement is identified. However, there are areas of mild subcutaneous enhancement within the region of the midfoot. No soft tissue masses are appreciated. A small amount of fluid is contained within the medial flexor tendon sheaths (tibialis posterior, flexor digitorum longus, and flexor hallucis longus), best appreciated within the region of the plantar aspect of the midfoot. Otherwise, the tendons are within normal limits. The extensor tendons of the forefoot are intact and otherwise within normal limits. No significant atrophy is appreciated involving the intrinsic muscles of the midfoot or forefoot. IMPRESSION: 1. Mild subcutaneous edema about the midfoot and forefoot without and associated abscess may be related to recent soft tissue injury or potentially cellulitis. Please correlate clinically. 2. No acute fractures of the left midfoot/forefoot. 3. No osseous erosions or evidence of osteomyelitis. 4. [id number] degenerative changes of the midfoot and forefoot joints. 5. Fluid within it the medial flexor tendon sheaths is suggestive of tenosynovitis. An infectious synovitis is difficult to exclude. The tendons are intact. Dictated by: Bradley Slater M.D. on 09/25/2019 at 11:20 Approved by: Bradley Slater M.D. on 09/25/2019 at 11:39
--- NOTE | 2019-09-25 10:30 | ED_ITS ---
HPI - Extremity Problem General Chief complaint: Skin/Abscess/Foreign Body Stated complaint: Left Foot Pain.. Source: patient and family () Mode of arrival: Wheelchair History of Present Illness HPI Narrative: Patient discharged few days ago for admission/treatment left foot cellulitis. Discharge home on Keflex. Patient was admitted for a fall and injury to his right upper extremity, also noted to have cellulitis of the left foot. No skin injury to it. The redness and swelling overlying cellulitic left foot is improving however patient states still unable to bear weight on his left foot, feels as though problem is deeper, in the bone. X-ray was done on that day admission and no fracture seen. No fever chills. Related Data Home Medications Medication Instructions Recorded Confirmed melatonin 10 mg PO HS #0 06/02/17 09/20/19 trazodone 100 mg PO BEDTIME #0 06/02/17 09/20/19 Xarelto 20 mg PO DAILY 09/15/19 09/20/19 Alfuzosine 10 mg PO DAILY 09/20/19 09/20/19 cyclobenzaprine 10 mg PO TID PRN 09/20/19 09/20/19 famotidine 20 mg PO DAILY 09/20/19 09/20/19 furosemide 20 mg PO DAILY 09/20/19 09/20/19 hydrocodone-acetaminophen 1 tab PO Q6H PRN 09/20/19 09/20/19 lisinopril 2.5 mg PO DAILY 09/20/19 09/20/19 metoclopramide HCl [Reglan] 5 mg PO TID 09/20/19 09/20/19 metoprolol succinate 25 mg PO BID 09/20/19 09/20/19 omeprazole 40 mg PO DAILY 09/20/19 09/20/19 oxybutynin chloride 10 mg PO DAILY 09/20/19 09/20/19 pramipexole 0.25 mg PO DAILY 09/20/19 09/20/19 spironolactone 25 mg PO DAILY 09/20/19 09/20/19 Previous Rx's Medication Instructions Recorded cephalexin 500 mg PO Q8H #20 cap 09/22/19 Allergies Allergy/AdvReac Type Severity Reaction Status Date / Time methadone [METHADONE] Allergy Unknown Verified 09/20/19 12:19 Review of Systems Review of Systems Narrative: GENERAL: Denies chills, fatigue, malaise, fever, sweats. MUSCULOSKELETAL: denies weakness, joint pain, or bony pain SKIN: Denies rash, skin lesions, or other NEUROLOGIC: Denies weakness, or numbness PSYCHIATRIC: No concerning psychosocial issues. ROS Unobtainable: All systems reviewed & are unremarkable except as noted in HPI and below Patient History Medical History Atrial fibrillation (Acute) Foot drop, right (Acute) Frequent falls (Inactive) senior living current use of anticoagulant (Acute) Neurogenic bladder (Acute) Restless leg syndrome (Acute) Surgical History History of spinal surgery (Acute) Family History Father Stroke Mother Diabetes mellitus Brother Diabetes mellitus Social History household members: spouse Smoking Status: Former smoker alcohol intake: current Smoking Status: Former smoker alcohol intake frequency: holidays/special occasions only Substance Use Type: does not use Exam Narrative Exam Narrative: GENERAL: patient appears stated age. Well-nourished, well- developed patient, in no distress, not toxic HEAD: Atraumatic. Normocephalic. CARDIOVASCULAR: Regular rate and rhythm without murmurs, gallops, or rubs. RESPIRATORY: Clear to auscultation. Breath sounds equal bilaterally. No wheezes, rales, or rhonchi. EXTREMITIES: Examination left lower extremity knee to toes exposed. Nontender and knee and ankle. Able to flex extend knee and ankle. There is tenderness at the dorsum of the left foot. Mild erythema and has improved according to patient and as well as the nurse that took care of him on initial date of admission from the emergency department. Nontender at the plantar surface of the foot. Foot is warm and soft with strong pedal pulse and light touch intact to toes. Skin is intact. No red streaking NEURO: AOx3. SKIN: No rash or erythema of visible areas Initial Vital Signs Initial Vital Signs: Vital Signs Temperature 96.8 F L 09/25/19 10:16 Pulse Rate 79 09/25/19 10:16 Respiratory Rate 12 09/25/19 10:16 Blood Pressure 119/69 09/25/19 10:16 Pulse Oximetry 99 09/25/19 10:16 Course Orders Ordered: ED Orders 09/25/19 10:27 MR foot LT wo/w con Stat 09/25/19 10:55 Complete Blood Count AUTO DIFF Stat Comprehensive Metabolic Panel Stat Discontinued Medications Vancomycin HCl (Vancomycin) 1,000 mg in 200 mls @ 200 mls/hr IV NOW ONE Stop: 09/25/19 14:30 Last Infusion: 09/25/19 15:01 Dose: 200 mls/hr Documented by: Admin: 09/25/19 13:41 Dose: 200 mls/hr Documented by: [facility] Ceftriaxone Sodium/Dextrose (Rocephin) 1 gm in 50 mls @ 100 mls/hr IV NOW ONE Stop: 09/25/19 14:01 Last Infusion: 09/25/19 14:14 Dose: 0 mls/hr Documented by: Admin: 09/25/19 13:41 Dose: 100 mls/hr Documented by: [facility] Consultations Consultation #1: Time 1:33 p.m.. Spoke with orthopedics Dr. Fitzgerald, recommends IV antibiotics. Consultation #2: Contact Dr. tineo. Will admit Vital Signs Vital signs: Vital Signs - 8 hr 09/25/19 10:16 Temperature 96.8 F L Pulse Rate 79 Respiratory Rate 12 Blood Pressure 119/69 Pulse Oximetry 99 MDM - Extremity (Nontraumatic) Differential Diagnosis Differential diagnosis: Likely other (Cellulitis/occult fracture/osteomyelitis) Lab Data Result diagrams: 09/25/19 10:55 09/25/19 10:55 Labs: Lab Results 09/25/19 09/25/19 Range/Units 10:55 10:55 WBC 7.9 (4.5-11.0) X10^3/uL RBC 3.63 L (4.5-5.9) X10^6/uL Hgb 11.4 L (13.5-17.5) g/dL Hct 32.6 L (41-53) % MCV 89.9 (80-100) fL MCH 31.5 (26-34) PG MCHC 35.0 (30-36) % RDW 13.1 (11.6-14.8) % Plt Count 417 H (150-400) X10^3/uL Neut % (Auto) 72.9 (50-75) % Lymph % (Auto) 15.7 L (25-40) % [place] % (Auto) 9.8 (3-14) % Eos % (Auto) 1.1 L (2-4) % Baso % (Auto) 0.5 (0-2) % Neut # (Auto) 5700 (9304-6986) /uL Lymph # (Auto) 1200 (6888-0952) /uL [place] # (Auto) 800 (0-900) /uL Eos # (Auto) 100 (0-450) /uL Baso # (Auto) 0 (0-100) /uL Sodium 130 L (137-145) mmol/L Potassium 4.2 (3.4-5.1) mmol/L Chloride 97 L (98-107) mmol/L Carbon Dioxide 23 (22-32) mmol/L BUN 13 (9-20) mg/dL Creatinine 0.79 (0.66-1.25) mg/dL Estimated GFR > 60.0 (>60) mL/min BUN/Creatinine Ratio 16.5 (6-22) Glucose 147 H (80-110) mg/dL Calcium 9.0 (8.4-10.2) mg/dL Total Bilirubin 0.5 (0.2-1.3) mg/dL AST 19 (17-59) IU/L ALT 16 (<50) IU/L Alkaline Phosphatase 100 (38-126) U/L Total Protein 7.3 (6.3-8.2) g/dL Albumin 3.7 (3.5-5.0) g/dL Globulin 3.6 (1.7-4.1) g/dL Albumin/Globulin Ratio 1.0 (1.0-2.8) Imaging Data MRI left foot: Radiologist's Impression: [address] [address] Magnetic Resonance Report Signed Patient: Devonte Larson PMR#: [id number] : 1950Acct:[id number] Age/Sex: 69 / MDate of Service: 09/25/19 Loc: ED Accession Number: [id number] Procedure: MR foot LT wo/w con Ordering Provider: Scott Saldivar MD PROCEDURE: MR FOOT LT WO/W CON INDICATIONS: Pain/injury/swelling TECHNIQUE: Noncontrast sagittal T1 spin echo and T2 fast spin echo with fat saturation, long-axis T1 spin echo and T2 fast spin echo with fat saturation; short-axis T1 spin echo, proton density fast spin echo, and T2 fast spin echo with fat saturation through the forefoot. Post-contrast short axis, long axis, and sagittal T1 spin echo with fat saturation through the forefoot. COMPARISON: [facility], CT, CT LE LT WO CON, 09/20/2019, 17:45. [facility], CR, XR ANKLE LT MIN 3V, 09/20/2019, 12:16. [facility], CR, XR FOOT LT MIN 3V, 09/20/2019, 12:16. FINDINGS: Image quality: Diagnostic. Bones and joints: No acute fracture, dislocation, or suspicious osseous lesion is identified involving the osseous structures of the left midfoot or forefoot. Moderate degenerative changes are noted involving the midfoot joints. Mild to moderate degenerative changes are present involving the metatarsophalangeal joints, most pronounced involving the 1st metatarsophalangeal joint. No suspicious of bony enhancement is evident. No osseous erosions are identified. No significant joint effusions are appreciated. Soft tissues: Mild subcutaneous edema about the midfoot and forefoot is more prominent overlying the region of the midfoot. There are no drainable or loculated fluid collections. No suspicious soft tissue enhancement is identified. However, there are areas of mild subcutaneous enhancement within the region of the midfoot. No soft tissue masses are appreciated. A small amount of fluid is contained within the medial flexor tendon sheaths (tibialis posterior, flexor digitorum longus, and flexor hallucis longus), best appreciated within the region of the plantar aspect of the midfoot. Othe rwise, the tendons are within normal limits. The extensor tendons of the forefoot are intact and otherwise within normal limits. No significant atrophy is appreciated involving the intrinsic muscles of the midfoot or forefoot. IMPRESSION: 1. Mild subcutaneous edema about the midfoot and forefoot without and associated abscess may be related to recent soft tissue injury or potentially cellulitis. Please correlate clinically. 2. No acute fractures of the left midfoot/forefoot. 3. No osseous erosions or evidence of osteomyelitis. 4. Kast-[id number] degenerative changes of the midfoot and forefoot joints. 5. Fluid within it the medial flexor tendon sheaths is suggestive of tenosynovitis. An infectious synovitis is difficult to exclude. The tendons are intact. Dictated by: Bradley Slater M.D. on 09/25/2019 at 11:20 Approved by: Bradley Slater M.D. on 09/25/2019 at 11:39 Discharge Plan Departure Patient Disposition: Admitted as Observation Clinical Impression: Tenosynovitis of foot
--- NOTE | 2019-09-25 10:40 | PC.NURSE ---
2 attempts,1 by Jacqueline SHOOK unsuccessful and successful but unable to draw labs by myself. Iv patent
[2019-09-25 11:05] LABS: Add Manual Diff / Slide Review NO; Basophils Absolute Auto 0 /uL (0-100); Basophils Percent Auto 0.5 % (0-2); Eosinophils Absolute Auto 100 /uL (0-450); Eosinophils Percent Auto 1.1 % (2-4); Hematocrit 32.6 % (41-53); Hemoglobin 11.4 g/dL (13.5-17.5); Lymphocytes Absolute Auto 1200 /uL (1100-4500); Lymphocytes Percent Auto 15.7 % (25-40); Mean Corpuscular Hemoglobin 31.5 PG (26-34); Mean Corpuscular Volume 89.9 fL (80-100); Monocytes Absolute Auto 800 /uL (0-900); Monocytes Percent Auto 9.8 % (3-14); Neutrophils Absolute Auto 5700 /uL (1500-7000); Neutrophils Percent Auto 72.9 % (50-75); Platelet Count 417 X10^3/uL (150-400); Red Blood Cell Count 3.63 X10^6/uL (4.5-5.9); Red Cell Distribution Width 13.1 % (11.6-14.8); White Blood Cell Count 7.9 X10^3/uL (4.5-11.0)
[2019-09-25 11:17] LABS: Alanine Aminotransferase 16 IU/L (<50); Albumin 3.7 g/dL (3.5-5.0); Alkaline Phosphatase 100 U/L (38-126); Aspartate Aminotransferase 19 IU/L (17-59); BUN Creatinine Ratio 16.5 (6-22); Bilirubin Total 0.5 mg/dL (0.2-1.3); Blood Urea Nitrogen 13 mg/dL (9-20); Carbon Dioxide 23 mmol/L (22-32); Chloride 97 mmol/L (98-107); Estimated Glomerular Filt Rate > 60.0 mL/min (>60); Globulin 3.6 g/dL (1.7-4.1); Glucose 147 mg/dL (80-110); HEMOLYSIS < 15 (0-50); Potassium 4.2 mmol/L (3.4-5.1); Sodium 130 mmol/L (137-145); Total Protein 7.3 g/dL (6.3-8.2)
[2019-09-25] MEDS: CEFTRIAXONE 1 GM/50 ML FROZ.PIGGY IV (13:41)
[2019-09-25] MEDS: VANCOMYCIN 1,000 MG/200 ML PIGGYBACK 200 MG IV (13:41)
[2019-09-25 15:05] VITALS: BP 128/72; PULSE 86; RESP 18; TEMP 36.4; O2SAT 96
[2019-09-25 15:38] VITALS: BMI 27.1
[2019-09-25] MEDS: HYDROMORPHONE 1 MG INJ IV ×2 (16:24→22:27)
[2019-09-25 19:56] VITALS: BP 109/66; PULSE 94; RESP 18; TEMP 36.5
[2019-09-25] MEDS: MELATONIN 3 MG TABLET 9 MG PO (21:56)
[2019-09-25] MEDS: RIVAROXABAN 10 MG TABLET 20 MG PO (21:56)
[2019-09-25] MEDS: TRAZODONE 100 MG TABLET PO (21:57)
[2019-09-25] MEDS: SODIUM CHLORIDE 0.45% 1,000 ML 125 ML IV (22:03)
[2019-09-25 23:00] VITALS: BP 100/65; PULSE 102; RESP 16; TEMP 38.1; O2SAT 95
[2019-09-25] MEDS: VANCOMYCIN 1,250 MG in SODIUM CHLORIDE 0.9% 250 ML IV (23:07)
[2019-09-26] VITALS (8 sets, daily range): BP systolic 96–129; BP diastolic 58–76; PULSE 79–106; RESP 16–20; TEMP 36.6–36.9; O2SAT 95–99
--- NOTE | 2019-09-26 02:57 | P.HP_ITS ---
History of Present Illness History of Present Illness Date Patient Seen: 09/25/19 Time Patient Seen: 21:45 Chief complaint: Left Foot Pain Narrative: Mr. Devonte Larson is a 69-year-old male with a past medical history significant for atrial fibrillation with long-term anticoagulation on Xarelto, history of spinal infection, developed subsequent neurogenic bladder and right footdrop who presents to the ER with left ankle pain and swelling. The patient sustained a fall on 09/15/2019 which he described as a trip and fall catching his toe and falling forward. He was evaluated in the ER and found to have a right wrist fracture and sustained abrasions to his chin and right face. He was treated and discharged home. After discharge from the ED, he slipped and fell the bathroom which he was able get up by himself reportedly sustained no injury. The patient developed left ankle swelling with increasing pain and inability to bear weight. The patient had low-grade temperature at home prior to presenting to the ER. Patient reported the pain is worsened with ambulation and palpation. Reports no other complaints of recent illness, no chills, nasal congestion or sore throat. He denies complaints of chest pain and has palpitation with a history of atrial fibrillation. He denies shortness of breath cough or wheezing. Has no abdominal pain, heartburn, nausea vomiting. He reports no diarrhea or constipation. He has a history of neurogenic bladder and was self catheterizing in the past but no longer needs to. Patient has a cast on the right are and at baseline the patient ambulates with a cane but has sustained frequent falls. The patient was discharged to home on September 21. He returned today after he was unable to weight bear on that foot. He states his right arm which is currently in a cast continues to be painful and is hard to control the pain. He denies fever sweats or chills, difficulty breathing, chest pain, nausea or vomiting, dysuria, diarrhea or constipation. He does endorse having chronic footdrop and currently due to a fractured right wrist, the patient finds it difficult to ambulate with a cane as this is his stronger hand. 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) Neurogenic bladder (Acute) Restless leg syndrome (Acute) Surgical History History of fusion of cervical spine (Acute) History of spinal surgery (Acute) Hx of lumbosacral spine surgery (Acute) Family & Social History Family History Father Stroke Mother Diabetes mellitus Brother Diabetes mellitus Social History: household members spouse Prior Living Arrangements House Safety & Behavioral: Feels Safe in Current Yes Environment Been Physically Hurt or No Threatened By a Person Suicidal Ideation Description None Suicide Plan Description No Plan Tobacco & Substance use: Smoking Status Former smoker alcohol intake current alcohol intake frequency holiday/special occasion Substance Use Type does not use Meds Home Medications and Allergies Home Medications Medication Instructions Recorded Confirmed Type melatonin 10 mg PO HS #0 06/02/17 09/25/19 History trazodone 100 mg PO BEDTIME #0 06/02/17 09/25/19 History Xarelto 20 mg PO DAILY 09/15/19 09/25/19 History Alfuzosine 10 mg PO DAILY 09/20/19 09/20/19 History cyclobenzaprine 10 mg PO TID PRN 09/20/19 09/25/19 History famotidine 20 mg PO DAILY 09/20/19 09/25/19 History furosemide 20 mg PO DAILY 09/20/19 09/25/19 History hydrocodone-acetaminophen 1 tab PO Q6H PRN 09/20/19 09/25/19 History lisinopril 2.5 mg PO DAILY 09/20/19 09/25/19 History metoclopramide HCl [Reglan] 5 mg PO TID 09/20/19 09/25/19 History metoprolol succinate 25 mg PO BID 09/20/19 09/25/19 History omeprazole 40 mg PO DAILY 09/20/19 09/25/19 History oxybutynin chloride 10 mg PO DAILY 09/20/19 09/25/19 History pramipexole 0.25 mg PO DAILY 09/20/19 09/25/19 History spironolactone 25 mg PO DAILY 09/20/19 09/25/19 History cephalexin 500 mg PO Q8H #20 cap 09/22/19 09/25/19 Rx Allergies Allergy/AdvReac Type Severity Reaction Status Date / Time methadone [METHADONE] Allergy Unknown Verified 09/20/19 12:19 Review of Systems Review of Systems ROS: Yes All systems reviewed with the patient and are negative except as otherwise documented Exam Vital Signs (past 8 hours): - 09/25/19 19:56 09/25/19 23:00 Temperature 97.7 F 100.6 F H Pulse Rate 94 H 102 H Respiratory Rate 18 16 Blood Pressure 109/66 100/65 Pulse Oximetry 95 Oxygen Delivery Method Room Air Oxygen Flow Rate 0 Narrative Exam Narrative: Gen: Alert, oriented, well nourished 69 y.o. male, appears mildly uncomfortable HEENT: normocephalic, atraumatic, conjunctiva clear, sclera non-icteric, oral mucosa pink and moist Neck: supple, full ROM, no JVD Resp: Lungs CTA, non-labored breathing CV: RRR, no murmur or rubs Abd: soft, non-tender, normoactive BTs Skin: no lesions or rashes, dry and intact Neuro: Alert and oriented X 4 w/no focal deficits Extremities: Right forearm, wrist and upper hand is concealed in a cast, good capillary refill. Left ankle with nonpitting edema and erythema laterally and medially. Psyche: normal mood and affect. Objective Labs Result Diagrams: 09/25/19 10:55 09/25/19 10:55 Labs: Laboratory Results - last 24 hr 09/25/19 09/25/19 10:55 10:55 WBC 7.9 RBC 3.63 L Hgb 11.4 L Hct 32.6 L MCV 89.9 MCH 31.5 MCHC 35.0 RDW 13.1 Plt Count 417 H Neut % (Auto) 72.9 Lymph % (Auto) 15.7 L [place] % (Auto) 9.8 Eos % (Auto) 1.1 L Baso % (Auto) 0.5 Neut # (Auto) 5700 Lymph # (Auto) 1200 [place] # (Auto) 800 Eos # (Auto) 100 Baso # (Auto) 0 Sodium 130 L Potassium 4.2 Chloride 97 L Carbon Dioxide 23 BUN 13 Creatinine 0.79 Estimated GFR > 60.0 BUN/Creatinine Ratio 16.5 Glucose 147 H Calcium 9.0 Total Bilirubin 0.5 AST 19 ALT 16 Alkaline Phosphatase 100 Total Protein 7.3 Albumin 3.7 Globulin 3.6 Albumin/Globulin Ratio 1.0 Assessment & Plan Assessment & Plan narrative: 1. Cellulitis left ankle, acute and present on admission -patient sustained a fall the day before his ankle swelling started. -CT of the ankle finds talofibular joint effusion but no fractures or dislocations. On exam insufficient fluid accumulation to be tapped. -MRI of the foot indicates tenosynovitis of the medial flex or tendon sheath -erythema of the left lateral ankle -IV antibiotics of vancomycin and ceftriaxone initiated today -question if patient may need to be discharged on IV home infusion of antibiotics -last blood culture was done on September 19 indicating no growth in each bottle, I have ordered another set of blood cultures due to a temperature of 100.6? tonight. -lactate is pending 2. Frequent falls, gait instability secondary to right leg weakness and footdrop, chronic, present on admission. -patient endorses history of frequent falls having had 2 falls in the last 5 days. Both episodes are described as tripping and is aggravated by his right footdrop. -patient uses a cane to ambulate typically in the right hand with right leg weakness, he seldom uses his AFO brace. 3. Atrial fibrillation, probable chronic, present on admission, stable. -electrolytes are within normal range with a potassium of 4.2. Will check amagnesium. -heart rate remains mildly elevated just over 102, blood pressure at 100/65, concern for hypertension with increase of medication. -Continue home dose of metoprolol 25 mg twice daily for rate control. 4. Long-term anticoagulation, present on admission, stable. -Patient reports no abnormal bleeding or bruising and has no hemoptysis, hematemesis, hematochezia or melena. -continue rivaroxaban 20 mg daily. 5. Tibiotalar joint effusion, present on admission, active -swelling of left ankle laterally and medially now presen though still not enough fluid to be tapped. -improving redness swelling and less warmth lessening concern for possibility of septic joint. -recommended continued elevation and ice. Consults: ED provider discussed case with Orthopedic surgery and they recommended antibiotic treatment Patient is placed into an inpatient bed. Stay is likely to exceed 2 midnights. FEN: IV normal saline at 100 mL/hour, regular diet, BMP in the am. VTE prophylaxis: Patient currently takes rivaroxaban 20 mg p.o. daily Dispo: Probable discharge to home Code Status: Full code as discussed with patient
[2019-09-26 04:01] LABS: Add Manual Diff / Slide Review NO; Basophils Absolute Auto 100 /uL (0-100); Basophils Percent Auto 0.8 % (0-2); Eosinophils Absolute Auto 100 /uL (0-450); Eosinophils Percent Auto 1.7 % (2-4); Hematocrit 32.9 % (41-53); Hemoglobin 11.7 g/dL (13.5-17.5); Lymphocytes Absolute Auto 2200 /uL (1100-4500); Lymphocytes Percent Auto 29.4 % (25-40); Mean Corpuscular HGB Conc 35.5 % (30-36); Mean Corpuscular Hemoglobin 31.9 PG (26-34); Mean Corpuscular Volume 89.9 fL (80-100); Monocytes Absolute Auto 700 /uL (0-900); Monocytes Percent Auto 9.6 % (3-14); Neutrophils Absolute Auto 4400 /uL (1500-7000); Neutrophils Percent Auto 58.5 % (50-75); Platelet Count 439 X10^3/uL (150-400); Red Blood Cell Count 3.66 X10^6/uL (4.5-5.9); Red Cell Distribution Width 13.5 % (11.6-14.8); White Blood Cell Count 7.5 X10^3/uL (4.5-11.0)
[2019-09-26 04:08] LABS: Lactate (Lactic Acid) 0.7 mmol/L (0.7-2.1); Magnesium 2.2 mg/dL (1.6-2.3)
[2019-09-26 04:09] LABS: BUN Creatinine Ratio 13.9 (6-22); Blood Urea Nitrogen 11 mg/dL (9-20); Calcium 8.9 mg/dL (8.4-10.2); Carbon Dioxide 26 mmol/L (22-32); Chloride 97 mmol/L (98-107); Estimated Glomerular Filt Rate > 60.0 mL/min (>60); Glucose 94 mg/dL (80-110); HEMOLYSIS < 15 (0-50); Potassium 4.2 mmol/L (3.4-5.1); Sodium 130 mmol/L (137-145)
[2019-09-26] MEDS: SODIUM CHLORIDE 0.9% 1,000 ML 125 ML IV ×2 (04:21→14:21)
[2019-09-26] MEDS: PANTOPRAZOLE 40 MG TABLET PO (06:04)
[2019-09-26] MEDS: VANCOMYCIN 1,250 MG in SODIUM CHLORIDE 0.9% 250 ML IV ×3 (06:04→22:27)
[2019-09-26] MEDS: OXYCODONE/ACETAMINOPHEN 5/325 TABLET 1 TAB PO ×3 (06:04→17:38)
[2019-09-26] MEDS: FAMOTIDINE 20 MG TABLET PO (08:05)
[2019-09-26] MEDS: RIVAROXABAN 10 MG TABLET 20 MG PO (08:05)
[2019-09-26] MEDS: METOPROLOL ER 25 MG TABLET PO (08:05)
[2019-09-26] MEDS: PRAMIPEXOLE 0.25 MG TABLET PO (11:43)
[2019-09-26] MEDS: OXYBUTYNIN 5 MG ER TAB 10 MG PO (11:44)
--- NOTE | 2019-09-26 11:57 | CM.DANOTE ---
Addendum entered by MIHAI López 09/26/19 13:50: ADD: SW called Pepper at [facility] and [place] [facility] [place] that [place] is Inpt Status and requesting call back to confirm that pt will only need Resume HH orders at d/c (since they had not completed initial visit with pt prior to admit yesterday to [facility]). Ortho Consult still pending. BF Original Note: Patient is a 69 year old male who was Readmit on 09/25/19 for Left Foot Pain. Pt has BCBS OUT STATE REG and [employer] for insurance and his PCP is Dr. Bindu Mancia. EMR was reviewed. Per MD, pt recently discharged home with HH on 09/22/19 with cellulitis of the foot and returns with increased pain and MRI shows infection spread to his tendon which has increased his pain and currently on IV-Abx with Ortho Consult to determine possible further needs. MD does not currently anticipate prison IV-Abx and hopeful for orals at d/c. SW met bedside with pt and explained role and pt confirms that he is fiercely independent much to the frustration of his spouse and he was about to begin [facility] services but was admitted to the hospital for increased pain. Pt still cautious about accepting HH services but willing to continue with [facility] at d/c for ongoing management of his infection and non-weight baring status. Ortho Consult still pending. DIEGO spoke to Pepper at [facility] and updated on pt status and faxed initial clinicals to review and Inpt vs Obs still to be determined. Plan: SW to follow closely after Ortho Consult and recommendations towards ruling out prison IV-Abx and possible walking boot for the tendon infection. SW to follow for Resume [facility] HH at d/c. MIHAI López Discharge Planning/Care Management CM Discharge Assessment Start: 09/26/19 11:55 Freq: Status: Active Protocol: Document 09/26/19 11:55 BF (Rec: 09/26/19 11:57 BF [id number]) Discharge Planning Assessment Assigned Slip Cover Seamstress MIHAI Locke DPOA/Assigned Designee Name Spouse Heather Contact Information [phone] Advance Directives? Yes History Provided By Patient,Family Member,Medical Record Has Patient been admitted in last 30 Yes days? Comment Readmit from d/c home couple days ago on 09/22/19 Prior Living Arrangements House Household Members spouse Type of transporation used prior to Drives own vehicle admit Independent with ADL's Yes Is patient alert and oriented? Yes Caregiver for Another No Comment AFO for long time R footdrop, reportedly used rarely. Patient/Family Preference Home with Home Health Comment Patient currently open with new [facility] Barriers to Discharge No Discharge Plan Home with Home Health Community Services Physical Therapy,Home Health Nurse Transportation Arrangement Family available to provide tranport home at d/c Referrals Initiated None needed Whiteboard Updated in Patient Room with Yes name and ext. # of Slip Cover Seamstress Review Status In Process Please Provide Date Initial DC 09/26/19 Assessment Was Performed Next Review Type Continued Stay Review
[2019-09-26] MEDS: CEFTRIAXONE 1 GM/50 ML FROZ.PIGGY IV (14:26)
--- NOTE | 2019-09-26 15:59 | PM.PN.1 ---
Subjective Subjective Date Patient Seen: 09/26/19 Interval history: Patient is 69-year-old male with history of chronic AFib, on Xarelto, right foot drop secondary to spinal infection presented with worsening left foot and ankle pain with difficulty bearing weight on the left lower extremity. He was admitted to [facility] from September 19 to September 21 due to left ankle cellulitis, improved on IV antibiotic, and sent home on Keflex. The following day his ankle became more painful and he was unable to bear weight. Patient states his ankle and foot feel about the same since admission. He still has a lot of pain and difficulty with weight-bearing. Nursing staff noted his heart rate at rest is around 100 but goes up to 170-180 with any activity. Exam Vital Signs (past 8 hours): - 09/26/19 08:00 09/26/19 12:00 Temperature 98.1 F Pulse Rate 106 H 88 Respiratory Rate 16 17 Blood Pressure 105/75 129/75 Pulse Oximetry 97 99 Oxygen Delivery Method Room Air Oxygen Flow Rate 0 Narrative Exam Narrative: General: Alert very pleasant and cooperative male in no acute distress Lungs: Breathing nonlabored Extremities: There is faint macular erythema with minimal edema of the left medial ankle extending to the dorsum of the foot and to the left lateral ankle. There is tenderness to palpation in this area. There is acute pain with passive flexion of the ankle. Objective Labs Result Diagrams: 09/26/19 03:39 09/26/19 03:39 Labs: Laboratory Results - last 24 hr 09/26/19 09/26/19 09/26/19 03:39 03:39 03:39 WBC 7.5 RBC 3.66 L Hgb 11.7 L Hct 32.9 L MCV 89.9 MCH 31.9 MCHC 35.5 RDW 13.5 Plt Count 439 H Neut % (Auto) 58.5 Lymph % (Auto) 29.4 [place] % (Auto) 9.6 Eos % (Auto) 1.7 L Baso % (Auto) 0.8 Neut # (Auto) 4400 Lymph # (Auto) 2200 [place] # (Auto) 700 Eos # (Auto) 100 Baso # (Auto) 100 Sodium 130 L Potassium 4.2 Chloride 97 L Carbon Dioxide 26 BUN 11 Creatinine 0.79 Estimated GFR > 60.0 BUN/Creatinine Ratio 13.9 Glucose 94 Lactate Calcium 8.9 Magnesium 2.2 09/26/19 03:39 WBC RBC Hgb Hct MCV MCH MCHC RDW Plt Count Neut % (Auto) Lymph % (Auto) [place] % (Auto) Eos % (Auto) Baso % (Auto) Neut # (Auto) Lymph # (Auto) [place] # (Auto) Eos # (Auto) Baso # (Auto) Sodium Potassium Chloride Carbon Dioxide BUN Creatinine Estimated GFR BUN/Creatinine Ratio Glucose Lactate 0.7 Calcium Magnesium Assessment & Plan Assessment & Plan narrative: 1. Cellulitis left ankle, acute and present on admission -patient sustained a fall the day before his ankle swelling started, admitted September 19 to September 21, treated with IV antibiotic, discharged on Keflex, got worse the following day. -CT of the ankle finds talofibular joint effusion but no fractures or dislocations. On exam insufficient fluid accumulation to be tapped. -MRI of the foot indicates tenosynovitis of the medial flex or tendon sheath -erythema of the left medial and lateral ankle and dorsum of foot -IV antibiotics of vancomycin and ceftriaxone to be continued, patient would likely need more extended time on IV antibiotics -blood cultures negative to date -WBC normal, CRP 16 on 09/21 2. Frequent falls, gait instability secondary to right leg weakness and footdrop, chronic, present on admission. -patient endorses history of frequent falls having had 2 falls in the last 5 days. Both episodes are described as tripping and is aggravated by his right footdrop. -patient uses a cane to ambulate typically in the right hand with right leg weakness, he seldom uses his AFO brace. 3. Atrial fibrillation, chronic, present on admission, stable. -electrolytes are within normal range with a potassium of 4.2. -patient tachycardic with any activity -increase metoprolol succinate ER to 50 mg b.i.d. -telemetry monitoring 4. Long-term anticoagulation, present on admission, stable. -Patient reports no abnormal bleeding or bruising and has no hemoptysis, hematemesis, hematochezia or melena. -continue rivaroxaban 20 mg daily. 5. Tibiotalar joint effusion, present on admission, active -swelling of left ankle laterally and medially now present though still not enough fluid to be tapped. -improving redness swelling and less warmth lessening concern for possibility of septic joint. -recommended continued elevation and ice. Consults: ED provider discussed case with Orthopedic surgery and they recommended antibiotic treatment VTE prophylaxis: Patient currently takes rivaroxaban 20 mg p.o. daily
[2019-09-26] MEDS: ACETAMINOPHEN 325 MG TABLET 650 MG PO (16:03)
[2019-09-26] MEDS: METOPROLOL IR 25 MG TABLET PO (16:42)
[2019-09-26] MEDS: MELATONIN 3 MG TABLET 9 MG PO (21:06)
[2019-09-26] MEDS: TRAZODONE 100 MG TABLET PO (21:06)
[2019-09-26] MEDS: SODIUM CHLORIDE 0.9% FLUSH 10 ML IV (21:06)
[2019-09-26] MEDS: METOPROLOL ER 25 MG TABLET 50 MG PO (21:07)
--- NOTE | 2019-09-26 22:01 | PC.NURSE ---
pt's HR is around 70-90's afib at rest. pt was in his chair for a couple hours, 1PA. pt request for more pain meds, pain was 4/10. notified Louie, she put in an order for oxycodone 5mg, ok to stagger percocet and oxycodone per MD. pt using the urinal, voiding without difficulty, he has urinary urgency at baseline. call light in reach. bed alarm active.
[2019-09-26 22:03] LABS: Vancomycin Trough 17.6 ug/mL (10-20)
[2019-09-26] MEDS: OXYCODONE IR 10 MG TABLET 5 MG PO (22:24)
[2019-09-26] MEDS: VANCOMYCIN TROUGH 1 REQUEST MISC (22:28)
[2019-09-27] VITALS (13 sets, daily range): BP systolic 109–122; BP diastolic 69–84; PULSE 73–91; RESP 16–20; TEMP 36.1–37.3; O2SAT 96–99
[2019-09-27] MEDS: PANTOPRAZOLE 40 MG TABLET PO (06:05)
[2019-09-27] MEDS: VANCOMYCIN 1,250 MG in SODIUM CHLORIDE 0.9% 250 ML IV (06:05)
[2019-09-27] MEDS: SODIUM CHLORIDE 0.9% FLUSH 10 ML IV ×2 (06:06→09:28)
[2019-09-27 07:09] LABS: Magnesium 2.1 mg/dL (1.6-2.3)
[2019-09-27] MEDS: OXYBUTYNIN 5 MG ER TAB 10 MG PO (09:29)
[2019-09-27] MEDS: PRAMIPEXOLE 0.25 MG TABLET PO (09:29)
[2019-09-27] MEDS: RIVAROXABAN 10 MG TABLET 20 MG PO (09:30)
[2019-09-27] MEDS: METOPROLOL ER 25 MG TABLET 50 MG PO ×2 (09:31→20:00)
[2019-09-27] MEDS: OXYCODONE/ACETAMINOPHEN 5/325 TABLET 1 TAB PO ×2 (09:31→16:11)
[2019-09-27] MEDS: FAMOTIDINE 20 MG TABLET PO (09:31)
[2019-09-27] MEDS: VANCOMYCIN 1,250 MG in SODIUM CHLORIDE 0.9% 250 ML 200 ML IV (13:18)
[2019-09-27] MEDS: CEFTRIAXONE 1 GM/50 ML FROZ.PIGGY IV (14:49)
--- NOTE | 2019-09-27 15:20 | PM.PN.1 ---
Subjective Subjective Date Patient Seen: 09/27/19 Interval history: The patient is a 69-year-old male who was admitted to the hospital for left forefoot tenosynovitis. Patient was discharged from the hospital on Tuesday 5 days prior to admission after treatment for cellulitis. He developed significant pain along the forefoot. MRI confirmed left forefoot tenosynovitis. He was placed on IV ceftriaxone and IV vancomycin. He continues to have pain with weight-bearing on the left foot. Exam Vital Signs (past 8 hours): - 09/27/19 07:55 09/27/19 08:00 09/27/19 10:02 Temperature 97.7 F Pulse Rate 82 89 Respiratory Rate 16 Blood Pressure 109/72 Pulse Oximetry 96 98 Oxygen Delivery Method Room Air Oxygen Flow Rate 0 Narrative Exam Narrative: Pleasant male lying in bed in no obvious distress Lungs: Clear to auscultation Cardiac exam: Regular rate and rhythm normal S1-S2 with a 2/6 systolic ejection murmur Abdomen: Soft nontender nondistended Extremities: Right upper extremity cast in place, left lower extremity mild tenderness with dorsiflexion of the foot, no erythema, no rashes noted Objective Labs Result Diagrams: 09/26/19 03:39 09/26/19 03:39 Labs: Laboratory Results - last 24 hr 09/26/19 09/27/19 21:28 06:49 Magnesium 2.1 Vancomycin Trough 17.6 Assessment & Plan Assessment & Plan narrative: Tenosynovitis following treatment of cellulitis of the left foot. -patient sustained a fall the day before his ankle swelling started, admitted September 19 to September 21, treated with IV antibiotic, discharged on Keflex, got worse the following day. -CT of the ankle finds talofibular joint effusion but no fractures or dislocations. On exam insufficient fluid accumulation to be tapped. -MRI of the foot indicates tenosynovitis of the medial flex or tendon sheath --IV antibiotics, continue ceftriaxone, D/C vancomycin ( doubt MRSA infection) -PT to provide offloading walking boot -blood cultures negative to date -WBC normal, CRP 16 on 09/21 2. Frequent falls, gait instability secondary to right leg weakness and footdrop, chronic, present on admission. -patient endorses history of frequent falls having had 2 falls in the last 5 days. Both episodes are described as tripping and is aggravated by his right footdrop. -patient uses a cane to ambulate typically in the right hand with right leg weakness, he seldom uses his AFO brace. -Right upper extremity fracture s/p fall 3. Atrial fibrillation, chronic, present on admission, stable. -electrolytes are within normal range with a potassium of 4.2. -patient tachycardic with any activity -increase metoprolol succinate ER to 50 mg b.i.d. -telemetry monitoring 4. Long-term anticoagulation, present on admission, stable. -Patient reports no abnormal bleeding or bruising and has no hemoptysis, hematemesis, hematochezia or melena. -continue rivaroxaban 20 mg daily. 5. Tibiotalar joint effusion, present on admission, active -swelling of left ankle laterally and medially now present though still not enough fluid to be tapped. -improving redness swelling and less warmth lessening concern for possibility of septic joint. -recommended continued elevation and ice. Discharge home in 1-2 days, hopefully when pain is better controlled.
[2019-09-27] MEDS: OXYCODONE IR 5 MG TABLET PO (19:56)
[2019-09-27] MEDS: MELATONIN 3 MG TABLET 9 MG PO (21:01)
[2019-09-27] MEDS: TRAZODONE 100 MG TABLET PO (21:01)
[2019-09-28] VITALS (8 sets, daily range): BP systolic 115–120; BP diastolic 61–86; PULSE 81–90; RESP 16–19; TEMP 36.4–37.1; O2SAT 95–97
[2019-09-28] MEDS: PANTOPRAZOLE 40 MG TABLET PO (05:56)
[2019-09-28 06:11] LABS: Magnesium 1.9 mg/dL (1.6-2.3)
[2019-09-28] MEDS: SODIUM CHLORIDE 0.9% FLUSH 10 ML IV ×2 (09:24→22:05)
[2019-09-28] MEDS: METOPROLOL ER 25 MG TABLET 50 MG PO (09:24)
[2019-09-28] MEDS: FAMOTIDINE 20 MG TABLET PO (09:24)
[2019-09-28] MEDS: RIVAROXABAN 10 MG TABLET 20 MG PO (09:25)
[2019-09-28] MEDS: OXYBUTYNIN 5 MG ER TAB 10 MG PO (09:25)
[2019-09-28] MEDS: PRAMIPEXOLE 0.25 MG TABLET PO (09:29)
[2019-09-28] MEDS: ACETAMINOPHEN 325 MG TABLET 650 MG PO (13:00)
[2019-09-28] MEDS: MAGNESIUM HYDROXIDE 30 ML UDC PO (13:02)
[2019-09-28] MEDS: CEFTRIAXONE 1 GM/50 ML FROZ.PIGGY IV (14:03)
--- NOTE | 2019-09-28 14:55 | PC.NURSE ---
PATIENT HR WENT UP TO 150'S WITH ACTIVITY W/ PHYSICAL THERAPY IN THE ROOM. NOW THAT HE IS SITTING HR DOWN TO LOW 100'S. DR ALLEN NOTIFIED OF SAME. STATES HE WILL LOOK AT THE TELE AND INCREASE HIS DOSE OF METOPROLOL FOR TONIGHT. NO IMMEDIATE ORDERS.
--- NOTE | 2019-09-28 15:55 | PT.IIE ---
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 use of anticoagulant (Acute) Neurogenic bladder (Acute) Restless leg syndrome (Acute) Physical Therapy Inpatient Evaluation/Re-Eval M1 PT/OT-IP Prior Functional Status Start: 09/28/19 13:36 Freq: NEEDED Status: Active Protocol: Document 09/28/19 15:24 HH (Rec: 09/28/19 15:55 [id number]) Medical Review Prior Functional Status Medical History Reviewed Yes Diet/Fluid Consistency Regular Communication no deficits noted Mobility and Gait Per EMR from previous admission, Pt has taken many falls at home Activities of Daily Living and IADL's Pt has a right wrist fx and is in a cast, he is non weight bearing through the R wrist. He has a foot drop from a previous spine infection eyars ago. He does noticed he often drags his toe without using AFO. He has been using a cane to walk but doesnt always use it in the house. He reports it 's difficulty to use FWW as well d/t R wrist fx. Social History Household Members spouse Living Arrangements House Home Equipment Front Wheel Walker,Straight Cane M2 PT-IP Current Condition Start: 09/28/19 13:36 Freq: NEEDED Status: Active Protocol: Document 09/28/19 15:24 HH (Rec: 09/28/19 15:55 [id number]) Physical Therapy Current Condition Current Condition Evaluation Date 09/28/19 Treatment Diagnosis left forefoot tenosynovitis ( medial flex) , difficulty in walking Precautions Brace Pt needed forefoot offloading walking boot per Dr. Chacon note Other Precautions hx of R wrist fx in cast and NWB, R foot drop Weight Bearing Status Allowed Weight Bearing Amount (enter % Pt needed forefoot offloading or #) (%) walking boot per Dr. Chacon note M3 PT-IP Subjective Start: 09/28/19 13:36 Freq: NEEDED Status: Active Protocol: Document 09/28/19 15:24 (Rec: 09/28/19 15:55 [id number]) Subjective Physical Therapy Visit Type Type Initial Evaluation Visit Start Time 14:45 Visit Stop Time 15:05 Total Visit Minutes 20 Notes PT called by Dr. Chacon on 09/26 to consult for gait training with forefoot offload shoe. Number of HALL DIRECTOR Visits 0 Physical Therapy Visit Comments Patient Comments Pt agreeable to mobilize with PT Patient Goals to return home safely. Therapy Pain Assessment Pain Present Pain Present Pain Reported Location Left Ankle Intensity 5 Scale Used Numeric (1 - 10) Description Aching Pain Management Techniques Timing of Activity with Medications M4 PT-IP Mobility and Gait Start: 09/28/19 13:36 Freq: NEEDED Status: Active Protocol: Document 09/28/19 15:24 (Rec: 09/28/19 15:55 [id number]) PT-Bed Mobility Assessment Supine to Sit Supine to Sit Standby Assistance Sit to Supine Sit to Supine Standby Assistance Scooting Scooting to Edge of Bed Standby Assistance PT-Transfer Assessment Sit to and From Stand Sit to and from Stand Contact Guard Assistance,1 Person Assistance Equipment Transfer Assistive Device Gait Belt,Platform Walker Orthotic/Prosthetic Devices or Brace: Yes Transfers Transfer Destination Bed,Chair Transfer Technique Stand Step Pivot Transfer Ability Level of Assist Contact Guard Assistance,1 Person Assistance Comments Mobility Comments Pt was in bed upon assessment. He completed supine to sit independently. Provided size L forefoot offloading shoes for mobility assessment. Pt stood up with 1UE on bed rail to push off and 1 UE on platform walker with CGA. Assisted pt to strap his R forearm to platform walker. Pt then amb within the room for a lap but he demonstrated significant hip hike on L LE due to the extra 2-3 inch height from off loading shoe. However, Pt was able to manuever this PW safely and make turns without signs of LOB. He did c/o pain at dorsal part of mid foot. Pt then returned to bed and completed sit to supine with SBA. Call light placed within reach. Heated blanket provided . Gait Assessment Gait Gait Assistance Required: Contact Guard Assist Distance (Feet) 12 Able to Maintain Weight Bearing Status Yes During Gait Assistive Devices Assistive Device Gait Belt,Platform Walker Orthotic/Prosthetic Devices or Brace: Yes Gait Deviations General Gait Pattern Antalgic,Decreased Stride Length,Decreased Feet Clearance,Flexed Trunk,Step-to Gait Factors Limiting Gait Function Factors Limiting Gait Function Abnormal Tonal Influences, Decreased Activity Tolerance, Decreased Strength,Limited Range of Motion,Pain,Poor Balance Comments Gait Comments see mobility comment Stair Climbing Assessment Comments Stair Climbing Comments did not assess PT-Balance Assessment Sitting Balance and Reactions Static Sitting Balance Ability Good Dynamic Sitting Balance Ability Good Standing Balance and Reactions Static Standing Balance Ability Good Dynamic Standing Balance Ability Fair Device Used PW M5 PT-IP Objective Assessments Start: 09/28/19 13:36 Freq: NEEDED Status: Active Protocol: Document 09/28/19 15:24 (Rec: 09/28/19 15:55 [id number]) Orientation Orientation/Cognition Level of Alertness Alert Orientation Name,Age,Birthday,Month,Date, Year,Day of Week,Place, Situation Language Function Ability No Deficits Noted Safety Awareness Understands Safety Issues Memory Description No Deficits Noted Gross Range of Motion Upper Extremity ROM Assessment Right Impaired Impairments right wrist fx with NWB precautions Lower Extremity ROM Assessment Bilaterally Impaired Impairments history of right sided foot drop, left ankle pain with ROM for all direction but pain d/ t infection Strength Upper Extremity Strength Assessment Right Impaired Lower Extremity Strength Assessment Bilaterally Impaired Ankle 3/5 Comments Strength Comments L ankle with pain for movement / WB Pt is able to WB on Rfoot but does not ahve a AFO to assist with R foot drop Coordination Assessment Gross Coordination Gross Coordination WNL Muscle Tone Muscle Tone WNL Yes M6 PT-IP Treatment Start: 09/28/19 13:36 Freq: NEEDED Status: Active Protocol: Document 09/28/19 15:24 (Rec: 09/28/19 15:55 [id number]) Physical Therapy Treatment Education Education Provided Safety Other Treatments Other Treatment Performed Spend 10 mins to educate the importance of wearing AFO to prevent foot drop, which reduces fall risks by avoiding toe drag/ caught on floor/ edges. M7 PT-IP Assessment and Plan Start: 09/28/19 13:36 Freq: NEEDED Status: Active Protocol: Document 09/28/19 15:24 (Rec: 09/28/19 15:55 [id number]) PT Summary Assessment and Plan Potential Rehabilitation Potential Good Status of Condition at Evaluation Evolving Summary Impairments Pain,ROM,Strength,Balance, Coordination,Tone,Bed Mobility ,Transfers,Gait,Activity Tolerance Progress Towards Goals Safe For Discharge Assessment Summary This is a mod complexity evaluation for this 69 yo male readmitted to for L foot tenosynovitis of the medial flex or tendon sheath following treatment of cellulitis. Patient was discharged from the hospital on Tuesday 5 days prior to admission after treatment for cellulitis but there;s noticeable increase in foot pain. Dr. Chacon recommended forefoot offload shoe for pt to avoid excessive pressure. Upon assessment, pt was fitted with a size L offloarding shoe and attempted to mobilize with platform walker. Pt did well with navigate with his walker but the extra inches from the offloading shoe caused pt to hip hike significant on L during swing phase. Recommended pt to have his family to bring in R AFO and shoe to redcued the height difference between LEs. Pt at this point will benefit from skilled rehab due to multiple physical limitation and ongiong infection which becomes a tremendous burden to family care. home with home health if pt is able to demonstrate independent mobility with aforementioned use of AD. Goals Bed Mobility Goal Standby Assistance Transfer Goal Standby Assistance,Cane Gait Goal Standby Assistance,Cane Gait Distance 50 Other Goals or Platform walker Days to Meet Goals 6 Frequency of Treatment Frequency Of Treatment Once a Day Treatment Plan Physical Therapy Treatment Plan Bed Mobility Training,Transfer Training,Gait Training, Therapeutic Exercise,Balance Retraining,Discharge Planning, Neuromuscular Re-ed Other Recommendations and Next Treatment check vitals Focus offload shoes fitting and gait training with R AFO and shoe platform walker training/ SPC Recommendations To Nursing Amount of Assist Needed 1 Person Assist Discharge Recommendations PT Discharge Recommendations Home with Assistance,Home Health,SNF Rehab Equipment Needed for Home Before platform walker if not safe Discharge with SPC Transportation Needs at Discharge Wheelchair/Cabulance
[2019-09-28] MEDS: OXYCODONE/ACETAMINOPHEN 5/325 TABLET 1 TAB PO (16:41)
--- NOTE | 2019-09-28 19:14 | PM.PN.1 ---
Subjective Subjective Date Patient Seen: 09/28/19 Time Patient Seen: 13:00 Interval history: The patient is a 69-year-old male who was admitted to the hospital for left forefoot tenosynovitis. Patient was discharged from the hospital on Tuesday 5 days prior to admission after treatment for cellulitis. He developed significant pain along the forefoot. MRI confirmed left forefoot tenosynovitis. He was placed on IV ceftriaxone and IV vancomycin. He continues to have pain with weight-bearing on the left foot but it is somewhat improving today with continued antibitiocs. Plan for PT evaluation. Exam Vital Signs (past 8 hours): - 09/28/19 16:00 09/28/19 16:43 Temperature 97.6 F Pulse Rate 82 Respiratory Rate 16 Blood Pressure 116/75 Pulse Oximetry 97 97 Oxygen Delivery Method Room Air Oxygen Flow Rate 0 Narrative Exam Narrative: General: Pleasant male lying in bed in no obvious distress Lungs: Clear to auscultation bilaterally. Cardiac exam: Regular rate and rhythm normal S1-S2 with a 2/6 systolic ejection murmur Abdomen: Soft nontender nondistended Extremities: Right upper extremity cast in place, left lower extremity mild tenderness with dorsiflexion of the foot, no erythema, no rashes noted. Decreased dorsiflexion of R foot as well (chronic footdrop known) but he is able to dorsiflex his R foot but it is weaker than his L. Objective Labs Result Diagrams: 09/26/19 03:39 09/26/19 03:39 Labs: Laboratory Results - last 24 hr 09/28/19 05:46 Magnesium 1.9 Assessment & Plan Assessment & Plan narrative: 1. Tenosynovitis following treatment of cellulitis of the left foot. -patient sustained a fall the day before his ankle swelling started, admitted September 19 to September 21, treated with IV antibiotic, discharged on Keflex, got worse the following day. -CT of the ankle finds talofibular joint effusion but no fractures or dislocations. On exam insufficient fluid accumulation to be tapped. -MRI of the foot indicates tenosynovitis of the medial flex or tendon sheath --IV antibiotics, continue ceftriaxone, D/C vancomycin ( doubt MRSA infection). -PT ordered. pending evaluation can stability can likely discharge home on oral antibiotics in the next 24-48 hours. -blood cultures negative to date -WBC normal, CRP 16 on 09/21 2. Frequent falls, gait instability secondary to right leg weakness and footdrop, chronic, present on admission. -patient endorses history of frequent falls having had 2 falls in the last 5 days. Both episodes are described as tripping and is aggravated by his right footdrop and now L tenosynovitis. -patient uses a cane to ambulate typically in the right hand with right leg weakness, he seldom uses his AFO brace. -Right upper extremity fracture s/p fall 3. Atrial fibrillation, chronic, present on admission, stable. -electrolytes are within normal range with a potassium of 4.2. -patient tachycardic with any activity -increase metoprolol succinate ER to 100 mg BID -telemetry monitoring -continue rivaroxaban. 4. Long-term anticoagulation, present on admission, stable. -Patient reports no abnormal bleeding or bruising and has no hemoptysis, hematemesis, hematochezia or melena. -continue rivaroxaban 20 mg daily. 5. Tibiotalar joint effusion, present on admission, active -swelling of left ankle laterally and medially now present though still not enough fluid to be tapped. -improving redness swelling and less warmth lessening concern for possibility of septic joint. -recommended continued elevation and ice. Discharge home in 1-2 days, hopefully when pain is better controlled and after PT evaluation.
[2019-09-28] MEDS: MELATONIN 3 MG TABLET 9 MG PO (22:02)
[2019-09-28] MEDS: TRAZODONE 100 MG TABLET PO (22:03)
[2019-09-28] MEDS: METOPROLOL ER 25 MG TABLET 100 MG PO (22:03)
[2019-09-29 00:57] VITALS: BP 115/68; PULSE 87
[2019-09-29] MEDS: PANTOPRAZOLE 40 MG TABLET PO (06:00)
[2019-09-29] MEDS: OXYCODONE/ACETAMINOPHEN 5/325 TABLET 1 TAB PO (06:00)
[2019-09-29 06:24] VITALS: BP 118/76; PULSE 86; RESP 16; TEMP 36.2; O2SAT 97
[2019-09-29] MEDS: PRAMIPEXOLE 0.25 MG TABLET PO (07:42)
[2019-09-29] MEDS: OXYBUTYNIN 5 MG ER TAB 10 MG PO (07:42)
[2019-09-29 07:43] VITALS: BP 117/73; PULSE 85
[2019-09-29] MEDS: DOCUSATE 100 MG CAPSULE PO (07:43)
[2019-09-29] MEDS: FAMOTIDINE 20 MG TABLET PO (07:43)
[2019-09-29] MEDS: METOPROLOL ER 25 MG TABLET 100 MG PO (07:43)
[2019-09-29] MEDS: RIVAROXABAN 10 MG TABLET 20 MG PO (07:43)
[2019-09-29] MEDS: ACETAMINOPHEN 325 MG TABLET 650 MG PO (07:44)
[2019-09-29] MEDS: SODIUM CHLORIDE 0.9% FLUSH 10 ML IV (07:44)
[2019-09-29 07:50] VITALS: BP 117/73; PULSE 85
[2019-09-29 07:54] LABS: Add Manual Diff / Slide Review NO; Basophils Absolute Auto 0 /uL (0-100); Basophils Percent Auto 0.9 % (0-2); Eosinophils Absolute Auto 100 /uL (0-450); Eosinophils Percent Auto 2.7 % (2-4); Hemoglobin 11.8 g/dL (13.5-17.5); Lymphocytes Absolute Auto 1400 /uL (1100-4500); Lymphocytes Percent Auto 26.9 % (25-40); Mean Corpuscular HGB Conc 35.7 % (30-36); Mean Corpuscular Hemoglobin 31.7 PG (26-34); Mean Corpuscular Volume 88.9 fL (80-100); Monocytes Absolute Auto 400 /uL (0-900); Monocytes Percent Auto 7.4 % (3-14); Neutrophils Absolute Auto 3300 /uL (1500-7000); Neutrophils Percent Auto 62.1 % (50-75); Platelet Count 516 X10^3/uL (150-400); Red Blood Cell Count 3.72 X10^6/uL (4.5-5.9); Red Cell Distribution Width 13.1 % (11.6-14.8); White Blood Cell Count 5.3 X10^3/uL (4.5-11.0)
[2019-09-29 08:05] LABS: BUN Creatinine Ratio 13.4 (6-22); Blood Urea Nitrogen 11 mg/dL (9-20); Calcium 9.1 mg/dL (8.4-10.2); Carbon Dioxide 27 mmol/L (22-32); Chloride 99 mmol/L (98-107); Estimated Glomerular Filt Rate > 60.0 mL/min (>60); Glucose 112 mg/dL (80-110); HEMOLYSIS < 15 (0-50); Magnesium 2.3 mg/dL (1.6-2.3); Potassium 4.2 mmol/L (3.4-5.1); Sodium 134 mmol/L (137-145)
[2019-09-29 09:00] VITALS: BP 94/64; PULSE 68; RESP 18; TEMP 36.9; O2SAT 97
[2019-09-29 09:12] VITALS: BP 132/63; O2SAT 99
--- NOTE | 2019-09-29 11:20 | PM.DS.1 ---
History of Present Illness History of Present Illness Date Patient Seen: 09/29/19 Time Patient Seen: 11:20 Chief complaint: Left Foot Pain Narrative: As per JULIUS Whyte: Mr. Devonte Larson is a 69-year-old male with a past medical history significant for atrial fibrillation with long-term anticoagulation on Xarelto, history of spinal infection, developed subsequent neurogenic bladder and right footdrop who presents to the ER with left ankle pain and swelling. The patient sustained a fall on 09/15/2019 which he described as a trip and fall catching his toe and falling forward. He was evaluated in the ER and found to have a right wrist fracture and sustained abrasions to his chin and right face. He was treated and discharged home. After discharge from the ED, he slipped and fell the bathroom which he was able get up by himself reportedly sustained no injury. The patient developed left ankle swelling with increasing pain and inability to bear weight. The patient had low-grade temperature at home prior to presenting to the ER. Patient reported the pain is worsened with ambulation and palpation. Reports no other complaints of recent illness, no chills, nasal congestion or sore throat. He denies complaints of chest pain and has palpitation with a history of atrial fibrillation. He denies shortness of breath cough or wheezing. Has no abdominal pain, heartburn, nausea vomiting. He reports no diarrhea or constipation. He has a history of neurogenic bladder and was self catheterizing in the past but no longer needs to. Patient has a cast on the right are and at baseline the patient ambulates with a cane but has sustained frequent falls. The patient was discharged to home on September 21. He returned today after he was unable to weight bear on that foot. He states his right arm which is currently in a cast continues to be painful and is hard to control the pain. He denies fever sweats or chills, difficulty breathing, chest pain, nausea or vomiting, dysuria, diarrhea or constipation. He does endorse having chronic footdrop and currently due to a fractured right wrist, the patient finds it difficult to ambulate with a cane as this is his stronger hand. Discharge Providers Provider Date of admission: 09/25/19 15:20 Discharge Date: 09/29/19 Primary care physician: Bindu Mancia PA-C Consults: 09/28/19 13:05 Consult to Physical Therapy Evaluate & Treat Comment: Physician Instructions: Evaluate and Treat Discharge provider: Mp Urban DO Summary Hospital Course Discharge Diagnosis: Please see hospital course by problem list noted below Hospital Course: This is a 69-year-old male with past medical history atrial fibrillation, prior spinal infection with known right foot drop presented with worsening left foot cellulitis and pain after being discharged home on Keflex. He was found to have tenosynovitis of his left forefoot. He improved with rest, IV antibiotics including ceftriaxone and vancomycin. He continued to stay stable on just ceftriaxone and was discharged on cefdinir 300 mg b.i.d.. 1. Tenosynovitis following treatment of cellulitis of the left foot. -patient sustained a fall the day before his ankle swelling started, admitted September 19 to September 21, treated with IV antibiotic, discharged on Keflex, got worse the following day. -CT of the ankle finds talofibular joint effusion but no fractures or dislocations. On exam insufficient fluid accumulation to be tapped. -MRI of the foot indicates tenosynovitis of the medial flex or tendon sheath -IV antibiotics were continued as an inpatient. He improved with initially ceftriaxone and vancomycin. He continued to improve with just ceftriaxone after vancomycin was discontinued. -patient did well with physical therapy. He was discharged home with home PT after caregiver training was performed. He was also given a left stabilization boot. -blood cultures negative to date -WBC normal, CRP 16 on 09/21 2. Frequent falls, gait instability secondary to right leg weakness and footdrop, chronic, present on admission. -patient endorses history of frequent falls having had 2 falls in the last 5 days. Both episodes are described as tripping and is aggravated by his right footdrop and now L tenosynovitis. -patient uses a cane to ambulate typically in the right hand with right leg weakness, he seldom uses his AFO brace. -Right upper extremity fracture s/p fall -continued PT as an outpatient 3. Atrial fibrillation, chronic, present on admission, stable. -electrolytes are within normal range with a potassium of 4.2. -patient tachycardic with any activity -patient was increased to metoprolol 100 mg, but overnight had significant bradycardia into the 30s while sleeping. He continued to have an increased heart rate while standing, but he was asymptomatic and did not drop his blood pressures. He was not dizzy. His telemetry showed events of nonsustained ventricular tachycardia. His electrolytes were normal. He should follow-up with his sprayer insecticide regarding further medication titration. Upon discharge his metoprolol was at 50 mg b.i.d. this may need to be adjusted as an outpatient and I did recommend that he follow up with his sprayer insecticide sooner than previously scheduled. He has a primary care appointment on Tuesday. One thing to consider would be a Holter monitor as an outpatient. -patient is continued on his home rivaroxaban 4. Long-term anticoagulation, present on admission, stable. -Patient reported no abnormal bleeding or bruising and has no hemoptysis, hematemesis, hematochezia or melena. -continue rivaroxaban 20 mg daily. 5. Tibiotalar joint effusion, present on admission, active -swelling of left ankle laterally and medially now present though still not enough fluid to be tapped. -improving redness swelling and less warmth lessening concern for possibility of septic joint during the course of admission -recommended continued elevation and ice. Patient was discharged home with home PT. He was given 10 additional days of antibiotics to complete therapy at home. Would recommend continued physical therapy as an outpatient. Exam Vital Signs (past 8 hours): - 09/29/19 06:24 09/29/19 07:43 09/29/19 07:50 Temperature 97.2 F L Pulse Rate 86 85 85 Respiratory Rate 16 Blood Pressure 118/76 117/73 117/73 Pulse Oximetry 97 09/29/19 09:00 Temperature 98.4 F Pulse Rate 68 Respiratory Rate 18 Blood Pressure 94/64 Pulse Oximetry 97 Oxygen Delivery Method Room Air Oxygen Flow Rate 0 Narrative Exam Narrative: General: Pleasant male lying in bed in no obvious distress Lungs: Clear to auscultation bilaterally. Cardiac exam: Regular rate and rhythm normal S1-S2 with a 2/6 systolic ejection murmur Abdomen: Soft nontender nondistended Extremities: Right upper extremity cast in place, left lower extremity mild tenderness with dorsiflexion of the foot but much improved today, no erythema, no rashes noted. Decreased dorsiflexion of R foot as well (chronic footdrop known) but he is able to dorsiflex his R foot but it is weaker than his L. Objective Labs Result Diagrams: 09/29/19 07:40 05/09/20 07:40 Labs: Laboratory Results - last 24 hr 09/29/19 09/29/19 07:40 07:40 WBC 5.3 RBC 3.72 L Hgb 11.8 L Hct 33.0 L MCV 88.9 MCH 31.7 MCHC 35.7 RDW 13.1 Plt Count 516 H Neut % (Auto) 62.1 Lymph % (Auto) 26.9 [place] % (Auto) 7.4 Eos % (Auto) 2.7 Baso % (Auto) 0.9 Neut # (Auto) 3300 Lymph # (Auto) 1400 [place] # (Auto) 400 Eos # (Auto) 100 Baso # (Auto) 0 Sodium 134 L Potassium 4.2 Chloride 99 Carbon Dioxide 27 BUN 11 Creatinine 0.82 Estimated GFR > 60.0 BUN/Creatinine Ratio 13.4 Glucose 112 H Calcium 9.1 Magnesium 2.3 Discharge Plan Discharge Plan Patient Disposition: Home Health Service Discharge comment: You were admitted to the hospital with infectious tenosynovitis of your left foot. You improved with IV antibiotics. You also had a very fast and very slow heart rate while here. I recommend that you continue metoprolol and follow up with your sprayer insecticide as soon as possible. Consider holter monitor as an outpatient at PCP visit. Discharge orders & Medications Prescriptions: New metoprolol succinate 50 mg tablet extended release 24 hr 50 mg PO BID 30 Days Qty: 60 RF: 0 miscellaneous medical supply Misc See Rx Instructions .ROUTE .COMPLEX Qty: 1 RF: 0 cefdinir 300 mg capsule 300 mg PO BID 10 Days Qty: 20 RF: 0 Continued melatonin 10 MG capsule 10 mg PO HS Qty: 0 RF: 0 trazodone 100 MG tablet 100 mg PO BEDTIME Qty: 0 RF: 0 Xarelto 20 mg tablet 20 mg PO DAILY RF: 0 Alfuzosine 10 mg PO DAILY RF: 0 cyclobenzaprine 10 mg Tablet 10 mg PO TID PRN (Reason: Spasms) RF: 0 oxybutynin chloride 10 mg Tablet Extended Release 24hr 10 mg PO DAILY RF: 0 spironolactone 25 mg Tablet 25 mg PO DAILY RF: 0 famotidine 20 mg Tablet 20 mg PO DAILY RF: 0 pramipexole 0.125 mg Tablet 0.25 mg PO DAILY RF: 0 omeprazole 20 mg Capsule,Delayed Release(Dr/Ec) 40 mg PO DAILY RF: 0 furosemide 20 mg Tablet 20 mg PO DAILY RF: 0 lisinopril 2.5 mg Tablet 2.5 mg PO DAILY RF: 0 metoclopramide HCl [Reglan] 5 MG tablet 5 mg PO TID RF: 0 hydrocodone-acetaminophen 5-325 mg Tablet 1 tab PO Q6H PRN (Reason: Muscle Pain) 7 Days Qty: 20 RF: 0 Discontinued metoprolol succinate 25 mg Tablet Extended Release 24 Hr 25 mg PO BID RF: 0 cephalexin 500 mg capsule 500 mg PO Q8H Qty: 20 RF: 0 Follow up/Referrals: Bindu Mancia PA-C [Primary Care Provider] - Diet/Activity/Treatments Diet comment: As tolerated Activity: Rest L foot with boot. Visit Report/Discharge Packet Instructions: Tenosynovitis, Atrial Fibrillation, How to Prevent Falls, Cefdinir Discharge Data Primary Care Provider: Bindu Mancia Discharges patient from system. Discharge Date/Time: 09/29/19 15:00
--- NOTE | 2019-09-29 12:45 | PC.NURSE ---
Patient denies pain at rest. Worked with PT this morning and plans for to come at 1400 for caregiver training. Anticipate discharge to home this afternoon. Daughter is going to help patient get his DME, and reports that home health is planning to come Tuesday.
[2019-09-29] MEDS: CEFTRIAXONE 1 GM/50 ML FROZ.PIGGY IV (13:35)
--- NOTE | 2019-09-29 14:32 | PT.IPTN ---
Current Diagnoses Cellulitis of left lower limb (09/25/19) Physical Therapy Treatment Note M2 PT-IP Current Condition Start: 09/28/19 13:36 Freq: NEEDED Status: Discharge Protocol: Document 09/28/19 15:24 HH (Rec: 09/28/19 15:55 HH [id number]) Physical Therapy Current Condition Current Condition Evaluation Date 09/28/19 Treatment Diagnosis left forefoot tenosynovitis ( medial flex) , difficulty in walking Precautions Brace Pt needed forefoot offloading walking boot per Dr. Chcaon note Other Precautions hx of R wrist fx in cast and NWB, R foot drop Weight Bearing Status Allowed Weight Bearing Amount (enter % Pt needed forefoot offloading or #) (%) walking boot per Dr. Chacon note M3 PT-IP Subjective Start: 09/28/19 13:36 Freq: NEEDED Status: Discharge Protocol: Document 09/29/19 09:12 SP (Rec: 09/29/19 16:28 SP [id number]) Subjective Physical Therapy Visit Type Type Treatment Note Visit Start Time 09:12 Visit Stop Time 09:37 Total Visit Minutes 60 Notes Pt required split visit secondary to amt assist required during gait and stair mgt, recommending caregiver training with in pm prior to DC for safety using PFWW. Pt seen 0912- 0937, [id number] Number of MACHINE CHAIN MAKER Visits 1 Physical Therapy Visit Comments Patient Comments Pt agreeable to working with PT for am and caregiver with in pm for safety prior to DC. Patient Goals Return home with . Therapy Pain Assessment Pain When Pain Assessed During Mobility Pain Present Pain Present Pain Reported Location Left Ankle Intensity 4 Description Pressure M4 PT-IP Mobility and Gait Start: 09/28/19 13:36 Freq: NEEDED Status: Discharge Protocol: Document 09/29/19 09:12 SP (Rec: 09/29/19 16:28 SP [id number]) PT-Bed Mobility Assessment Supine to Sit Supine to Sit Independent Sit to Supine Sit to Supine Independent Scooting Scooting to Edge of Bed Independent PT-Transfer Assessment Sit to and From Stand Sit to and from Stand Contact Guard Assistance,Use of Upper Extremities Equipment Transfer Assistive Device Gait Belt,Platform Walker Orthotic/Prosthetic Devices or Brace: Yes Transfers Transfer Destination Bed,Chair Transfer Technique Pt ambulated Transfer Ability Level of Assist Contact Guard Assistance,1 Person Assistance Comments Mobility Comments Pt was laying in bed when arrived am treatment, I supine <> sitting HOB flat. MACHINE CHAIN MAKER educated patient importance of donning unload walking L shoe and R sneaker with AFO for safety and balance with level pelvis while WB to allow L foot healing and use of PFWW at this time with verbal understanding but that didn't like it I feel like an invalid with the walker, I prefer my cane. Sit to stand using PFWW and self use of R forearm strap once in standing with cuing. Pt ambulated from R side bed to stairs and back CGA approx 160 ft with occasional cuing for upright posture, increased R knee flexion to allow for toe clearance, CGA by MACHINE CHAIN MAKER in am and in afternoon. Pt was able to ascend Mod- Min A/ descend CGA- Min 1 platform step x3 sets in am with MACHINE CHAIN MAKER then with in pm using PFWW Mod A x 1 first step then decreased to Min A x1 for trunk support secondary to decrease LE strength. Pt was laying in bed when left with alarm armed and all needs in reach after am treatment. Pt was seated EOB with nurse and in room when arrived for pm caregiver training, preparing DC plan paperwork . MACHINE CHAIN MAKER educated patient's in healthcare business analyst trainingn including gait belt, show donning as previously discussed and use of PFWW at this time for safety and patietn support with decreased support required durign WB with both patient spouse understanding. Same mobility assist and cuing by as am tx in pm. Pt was seated at EOB with in room and bed armed and call light and needs in reach while gathered patient's belongs prior to therapist leaving room. MACHINE CHAIN MAKER discussed tx with nurse daughter [facility] R platform [facility] home for use on his FWW and had patient sign paperwork for unload shoe for L foot. Gait Assessment Gait Gait Assistance Required: Contact Guard Assist Distance (Feet) 160 Able to Maintain Weight Bearing Status Yes During Gait Assistive Devices Assistive Device Gait Belt,Platform Walker Orthotic/Prosthetic Devices or Brace: Yes Gait Deviations General Gait Pattern Antalgic,Decreased Stride Length,Decreased Feet Clearance,Flexed Trunk,Step-to Gait Factors Limiting Gait Function Factors Limiting Gait Function Abnormal Tonal Influences, Decreased Activity Tolerance, Decreased Strength,Limited Range of Motion,Pain,Poor Balance Comments Gait Comments see mobility comment Stair Climbing Assessment Evaluation Level of Assist On Stairs Minimal Assistance,Moderate Assistance,1 Person Assistance Devices Stair Climbing Assistive Devices Front Wheel Walker Technique/Endurance Stair Climbing Direction Ascend and Descend Stair Climbing Technique Step to Step Number of Steps Climbed 1 Stair Climbing Set # Repetitions (reps) 3 Comments Stair Climbing Comments am with MACHINE CHAIN MAKER and pm caregiver training with using PFWW Mod- Min A x1. See mobility comments PT-Balance Assessment Sitting Balance and Reactions Static Sitting Balance Ability Good Dynamic Sitting Balance Ability Good Standing Balance and Reactions Static Standing Balance Ability Good Dynamic Standing Balance Ability Fair Device Used PW M5 PT-IP Objective Assessments Start: 09/28/19 13:36 Freq: NEEDED Status: Discharge Protocol: Document 09/28/19 15:24 HH (Rec: 09/28/19 15:55 HH [id number]) Orientation Orientation/Cognition Level of Alertness Alert Orientation Name,Age,Birthday,Month,Date, Year,Day of Week,Place, Situation Language Function Ability No Deficits Noted Safety Awareness Understands Safety Issues Memory Description No Deficits Noted Gross Range of Motion Upper Extremity ROM Assessment Right Impaired Impairments right wrist fx with NWB precautions Lower Extremity ROM Assessment Bilaterally Impaired Impairments history of right sided foot drop, left ankle pain with ROM for all direction but pain d/ t infection Strength Upper Extremity Strength Assessment Right Impaired Lower Extremity Strength Assessment Bilaterally Impaired Ankle 3/5 Comments Strength Comments L ankle with pain for movement / WB Pt is able to WB on Rfoot but does not ahve a AFO to assist with R foot drop Coordination Assessment Gross Coordination Gross Coordination WNL Muscle Tone Muscle Tone WNL Yes M6 PT-IP Treatment Start: 09/28/19 13:36 Freq: NEEDED Status: Discharge Protocol: Document 09/29/19 09:12 SP (Rec: 09/29/19 16:28 SP [id number]) Physical Therapy Treatment Education Education Provided Safety M7 PT-IP Assessment and Plan Start: 09/28/19 13:36 Freq: NEEDED Status: Discharge Protocol: Document 09/29/19 09:12 SP (Rec: 09/29/19 16:28 SP [id number]) PT Summary Assessment and Plan Potential Rehabilitation Potential Good Status of Condition at Evaluation Evolving Summary Impairments Pain,ROM,Strength,Balance, Coordination,Tone,Bed Mobility ,Transfers,Gait,Activity Tolerance Progress Towards Goals Safe For Discharge Assessment Summary Pt and educated on use of unload walking shoe per Dr. Chacon recommended to avoid excessive pressure on L foot. Pt required help for donning shoes. Pt was ableto increase distance ambulation usign PFWW withPTA and completed caregiver training with in pm secondary to safety ascend/descend step Min- Mod A with good demonstration. MACHINE CHAIN MAKER continued education on importance of use of foot wear and PFWW durign gait for increase balance and allow healing of L foot support during WB mobility. Pt verbalized understanding but that preferred his cane, family stated is with him always and would encourage use of PFWW at home. THerapy recommending DC home with family assist and home health PT to progress strengthening with mobility and continued education on safety gait with PFWW at this time and progress LRAD as allowed by physician. Pt able to DC when medically stable. Goals Bed Mobility Goal Standby Assistance Transfer Goal Standby Assistance,Cane Gait Goal Standby Assistance,Cane Gait Distance 50 Other Goals or Platform walker Days to Meet Goals 6 Frequency of Treatment Frequency Of Treatment Once a Day Treatment Plan Physical Therapy Treatment Plan Bed Mobility Training,Transfer Training,Gait Training, Therapeutic Exercise,Balance Retraining,Discharge Planning, Neuromuscular Re-ed Other Recommendations and Next Treatment check vitals Focus offload shoes fitting and gait training with R AFO and shoe platform walker training/ SPC Recommendations To Nursing Amount of Assist Needed 1 Person Assist Discharge Recommendations PT Discharge Recommendations Home with Assistance,Home Health Equipment Needed for Home Before platform walker if not safe Discharge with SPC Transportation Needs at Discharge Wheelchair/Cabulance
--- NOTE | 2019-09-29 14:40 | PC.NURSE ---
Discharge instructions and home care hand outs reviewed with patient and his . Discussed home safety, fall precautions and following recommendations for DME use at length. Patient and his state understanding at this time. They report no further questions at this time. Recommended that patient call Tuesday to schedule a follow up appointment with his PCP and his adult daycare coordinator. IV dc'd intact, patient escorted out via wheelchair with all belongings to be discharged to home with .
--- NOTE | 2019-09-30 09:27 | CM.DPNOTE ---
DCP note: EMR reviewed: CM/RN sent D/C summary and order to [facility] for their review and to initiate HH services. Cristina Owens RN
== END 2019-09-29 15:00 | disposition home health service (06) | DRG 558 ==
LOC: ED 14:56 → AC 15:54
PROVIDERS: Internal Medicine; Nurse Practitioner Family; Admitting Provider Internal Medicine; Emergency Provider Emergency Medicine; PCP Physician Assistant; Referring Provider Emergency Medicine; Visit Provider Internal Medicine
DX: M65.9 Synovitis and tenosynovitis, unspecified (principal); L03.116 Cellulitis of left lower limb; I48.20 Chronic atrial fibrillation, unspecified; Z79.01 Long term (current) use of anticoagulants; M25.472 Effusion, left ankle; I95.89 Other hypotension; N31.9 Neuromuscular dysfunction of bladder, unspecified; M21.371 Foot drop, right foot; Z87.891 Personal history of nicotine dependence; R29.6 Repeated falls
CPT/HCPCS: 36415; 73720; 80048; 80053; 80202; 83605; 83735; 85025; 87040; 96365; 96368; 97116; 97162; 97530; 99284; A9270; J1170; J7050

== ENCOUNTER → 2019-12-15 13:34 | Outpatient (CLI) | payer BC, MEDICARE, SELFPAY | PROVIDERS: PCP Physician Assistant; Visit Provider Physician Assistant | DX: R30.0 Dysuria (principal) | CPT/HCPCS: 87077; 87086; 87185; 87186 ==

== ENCOUNTER 2020-08-03 10:27 | Emergency (ER) | payer BC, MEDICARE, SELFPAY ==
[2020-08-03] VITALS (11 sets, daily range): BP systolic 127–144; BP diastolic 78–85; PULSE 66–81; RESP 14–16; TEMP 36.6; O2SAT 97–100; BMI 25.7
--- NOTE | 2020-08-03 11:09 | DI.RAD.S_ITS ---
PROCEDURE: XR RIBS LT MIN 3V W CXR1V INDICATIONS: fall on Tuesday,left RIB PAIN TECHNIQUE: 2 views of the left ribs were acquired, along with a single view chest. COMPARISON: None. FINDINGS: Surgical changes and devices: None. Bones and chest wall: Mild deformity the posterior left 12th rib. Suggest clinical correlation for point tenderness. Subtle anterior lateral left 10th rib fracture. No suspicious bony lesions. Overlying soft tissues appear unremarkable. Lungs and pleura: No pleural effusions or pneumothorax. Lungs appear clear. Mediastinum: Mediastinal contours appear normal. Heart size is normal. IMPRESSION: 1. Subtle left anterior lateral 10th rib fracture. 2. Question posterior left 12th rib fracture. 3. No evidence acute pulmonary process. Dictated by: Jarrett Rosales M.D. on 08/03/2020 at 10:36 Approved by: Jarrett Rosales M.D. on 08/03/2020 at 10:39
--- NOTE | 2020-08-03 12:14 | DI.CT.S_ITS ---
PROCEDURE: CT HEAD/BRAIN WO CON INDICATIONS: glf while etoh, on thinners TECHNIQUE: Noncontrast 4.5 mm thick angled axial sections acquired from the foramen magnum to the vertex, with coronal and sagittal reformats. For radiation dose reduction, the following was used: automated exposure control, adjustment of mA and/or kV according to patient size. COMPARISON: [facility], CT, CT HEAD/BRAIN WO CON, 09/15/2019, 17:02. FINDINGS: Image quality: Excellent. CSF spaces: Basal cisterns are patent. No extra-axial fluid collections. The ventricles are symmetric in size and shape. Brain: No intracranial bleeds or masses. There is mild cerebral volume loss for age, with resultant ventricular and sulcal prominence. There are periventricular and deep white matter chronic small vessel ischemic changes. There is intracranial internal carotid artery atherosclerosis. Skull and face: Calvarium and visualized facial bones appear intact, without suspicious lesions. Sinuses: Visualized sinuses and mastoids are clear. IMPRESSION: 1. Age related volume loss and mild small vessel ischemic change. 2. No evidence acute stroke, hemorrhage, or mass. 3. No evidence of significant intracranial sequelae of acute trauma. Dictated by: Jarrett Rosales M.D. on 08/03/2020 at 11:42 Approved by: Jarrett Rosales M.D. on 08/03/2020 at 11:47
[2020-08-03] MEDS: HYDROCODONE/ACET 5/325 TABLET 1 TAB PO (12:54)
[2020-08-03] MEDS: LIDOCAINE PATCH 1 EACH ADH..PATCH TOP (12:55)
--- NOTE | 2020-08-03 13:03 | ED.TRAUMA ---
HPI - Trauma <Mary Jo Sierra, [employer]-BC - Last Filed: 08/03/20 15:56> General Chief Complaint: Extremity Injury, Upper Stated Complaint: GLF yesterday and hurt rib on left side Time Seen by Provider: 08/03/20 11:59 Source: patient Mode of arrival: Family Vehicle Limitations: no limitations History of Present Illness HPI narrative: The patient is a 70-year-old male former smoker with history of atrial fibrillation on Xarelto who presents with his for chief complaint of a ground level fall on Tuesday. He states he had a few beers to drink, took his night medications including his trazodone and melatonin. Then he got his feet tangled up in his pants and fell, landing on his left side. He does not think he hit his head, but reiterates that he had had ?a few beers.His state up until 3:00 a.m. as she was concerned that he fell on his blood thinners. He presents with a chief complaint of left-sided lateral rib pain. He states he has a history of fractured ribs, is worried that he did that again. He has not taken anything for pain. He has not taken any Tylenol or [id number] medications since this happened. He denies any numbness or tingling. Denies any abdominal or chest pain. Denies any neck or back pain. States it hurts to take a deep breath and hurts to cough. Modified trauma activated as the patient was a ground level fall on blood thinners with a suspected injury. Related Data Home Medications Medication Instructions Recorded Confirmed melatonin 10 mg PO HS #0 06/02/17 12/15/19 trazodone 100 mg PO BEDTIME #0 06/02/17 12/15/19 Xarelto 20 mg PO DAILY 09/15/19 12/15/19 Alfuzosine 10 mg PO DAILY 09/20/19 12/15/19 cyclobenzaprine 10 mg PO TID PRN 09/20/19 12/15/19 famotidine 20 mg PO DAILY 09/20/19 12/15/19 furosemide 20 mg PO DAILY 09/20/19 12/15/19 lisinopril 2.5 mg PO DAILY 09/20/19 12/15/19 metoclopramide HCl [Reglan] 5 mg PO TID 09/20/19 12/15/19 omeprazole 40 mg PO DAILY 09/20/19 12/15/19 oxybutynin chloride 10 mg PO DAILY 09/20/19 12/15/19 pramipexole 0.25 mg PO DAILY 09/20/19 12/15/19 spironolactone 25 mg PO DAILY 09/20/19 12/15/19 Previous Rx's Medication Instructions Recorded hydrocodone-acetaminophen 1 tab PO Q6H PRN 7 Days #20 tab 09/29/19 miscellaneous medical supply See Rx Instructions .ROUTE 09/29/19 .COMPLEX #1 each hydrocodone-acetaminophen 1 tab PO Q4-6H PRN #10 tab 08/03/20 lidocaine 1 patch TOPICAL DAILY PRN #15 ea 08/03/20 Allergies Allergy/AdvReac Type Severity Reaction Status Date / Time methadone [METHADONE] Allergy Unknown Verified 12/15/19 13:40 Review of Systems <TYRONE Alan - Last Filed: 08/03/20 15:56> Review of Systems Narrative: GENERAL: Denies chills, fatigue, malaise, fever, sweats. HEENT: Denies sinus pain, ear pain, sore throat, difficulty swallowing, dizziness. RESPIRATORY: See HPI CARDIOVASCULAR: Denies chest pain, palpitations, orthopnea, edema, GASTROINTESTINAL: Denies nausea, vomiting, abdominal pain, diarrhea, constipation, melena. : Denies dysuria, frequency, incontinence, hematuria, urinary retention. MUSCULOSKELETAL: See HPI SKIN: Denies rash, skin lesions, or other NEUROLOGIC: Denies weakness, headache, numbness, change in speech, confusion, seizures, incoordination. PSYCHIATRIC: No concerning psychosocial issues. 12 point review of systems is negative except for those stated above Patient History <TYRONE Alan - Last Filed: 08/03/20 15:56> Medical History Atrial fibrillation Foot drop, right Frequent falls joint terminal attack controller current use of anticoagulant Neurogenic bladder Restless leg syndrome UTI (urinary tract infection) Surgical History History of fusion of cervical spine History of spinal surgery Hx of lumbosacral spine surgery Family History Father Stroke Mother Diabetes mellitus Brother Diabetes mellitus Social History household members: spouse Smoking Status: Former smoker alcohol intake: current Smoking Status: Former smoker alcohol intake frequency: holidays/special occasions only Substance Use Type: does not use Exam <TYRONE Alan - Last Filed: 08/03/20 15:56> Narrative Exam Narrative: GENERAL: This is a well-nourished, well-developed patient, in no acute distress HEAD: Atraumatic. Normocephalic. No temporal or scalp tenderness. EYES: Pupils equal round and reactive. Extraocular motions intact. No scleral icterus. No injection or drainage. ENT: Nose without bleeding, purulent drainage or septal hematoma. Wearing a mask Airway patent. NECK: Trachea midline. No JVD or lymphadenopathy. Supple, nontender, no meningeal signs. CARDIOVASCULAR: Regular rate and rhythm RESPIRATORY: Clear to auscultation. Breath sounds equal bilaterally. No wheezes, rales, or rhonchi. No cough. No increased respiratory effort. No accessory muscle use. Pain to palpation of lateral left-sided chest wall. GASTROINTESTINAL: Abdomen soft, non-tender, nondistended. No hepato-splenomegaly, or palpable masses. No guarding. EXTREMITIES: No clubbing, cyanosis, or edema. No joint tenderness, effusion, or edema noted. BACK: No pain to CT or L-spine palpation. Nontender without deformity or crepitance. No flank tenderness. NEURO: AOx3. SKIN: No rash or erythema on visible skin Initial Vital Signs Initial Vital Signs: Vital Signs Temperature 97.8 F 08/03/20 11:00 Pulse Rate 81 08/03/20 11:00 Respiratory Rate 16 08/03/20 11:00 Blood Pressure 137/82 08/03/20 11:00 Pulse Oximetry 97 08/03/20 11:00 <Mary Jo Gilbert DO - Last Filed: 08/03/20 18:13> Initial Vital Signs Initial Vital Signs: Vital Signs Temperature 97.8 F 08/03/20 11:00 Pulse Rate 81 08/03/20 11:00 Respiratory Rate 16 08/03/20 11:00 Blood Pressure 137/82 08/03/20 11:00 Pulse Oximetry 97 08/03/20 11:00 Scores <TYRONE Alan - Last Filed: 08/03/20 15:56> GCS [place] coma scale eye opening: Spontaneous Fidel coma scale verbal response: Orientated [place] coma scale motor response: Obey commands Fidel coma scale total score: 15 Course <TYRONE Alan - Last Filed: 08/03/20 15:56> Orders Ordered: ED Orders 08/03/20 11:09 XR ribs LT min 3V w CXR1V Stat 08/03/20 12:14 CT head/brain wo con Stat RT Consult Eval and Treat NOW Discontinued Medications Hydrocodone Bitart/Acetaminophen (Hydrocodone/Acet 5/325 Tablet) 1 tab PO NOW ONE Stop: 08/03/20 12:15 Last Admin: 08/03/20 12:54 Dose: 1 tab Documented by: HOMA Lidocaine (Lidocaine Patch 1 Each Adh..Patch) 1 each TOP NOW ONE Stop: 08/03/20 12:15 Last Admin: 08/03/20 12:55 Dose: 1 each Documented by: HOMA Lidocaine (Remove Lidocaine Patch) 1 each TOP BEDTIME SIVAN Vital Signs Vital signs: Vital Signs - 8 hr 08/03/20 11:00 08/03/20 11:02 08/03/20 11:04 Temperature 97.8 F Pulse Rate 81 81 73 Respiratory Rate 16 Blood Pressure 137/82 127/78 Pulse Oximetry 97 97 97 08/03/20 11:30 08/03/20 12:00 08/03/20 12:31 Temperature Pulse Rate 66 66 68 Respiratory Rate Blood Pressure Pulse Oximetry 99 98 99 08/03/20 13:00 08/03/20 13:30 08/03/20 13:46 Temperature Pulse Rate 70 69 Respiratory Rate Blood Pressure Pulse Oximetry 100 99 97 08/03/20 14:00 08/03/20 14:20 Temperature 97.8 F Pulse Rate 71 69 Respiratory Rate 14 Blood Pressure 144/85 H Pulse Oximetry 99 100 <Mary Jo Gilbert DO - Last Filed: 08/03/20 18:13> Orders Ordered: ED Orders 08/03/20 11:09 XR ribs LT min 3V w CXR1V Stat 08/03/20 12:14 CT head/brain wo con Stat RT Consult Eval and Treat NOW Discontinued Medications Hydrocodone Bitart/Acetaminophen (Hydrocodone/Acet 5/325 Tablet) 1 tab PO NOW ONE Stop: 08/03/20 12:15 Last Admin: 08/03/20 12:54 Dose: 1 tab Documented by: HOMA Lidocaine (Lidocaine Patch 1 Each Adh..Patch) 1 each TOP NOW ONE Stop: 08/03/20 12:15 Last Admin: 08/03/20 12:55 Dose: 1 each Documented by: HOMA Lidocaine (Remove Lidocaine Patch) 1 each TOP BEDTIME SIVAN Vital Signs Vital signs: Vital Signs - 8 hr 08/03/20 11:00 08/03/20 11:02 08/03/20 11:04 Temperature 97.8 F Pulse Rate 81 81 73 Respiratory Rate 16 Blood Pressure 137/82 127/78 Pulse Oximetry 97 97 97 08/03/20 11:30 08/03/20 12:00 08/03/20 12:31 Temperature Pulse Rate 66 66 68 Respiratory Rate Blood Pressure Pulse Oximetry 99 98 99 08/03/20 13:00 08/03/20 13:30 08/03/20 13:46 Temperature Pulse Rate 70 69 Respiratory Rate Blood Pressure Pulse Oximetry 100 99 97 08/03/20 14:00 08/03/20 14:20 Temperature 97.8 F Pulse Rate 71 69 Respiratory Rate 14 Blood Pressure 144/85 H Pulse Oximetry 99 100 MDM - Trauma <TYRONE Alan - Last Filed: 08/03/20 15:56> Imaging Data Rib x-ray: Radiologist's Impression: [address] [id number] ReportSigned Patient: Devonte Larson PMR#: [id number]: 1950Acct:[id number]/Sex: 70 / MDate of Service: 08/03/20Loc: EDAccession Number: [id number] Procedure: XR ribs LT min 3V w CXR1V Ordering Provider: Mary Jo Gilbert D.O. PROCEDURE: XR RIBS LT MIN 3V W CXR1V INDICATIONS: fall on Tuesday,left RIB PAIN TECHNIQUE: 2 views of the left ribs were acquired, along with a single view chest. COMPARISON: None. FINDINGS: Surgical changes and devices: None. Bones and chest wall: Mild deformity the posterior left 12th rib. Suggest clinical correlation for point tenderness. Subtle anterior lateral left 10th rib fracture. No suspicious bony lesions. Overlying soft tissues appear unremarkable. Lungs and pleura: No pleural effusions or pneumothorax. Lungs appear clear. Mediastinum: Mediastinal contours appear normal. Heart size is normal. IMPRESSION: 1. Subtle left anterior lateral 10th rib fracture. 2. Question posterior left 12th rib fracture. 3. No evidence acute pulmonary process. Dictated by: Jarrett Rosales M.D. on 08/03/2020 at 10:36 Approved by: Jarrett Rosales M.D. on 08/03/2020 at 10:39 CT scan - head: Radiologist's Impression: [address] [id number] ReportSigned Patient: Devonte Larson PMR#: [id number]: 1950Acct:[id number]/Sex: 70 / MDate of Service: 08/03/20Loc: EDAccession Number: [id number] Procedure: XR ribs LT min 3V w CXR1V Ordering Provider: Mary Jo Gilbert D.O. PROCEDURE: XR RIBS LT MIN 3V W CXR1V INDICATIONS: fall on Tuesday,left RIB PAIN TECHNIQUE: 2 views of the left ribs were acquired, along with a single view chest. COMPARISON: None. FINDINGS: Surgical changes and devices: None. Bones and chest wall: Mild deformity the posterior left 12th rib. Suggest clinical correlation for point tenderness. Subtle anterior lateral left 10th rib fracture. No suspicious bony lesions. Overlying soft tissues appear unremarkable. Lungs and pleura: No pleural effusions or pneumothorax. Lungs appear clear. Mediastinum: Mediastinal contours appear normal. Heart size is normal. IMPRESSION: 1. Subtle left anterior lateral 10th rib fracture. 2. Question posterior left 12th rib fracture. 3. No evidence acute pulmonary process. Dictated by: Jarrett Rosales M.D. on 08/03/2020 at 10:36 Approved by: Jarrett Rosales M.D. on 08/03/2020 at 10:39 [facility] Narrative Medical decision making narrative: The patient is a 70-year-old male who presents 2 days after ground level fall on blood thinners while drinking some beers and taking his sleep medication at the same time. X-ray shows a subtle left anterior lateral 10th rib fracture, which correlates with his tenderness. There is the possibility of a posterior left rib fracture, though the patient has a no point tenderness reflecting clinical correlation. The patient does state that he has a history of old fractures, which this might be reflecting. I did discuss at length with patient and his that is unsafe to take his sleep medication after drinking beers. Discussed at length coming back to ER for acute concerns such as increased shortness of breath etcetera. Discussed monitoring for fever, use of incentive spirometer to help prevent pneumonia. Patient and have no questions or concerns upon discharge states understanding return precautions as well as follow-up care. I urged them to contact his primary care provider tomorrow to help arrange follow-up in the next few days. Patient has been hemodynamically stable throughout his stay in the emergency department. Discharge Plan Departure Patient Disposition: Home Clinical Impression: Fall from ground level Closed rib fracture Qualifiers: Encounter type: initial encounter Rib fracture type: single rib Laterality: left Qualified Code(s): S22.32XA - Fracture of one rib, left side, initial encounter for closed fracture Instructions: How to Use an Incentive Spirometer, DI for Rib Fracture, How to Prevent Falls Activity Restrictions/Additional Instructions: Thank you for trusting us with your care today. As discussed, you have fractured a rib. Please do not drink alcohol and take sleep medication in the future, this can be a bad combination. I also [facility] [place] I have given you a prescription of a narcotic for pain. Be aware that this can be constipating and sedating. I encouraged taking with a stool softener, pushing fluids and fiber. Do not take and drive, operate heavy machinery, etc. Do not combine it with any other sedating substances such as alcohol. The combination of narcotics and alcohol and/or other sedatives can be lethal. As discussed please use the incentive spirometer to help prevent pneumonia. Please monitor for fever, difficulty breathing, productive sputum and come back to the emergency department for any acute concerns. Prescriptions: New hydrocodone-acetaminophen 5-325 mg tablet 1 tab PO Q4-6H PRN (Reason: pain) Qty: 10 RF: 0 lidocaine 5 % adhesive patch,medicated 1 patch topical DAILY PRN (Reason: pain) Qty: 15 RF: 0 No Action melatonin 10 MG capsule 10 mg PO HS Qty: 0 RF: 0 trazodone 100 MG tablet 100 mg PO BEDTIME Qty: 0 RF: 0 Xarelto 20 mg tablet 20 mg PO DAILY RF: 0 Alfuzosine 10 mg PO DAILY RF: 0 cyclobenzaprine 10 mg Tablet 10 mg PO TID PRN (Reason: Spasms) RF: 0 oxybutynin chloride 10 mg Tablet Extended Release 24hr 10 mg PO DAILY RF: 0 spironolactone 25 mg Tablet 25 mg PO DAILY RF: 0 famotidine 20 mg Tablet 20 mg PO DAILY RF: 0 pramipexole 0.125 mg Tablet 0.25 mg PO DAILY RF: 0 omeprazole 20 mg Capsule,Delayed Release(Dr/Ec) 40 mg PO DAILY RF: 0 furosemide 20 mg Tablet 20 mg PO DAILY RF: 0 lisinopril 2.5 mg Tablet 2.5 mg PO DAILY RF: 0 metoclopramide HCl [Reglan] 5 MG tablet 5 mg PO TID RF: 0 hydrocodone-acetaminophen 5-325 mg Tablet 1 tab PO Q6H PRN (Reason: Muscle Pain) 7 Days Qty: 20 RF: 0 miscellaneous medical supply Misc See Rx Instructions .ROUTE .COMPLEX Qty: 1 RF: 0 Referrals: Bindu Mancia PA-C [Primary Care Provider] - Bindu Fatima PA-C [Non-Staff] - <Mary Jo Gilbert DO - Last Filed: 08/03/20 18:13> Cosign ED Attending Anne Attestation: I was immediately available in the department for consultation. Documentation has been reviewed.
== END 2020-08-03 14:21 | disposition home or self-care (01) ==
PROVIDERS: Emergency Provider Nurse Practitioner Family; PCP Physician Assistant
DX: S22.32XA Fracture of one rib, left side, initial encounter for closed fracture (principal); W18.30XA Fall on same level, unspecified, initial encounter; Z79.01 Long term (current) use of anticoagulants
CPT/HCPCS: 70450; 71101; 99283; 99284

== ENCOUNTER 2020-10-14 19:47 | Emergency (ER) | payer BC, MEDICARE, SELFPAY ==
[2020-10-14] VITALS (8 sets, daily range): BP systolic 105–126; BP diastolic 71–78; PULSE 67–80; RESP 13–25; TEMP 36.2; O2SAT 97–99; BMI 26.4
--- NOTE | 2020-10-14 20:03 | DI.RAD.S_ITS ---
PROCEDURE: XR CHEST 1V INDICATIONS: chest pain TECHNIQUE: One view of the chest was acquired. COMPARISON: [facility], CR, XR CHEST 1V, 09/15/2019, 17:52. FINDINGS: Surgical changes and devices: None. Lungs and pleura: Scattered subsegmental scarring and/or atelectasis. No acute consolidation. No pleural effusions or pneumothorax. Mediastinum: Mediastinal contours appear normal. Heart size is normal. Bones and chest wall: No suspicious bony lesions. Overlying soft tissues appear unremarkable. IMPRESSION: No acute disease. Dictated by: Aki Allen M.D. on 10/14/2020 at 20:22 Approved by: Aki Allen M.D. on 10/14/2020 at 20:23
[2020-10-14 20:19] LABS: Add Manual Diff / Slide Review NO; Basophils Absolute Auto 0 /uL (0-100); Basophils Percent Auto 0.8 % (0-2); Eosinophils Absolute Auto 200 /uL (0-450); Eosinophils Percent Auto 3.7 % (2-4); Hematocrit 37.8 % (41-53); Hemoglobin 13.2 g/dL (13.5-17.5); Lymphocytes Absolute Auto 1900 /uL (1100-4500); Lymphocytes Percent Auto 36.4 % (25-40); Mean Corpuscular HGB Conc 34.9 % (30-36); Mean Corpuscular Hemoglobin 32.2 PG (26-34); Monocytes Absolute Auto 500 /uL (0-900); Neutrophils Absolute Auto 2600 /uL (1500-7000); Neutrophils Percent Auto 50.1 % (50-75); Platelet Count 222 X10^3/uL (150-400); Red Blood Cell Count 4.11 X10^6/uL (4.5-5.9); Red Cell Distribution Width 13.6 % (11.6-14.8); White Blood Cell Count 5.1 X10^3/uL (4.5-11.0)
--- NOTE | 2020-10-14 20:21 | ED_ITS ---
HPI - Chest Pain General Chief Complaint: Chest Pain Stated Complaint: chest pain Time Seen by Provider: 10/14/20 20:13 Source: patient and family Mode of arrival: Ambulatory Limitations: no limitations History of Present Illness HPI narrative: Patient here with . Complains a reproducible sternal chest pain with deep breath. No exertional chest pain or dyspnea. No nausea vomiting sweating. No palpitations. No back pain. No recent illness. No cough cold congestion fever chills. Patient is on Xarelto for chronic AFib. EKG completed. Atrial fibrillation with no RVR. Rate 67. Patient cardiology Dr. Delgado. Pain is not reproducible on palpation. Pain not worse with leaning forward or back Related Data Home Medications Medication Instructions Recorded Confirmed melatonin 10 mg PO HS #0 06/02/17 12/15/19 trazodone 100 mg PO BEDTIME #0 06/02/17 12/15/19 Xarelto 20 mg PO DAILY 09/15/19 12/15/19 Alfuzosine 10 mg PO DAILY 09/20/19 12/15/19 cyclobenzaprine 10 mg PO TID PRN 09/20/19 12/15/19 famotidine 20 mg PO DAILY 09/20/19 12/15/19 furosemide 20 mg PO DAILY 09/20/19 12/15/19 lisinopril 2.5 mg PO DAILY 09/20/19 12/15/19 metoclopramide HCl [Reglan] 5 mg PO TID 09/20/19 12/15/19 omeprazole 40 mg PO DAILY 09/20/19 12/15/19 oxybutynin chloride 10 mg PO DAILY 09/20/19 12/15/19 pramipexole 0.25 mg PO DAILY 09/20/19 12/15/19 spironolactone 25 mg PO DAILY 09/20/19 12/15/19 Previous Rx's Medication Instructions Recorded hydrocodone-acetaminophen 1 tab PO Q6H PRN 7 Days #20 tab 09/29/19 miscellaneous medical supply See Rx Instructions .ROUTE 09/29/19 .COMPLEX #1 each hydrocodone-acetaminophen 1 tab PO Q4-6H PRN #10 tab 08/03/20 lidocaine 1 patch TOPICAL DAILY PRN #15 ea 08/03/20 Allergies Allergy/AdvReac Type Severity Reaction Status Date / Time methadone [METHADONE] Allergy Unknown Verified 12/15/19 13:40 Review of Systems Review of Systems Narrative: GENERAL: Denies chills, fatigue, malaise, fever, sweats. 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 EYES: Pupils equal round No scleral icterus. No injection no discharge ENT: Mucous membranes moist. NECK: Trachea midline. CARDIOVASCULAR: Irregular regular rate and rhythm without murmurs, no friction rub RESPIRATORY: Clear to auscultation. Breath sounds equal bilaterally. No wheezes, rales, or rhonchi. Nontender skin turned on. Does have pain at the sternal with deep breath GASTROINTESTINAL: Abdomen soft, non-tender EXTREMITIES: No gross deformities. BACK: No flank tenderness. NEURO: AOx4. SKIN: Warm and dry PSYCH: Not anxious, is cooperative Initial Vital Signs Initial Vital Signs: Vital Signs Temperature 97.2 F L 10/14/20 19:50 Pulse Rate 80 10/14/20 19:50 Respiratory Rate 18 10/14/20 19:50 Blood Pressure 126/77 10/14/20 19:50 Pulse Oximetry 99 10/14/20 19:50 Course Course Course Narrative: No new issues during course of stay. Orders Ordered: ED Orders 10/14/20 20:03 XR chest 1V Stat EKG-12 Lead Stat 10/14/20 20:05 Complete Blood Count AUTO DIFF Stat Comprehensive Metabolic Panel Stat D Dimer Stat Lipase Stat Partial Thromboplastin Time Stat Prothrombin Time INR Stat Troponin & CK Cardiac Panel Stat Reevaluation(s) Reevaluation #1: Reviewed results with patient and . 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 Continue home medications. At this time likely chest wall pain. No signs of infection. No clinical signs pericarditis. Or myocarditis Time: 21:35 Consultations Consultation #1: Spoke with Dr. Jones, major appliance assembly supervisor on-call for Dr. Delgado. Does not sound like cardiac in origin. AFib likely chronic. No repeat heart enzymes. Likely chest wall origin. May discharge home if D-dimer negative workup Vital Signs Vital signs: Vital Signs - 8 hr 10/14/20 19:50 10/14/20 20:03 10/14/20 20:08 Temperature 97.2 F L Pulse Rate 80 72 74 Respiratory Rate 18 20 25 H Blood Pressure 126/77 121/71 Pulse Oximetry 99 97 97 10/14/20 20:28 10/14/20 20:30 10/14/20 21:00 Temperature Pulse Rate 73 67 69 Respiratory Rate 13 15 25 H Blood Pressure 125/74 109/71 105/75 Pulse Oximetry 98 98 97 10/14/20 21:30 10/14/20 22:00 Temperature Pulse Rate 69 71 Respiratory Rate 14 14 Blood Pressure 114/78 Pulse Oximetry 97 98 MDM - Chest Pain Differential Diagnosis Differential diagnosis: Likely stable angina, unstable angina pectoris, atypical chest pain, costochondritis, chest pain and other (Pleurisy/costochondritis/atypical chest pain/chest wall pain) Medical Records Data Attestation: I reviewed the patient's medical records. Lab Data Attestation: I reviewed the patient's lab results. Result diagrams: 10/14/20 20:05 10/14/20 20:05 Labs: Lab Results 10/14/20 10/14/20 10/14/20 Range/Units 20:05 20:05 20:05 WBC 5.1 (4.5-11.0) X10^3/uL RBC 4.11 L (4.5-5.9) X10^6/uL Hgb 13.2 L (13.5-17.5) g/dL Hct 37.8 L (41-53) % MCV 92.0 (80-100) fL MCH 32.2 (26-34) PG MCHC 34.9 (30-36) % RDW 13.6 (11.6-14.8) % Plt Count 222 (150-400) X10^3/uL Neut % (Auto) 50.1 (50-75) % Lymph % (Auto) 36.4 (25-40) % Independence % (Auto) 9.0 (3-14) % Eos % (Auto) 3.7 (2-4) % Baso % (Auto) 0.8 (0-2) % Neut # (Auto) 2600 (4164-2694) /uL Lymph # (Auto) 1900 (9222-8730) /uL Independence # (Auto) 500 (0-900) /uL Eos # (Auto) 200 (0-450) /uL Baso # (Auto) 0 (0-100) /uL PT 16.4 H (10.1-12.7) SECONDS INR 1.4 H (0.9-1.3) APTT 36 (26.4-36.2) SECONDS D-Dimer (<230) ng/mL Sodium 128 L (137-145) mmol/L Potassium 3.7 (3.4-5.1) mmol/L Chloride 95 L (98-107) mmol/L Carbon Dioxide 26 (22-32) mmol/L BUN 10 (9-20) mg/dL Creatinine 0.97 (0.66-1.25) mg/dL Estimated GFR > 60.0 (>60) mL/min BUN/Creatinine Ratio 10.3 (6-22) Glucose 107 (80-110) mg/dL Calcium 8.9 (8.4-10.2) mg/dL Total Bilirubin 0.3 (0.2-1.3) mg/dL AST 28 (17-59) IU/L ALT 12 (<50) IU/L Alkaline Phosphatase 73 (38-126) U/L Total Creatine Kinase 67 (55-170) U/L CK-MB (CK-2) TNP CK-MB (CK-2) Rel Index TNP Troponin I < 0.012 (0.01-0.034) ng/mL Total Protein 7.1 (6.3-8.2) g/dL Albumin 4.0 (3.5-5.0) g/dL Globulin 3.1 (1.7-4.1) g/dL Albumin/Globulin Ratio 1.3 (1.0-2.8) Lipase 27 (23-300) U/L 05/25/21 Range/Units 20:05 WBC (4.5-11.0) X10^3/uL RBC (4.5-5.9) X10^6/uL Hgb (13.5-17.5) g/dL Hct (41-53) % MCV (80-100) fL MCH (26-34) PG MCHC (30-36) % RDW (11.6-14.8) % Plt Count (150-400) X10^3/uL Neut % (Auto) (50-75) % Lymph % (Auto) (25-40) % Independence % (Auto) (3-14) % Eos % (Auto) (2-4) % Baso % (Auto) (0-2) % Neut # (Auto) (6404-6486) /uL Lymph # (Auto) (2433-3237) /uL Independence # (Auto) (0-900) /uL Eos # (Auto) (0-450) /uL Baso # (Auto) (0-100) /uL PT (10.1-12.7) SECONDS INR (0.9-1.3) APTT (26.4-36.2) SECONDS D-Dimer < 200 (<230) ng/mL Sodium (137-145) mmol/L Potassium (3.4-5.1) mmol/L Chloride (98-107) mmol/L Carbon Dioxide (22-32) mmol/L BUN (9-20) mg/dL Creatinine (0.66-1.25) mg/dL Estimated GFR (>60) mL/min BUN/Creatinine Ratio (6-22) Glucose (80-110) mg/dL Calcium (8.4-10.2) mg/dL Total Bilirubin (0.2-1.3) mg/dL AST (17-59) IU/L ALT (<50) IU/L Alkaline Phosphatase (38-126) U/L Total Creatine Kinase (55-170) U/L CK-MB (CK-2) CK-MB (CK-2) Rel Index Troponin I (0.01-0.034) ng/mL Total Protein (6.3-8.2) g/dL Albumin (3.5-5.0) g/dL Globulin (1.7-4.1) g/dL Albumin/Globulin Ratio (1.0-2.8) Lipase (23-300) U/L Imaging Data Chest x-ray: Radiologist's Impression: [address] [id number] ReportSigned Patient: Devonte Larson PMR#: [id number]: 1950Acct:[id number]/Sex: 70 / MDate of Service: 10/14/20Loc: EDAccession Number: [id number] Procedure: XR chest 1V Ordering Provider: Scott Saldivar MD PROCEDURE: XR CHEST 1V INDICATIONS: chest pain TECHNIQUE: One view of the chest was acquired. COMPARISON: [facility] , XR CHEST 1V, 09/15/2019, 17:52. FINDINGS: Surgical changes and devices: None. Lungs and pleura: Scattered subsegmental scarring and/or atelectasis. No acute consolidation. No pleural effusions or pneumothorax. Mediastinum: Mediastinal contours appear normal. Heart size is normal. Bones and chest wall: No suspicious bony lesions. Overlying soft tissues appear unremarkable. IMPRESSION: No acute disease. Dictated by: Aki Allen M.D. on 10/14/2020 at 20:22 Approved by: Aki Allen M.D. on 10/14/2020 at 20:23 ECG Data Attestation: I personally reviewed and interpreted this ECG as follows: Interpretation: Atrial fibrillation rate [address] elevation or depression. MDM Narrative Medical decision making narrative: Appropriate for discharge home. Exam as well as imaging and laboratory studies reassuring. Reviewed with major appliance assembly supervisor. Patient and family agree with treatment plan and follow-up. Discharge Plan Departure Patient Disposition: Home Clinical Impression: Acute chest wall pain Instructions: DI for Costochondritis, DI for Chest Pain Activity Restrictions/Additional Instructions: Return if worse or any questions or concerns. See family doctor in your major appliance assembly supervisor this week for recheck. May continue home medications. Prescriptions: No Action melatonin 10 MG capsule 10 mg PO HS Qty: 0 RF: 0 trazodone 100 MG tablet 100 mg PO BEDTIME Qty: 0 RF: 0 hydrocodone-acetaminophen 5-325 mg tablet 1 tab PO Q4-6H PRN (Reason: pain) Qty: 10 RF: 0 lidocaine 5 % adhesive patch,medicated 1 patch topical DAILY PRN (Reason: pain) Qty: 15 RF: 0 Xarelto 20 mg tablet 20 mg PO DAILY RF: 0 Alfuzosine 10 mg PO DAILY RF: 0 cyclobenzaprine 10 mg Tablet 10 mg PO TID PRN (Reason: Spasms) RF: 0 oxybutynin chloride 10 mg Tablet Extended Release 24hr 10 mg PO DAILY RF: 0 spironolactone 25 mg Tablet 25 mg PO DAILY RF: 0 famotidine 20 mg Tablet 20 mg PO DAILY RF: 0 pramipexole 0.125 mg Tablet 0.25 mg PO DAILY RF: 0 omeprazole 20 mg Capsule,Delayed Release(Dr/Ec) 40 mg PO DAILY RF: 0 furosemide 20 mg Tablet 20 mg PO DAILY RF: 0 lisinopril 2.5 mg Tablet 2.5 mg PO DAILY RF: 0 metoclopramide HCl [Reglan] 5 MG tablet 5 mg PO TID RF: 0 hydrocodone-acetaminophen 5-325 mg Tablet 1 tab PO Q6H PRN (Reason: Muscle Pain) 7 Days Qty: 20 RF: 0 miscellaneous medical supply Misc See Rx Instructions .ROUTE .COMPLEX Qty: 1 RF: 0 Referrals: Bindu Mancia PA-C [Primary Care Provider] -
[2020-10-14 20:23] LABS: INR 1.4 (0.9-1.3); Prothrombin Time 16.4 SECONDS (10.1-12.7)
[2020-10-14 20:26] LABS: PTT Partial Thromboplastin Tim 36 SECONDS (26.4-36.2)
[2020-10-14 20:30] LABS: Alanine Aminotransferase 12 IU/L (<50); Albumin Globulin Ratio 1.3 (1.0-2.8); Alkaline Phosphatase 73 U/L (38-126); Aspartate Aminotransferase 28 IU/L (17-59); BUN Creatinine Ratio 10.3 (6-22); Bilirubin Total 0.3 mg/dL (0.2-1.3); Blood Urea Nitrogen 10 mg/dL (9-20); Calcium 8.9 mg/dL (8.4-10.2); Carbon Dioxide 26 mmol/L (22-32); Chloride 95 mmol/L (98-107); Creatine Kinase 67 U/L (55-170); Estimated Glomerular Filt Rate > 60.0 mL/min (>60); Globulin 3.1 g/dL (1.7-4.1); Glucose 107 mg/dL (80-110); HEMOLYSIS < 15 (0-50); Lipase 27 U/L (23-300); Potassium 3.7 mmol/L (3.4-5.1); Sodium 128 mmol/L (137-145); Total Protein 7.1 g/dL (6.3-8.2)
[2020-10-14 20:41] LABS: Troponin I < 0.012 ng/mL (0.01-0.034)
[2020-10-14 21:26] LABS: D Dimer < 200 ng/mL (<230)
== END 2020-10-14 22:15 | disposition home or self-care (01) ==
PROVIDERS: Emergency Provider Emergency Medicine; PCP Physician Assistant
DX: R07.89 Other chest pain (principal); Z79.01 Long term (current) use of anticoagulants
CPT/HCPCS: 36415; 71045; 80053; 82550; 83690; 84484; 85025; 85379; 85610; 85730; 93005; 99283; 99284

== ENCOUNTER 2023-12-24 02:54 | Emergency (ER) | payer BC, MEDICARE, SELFPAY ==
--- NOTE | 2023-12-24 03:01 | DI.CT.S_ITS ---
PROCEDURE: CT CERVICAL SPINE WO CON INDICATIONS: GLF/HEAD/NECK INJ TECHNIQUE: Noncontrast 3 mm thick sections acquired from the skull base to the T4 level. Sagittal and coronal reformats were then constructed. For radiation dose reduction, the following was used: automated exposure control, adjustment of mA and/or kV according to patient size. COMPARISON: [facility], CT, CT CERVICAL SPINE WO CON, 09/15/2019, 17:02. FINDINGS: Image quality: Excellent. Bones: No fractures or dislocations. Redemonstration of multilevel degenerative changes of the cervical spine. Partial ankylosis of C4 and C5 vertebral bodies and facet joints. Decreased osseous mineralization. Visualized superior ribs are intact. Soft tissues: Prevertebral soft tissues are normal in thickness. No paravertebral hematomas. No apical pneumothoraces. IMPRESSION: No displaced fracture or traumatic subluxation. Multilevel degenerative changes of the cervical spine. Findings are concordant with preliminary interpretation provided by [facility]. Dictated by: Juan Ramon Padilla M.D. on 12/24/2023 at 7:39 Approved by: Juan Ramon Padilla M.D. on 12/24/2023 at 7:41
--- NOTE | 2023-12-24 03:01 | DI.CT.S_ITS ---
PROCEDURE: CT HEAD/BRAIN WO CON INDICATIONS: GLF/HIT HEAD ON XARELTO TECHNIQUE: Noncontrast 4.5 mm thick angled axial sections acquired from the foramen magnum to the vertex, with coronal and sagittal reformats. For radiation dose reduction, the following was used: automated exposure control, adjustment of mA and/or kV according to patient size. COMPARISON: [facility], CT, CT HEAD/BRAIN WO CON, 08/03/2020, 11:16. FINDINGS: Image quality: Diagnostic. CSF spaces: Basal cisterns are patent. No extra-axial fluid collections. The ventricles are symmetric in size and shape. Brain: No intracranial bleeds or masses. There is cerebral volume loss for age, with resultant ventricular and sulcal prominence. There are periventricular and deep white matter chronic small vessel ischemic changes. There is intracranial internal carotid artery atherosclerosis. Skull and face: Calvarium and visualized facial bones appear intact, without suspicious lesions. Sinuses: Visualized sinuses and mastoids are clear. IMPRESSION: No acute intracranial pathology. Findings are concordant with preliminary interpretation provided by [facility]. Dictated by: Juan Ramon Padilla M.D. on 12/24/2023 at 7:38 Approved by: Juan Ramon Padilla M.D. on 12/24/2023 at 7:39
--- NOTE | 2023-12-24 03:04 | ED_ITS ---
HPI - Fall General Chief Complaint: Trauma Stated Complaint: fell hit his head on blood thinners Time Seen by Provider: 12/24/23 02:58 History of Present Illness HPI Narrative: 73-year-old male presents for evaluation of head injury after ground level fall. Patient has unsteady gait at baseline and walks with a cane. He had several drinks of alcohol and was walking in the kitchen when he tripped over a small elevation in the floor. He hit his face but did not lose consciousness. On Xarelto Related Data Home Medications Medication Instructions Recorded Confirmed melatonin 10 mg capsule 10 mg PO HS ##0 06/02/17 12/15/19 trazodone 100 mg tablet 100 mg PO BEDTIME ##0 06/02/17 12/15/19 rivaroxaban 20 mg tablet (Xarelto) 20 mg PO DAILY 09/15/19 12/15/19 Alfuzosine 10 mg PO DAILY 09/20/19 12/15/19 cyclobenzaprine 10 mg tablet 10 mg PO TID PRN Spasms 09/20/19 12/15/19 famotidine 20 mg tablet 20 mg PO DAILY 09/20/19 12/15/19 furosemide 20 mg tablet 20 mg PO DAILY 09/20/19 12/15/19 lisinopril 2.5 mg tablet 2.5 mg PO DAILY 09/20/19 12/15/19 metoclopramide HCl 5 mg tablet 5 mg PO TID 09/20/19 12/15/19 (Reglan) omeprazole 20 mg capsule,delayed 40 mg PO DAILY 09/20/19 12/15/19 release oxybutynin chloride 10 mg 10 mg PO DAILY 09/20/19 12/15/19 tablet,extended release 24 hr pramipexole 0.125 mg tablet 0.25 mg PO DAILY 09/20/19 12/15/19 spironolactone 25 mg tablet 25 mg PO DAILY 09/20/19 12/15/19 Previous Rx's Medication Instructions Recorded hydrocodone 5 mg-acetaminophen 325 1 tab PO Q6H PRN Muscle Pain 7 09/29/19 mg tablet days #20 tabs miscellaneous medical supply See Rx Instructions .Route 09/29/19 .COMPLEX #1 ea hydrocodone 5 mg-acetaminophen 325 1 tab PO Q4-6H PRN pain #10 tabs 08/03/ mg tablet lidocaine 5 % topical patch 1 patch topical DAILY PRN pain #15 08/03/20 ea Allergies Allergy/AdvReac Type Severity Reaction Status Date / Time methadone [METHADONE] Allergy Unknown Verified 12/15/19 13:40 Patient History Medical History UTI (urinary tract infection) Foot drop, right Restless leg syndrome Neurogenic bladder 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 Atrial fibrillation Surgical History Hx of lumbosacral spine surgery History of fusion of cervical spine History of spinal surgery Family History Father Stroke Mother Diabetes mellitus Brother Diabetes mellitus Social History household members: spouse Smoking Status: Former smoker alcohol intake: current Smoking Status: Former smoker alcohol intake frequency: holidays/special occasions only Substance Use Type: does not use Exam Initial Vital Signs Initial Vital Signs: Vital Signs Pulse Rate 66 12/24/23 03:05 Pulse Oximetry 98 12/24/23 03:05 Oxygen Delivery Method Room Air 12/24/23 03:05 Const: Awake, alert, no acute distress, nontoxic appearing HEENT: minimal contusion L forehead, PERRL, EOMI Skin: Warm, Dry, intact, no rashes Neuro: AO x3, CN II-XII grossly intact, moves all extremities Course Orders Ordered: ED Orders 12/24/23 03:01 CT cervical spine wo con Stat CT head/brain wo con Stat Vital Signs Vital signs: Vital Signs - 8 hr 12/24/23 03:05 12/24/23 03:10 Temperature 96.9 F L Pulse Rate 66 73 Respiratory Rate 17 Blood Pressure 114/70 Pulse Oximetry 98 96 Oxygen Delivery Method Room Air Room Air MDM - Fall Differential Diagnosis Differential diagnosis: Likely compression fracture, concussion with loss of consciousness and concussion without loss of consciousness Imaging Data CT scan - head: Radiologist's Impression: Preliminary read: No acute findings, no bleed CT - cervical spine: Radiologist's Impression: Preliminary read: No acute traumatic findings MDM Narrative Medical decision making narrative: Ground level fall on thinners. CT brain and C-spine negative for acute traumatic findings. Patient discharged home with his in stable condition Discharge Plan Departure Patient Disposition: Home Clinical Impression: Closed head injury Instructions: DI for Closed Head Injury Activity Restrictions/Additional Instructions: Take Tylenol as needed for pain and apply ice to any areas of swelling Prescriptions: No Action melatonin 10 MG capsule 10 mg PO HS Qty: 0 trazodone 100 MG tablet 100 mg PO BEDTIME Qty: 0 hydrocodone-acetaminophen 5-325 mg tablet 1 tab PO Q4-6H PRN (Reason: pain) Qty: 10 0RF lidocaine 5 % adhesive patch,medicated 1 patch topical DAILY PRN (Reason: pain) Qty: 15 0RF Rx Instructions: leave on most painful area for up to 12 hrs Xarelto 20 mg tablet 20 mg PO DAILY Alfuzosine 10 mg PO DAILY cyclobenzaprine 10 mg Tablet 10 mg PO TID PRN (Reason: Spasms) Patient Comments: PRN oxybutynin chloride 10 mg Tablet Extended Release 24hr 10 mg PO DAILY spironolactone 25 mg Tablet 25 mg PO DAILY famotidine 20 mg Tablet 20 mg PO DAILY pramipexole 0.125 mg Tablet 0.25 mg PO DAILY omeprazole 20 mg Capsule,Delayed Release(Dr/Ec) 40 mg PO DAILY furosemide 20 mg Tablet 20 mg PO DAILY lisinopril 2.5 mg Tablet 2.5 mg PO DAILY metoclopramide HCl [Reglan] 5 MG tablet 5 mg PO TID hydrocodone-acetaminophen 5-325 mg Tablet 1 tab PO Q6H PRN (Reason: Muscle Pain) 7 Days Qty: 20 0RF miscellaneous medical supply Misc See Rx Instructions .ROUTE .COMPLEX Qty: 1 0RF Rx Instructions: One platform Referrals: Bindu Mancia PA-C [Primary Care Provider] - Stand Alone Forms: Patient Portal/API
[2023-12-24 03:05] VITALS: PULSE 66; O2SAT 98
[2023-12-24 03:10] VITALS: BP 114/70; PULSE 73; RESP 17; TEMP 36.1; O2SAT 96; BMI 26.4
[2023-12-24 03:41] VITALS: BP 101/66; PULSE 56; O2SAT 96
[2023-12-24 04:00] VITALS: BP 103/70; PULSE 70; RESP 18; O2SAT 97
== END 2023-12-24 04:14 | disposition home or self-care (01) ==
PROVIDERS: Emergency Provider Emergency Medicine; PCP Physician Assistant
DX: S09.90XA Unspecified injury of head, initial encounter (principal); W18.30XA Fall on same level, unspecified, initial encounter; Z79.01 Long term (current) use of anticoagulants; Z79.899 Other long term (current) drug therapy
CPT/HCPCS: 70450; 72125; 99283; 99284